=== PATIENT | male | born 1945 | race Caucasian/White ===

== ENCOUNTER → 2016-09-16 | Outpatient (CLI) | payer MEDICARE ==
[~2016-09-16] MED LIST: ASPI81TA45 PO; COLA100C3 PO; DULC5TAB PO; GLIP10TA PO; LISI-538 PO; LORT1ELX8 PO; MAGNESIUM OXIDE PO; METF1000 PO; NORCOTAB PO; SENO8.6T2 PO; SIMV20TA2 PO; ZOFR20TA PO
--- NOTE | 2016-09-16 11:56 | RADONC ---
RADIATION ONCOLOGY PROGRESS NOTE DATE: 09/16/2016 CHART NUMBER: [id number] DIAGNOSIS: Prostate cancer. STAGE: II, [id number]. ECOG PERFORMANCE STATUS: 0. FOLLOWUP NOTE: Mr. 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 The patient presents today reporting that he is doing quite well with no complaints today related to his radiation therapy or disease. He has no urinary or bowel difficulties and no bone pain. The patient's review of systems is noncontributory. He denies nausea, vomiting, fevers, chills, night sweats, diplopia, headaches, anxiety or depression, anorexia, weight loss, visual disturbances, chest pain, urinary or bowel difficulties, bone pain, or neurological problems. PHYSICAL EXAMINATION: The patient is a well-developed, well-nourished male in no acute distress. HEENT exam is normocephalic, atraumatic. Extraocular movements are intact. There is no palpable cervical, supraclavicular, infraclavicular, axillary, or inguinal lymphadenopathy present. Lungs are clear to auscultation and percussion. Heart has a regular rate and rhythm. Abdomen is benign with no hepatosplenomegaly, masses, or tenderness. Rectal examination reveals a normal anal sphincter tone. His prostate is smooth with no evidence of nodularity. Skeletal examination reveals no tenderness to pressure or percussion of the bony skeleton. Extremities reveal no clubbing, cyanosis, or edema. Neurologic exam is grossly intact as is the remainder of the physical examination. ASSESSMENT: The patient is clinically DARRIUS at this time and will be seen by me again in 1 year for further followup. He will also continue to be followed by his other physicians as well. cc: MD Juan Quintana MD
== END ==
LOC: M ONCR 11:16
PROVIDERS: ATTEND Radiology Radiation Oncology
DX: C61 Malignant neoplasm of prostate (principal)

== ENCOUNTER → 2016-11-02 | Outpatient (CLI) | payer MEDICARE ==
[~2016-11-02] VITALS: Ht 180.3 cm; Wt 96.2 kg
[~2016-11-02] MED LIST changes: +ASPI81TA85 PO; +DITR5TAB PO; +LIDOCAINE 2% INJ 100 MG/5 ML SDV (FOR ANES.) As Ordered ONE; +MAGN400C3 PO; +NAPR250T2 PO; +NS 1,000 ML IV ONE; +OMEP10CASR PO; +PROPOFOL 200 MG/20 ML VIAL As Ordered ONE
--- NOTE | 2016-11-02 09:26 | ROOR ---
Patient Name: Kev Angel Procedure Date: 11/02/2016 9:08 AM Date of : 1945 Age: 71 Room: [facility] Gender: Male Note Status: Finalized Procedure: Upper GI endoscopy Indications: Surveillance for malignancy due to personal history of Vega's esophagus Providers: Kev ARIZA MD Referring MD: Dolores GOULD MD Requesting Provider: Medicines: Monitored Anesthesia Care Complications: No immediate complications. Procedure: Pre-Anesthesia Assessment: - The heart rate, respiratory rate, oxygen saturations, blood pressure, adequacy of pulmonary ventilation, and response to care were monitored throughout the procedure. The Endoscope was introduced through the mouth, and advanced to the second part of duodenum. The upper GI endoscopy was accomplished without difficulty. The patient tolerated the procedure well. Findings: The Z-line was regular and was found 36 cm from the incisors. This was biopsied with a cold forceps for histology. A medium-sized hiatal hernia was present. The entire examined stomach was normal. The examined duodenum was normal. Impression: - Z-line regular, 36 cm from the incisors. No definite barretts esophagus was seen. Biopsied. - Medium-sized hiatal hernia. - Normal stomach. - Normal examined duodenum. Recommendation: - Continue present medications. Kev Ariza MD Kev ARIZA MD 11/02/2016 9:25:57 AM This report has been signed electronically. Number of Addenda: 0 Note Initiated On: 11/02/2016 9:08 AM Estimated Blood Loss: Estimated blood loss: none.
[2016-11-02 09:37] VITALS: BP 145/73
== END | disposition home or self-care (01) ==
LOC: M OPP 07:01
PROVIDERS: ATTEND Internal Medicine Gastroenterology
DX: K22.70 Barrett's esophagus without dysplasia (principal); R12 Heartburn; K44.9 Diaphragmatic hernia without obstruction or gangrene; I10 Essential (primary) hypertension; E78.5 Hyperlipidemia, unspecified; E11.9 Type 2 diabetes mellitus without complications; M19.90 Unspecified osteoarthritis, unspecified site; Z85.46 Personal history of malignant neoplasm of prostate; Z92.3 Personal history of irradiation; Z88.0 Allergy status to penicillin; Z79.82 Long term (current) use of aspirin; Z79.84 Long term (current) use of oral hypoglycemic drugs; Z79.899 Other long term (current) drug therapy

== ENCOUNTER 2019-05-18 06:24 | Day surgery (SDC) | payer MEDICARE ==
--- NOTE | 2019-05-16 09:11 | CR ---
DATE OF CONSULTATION: Preoperative consultation for Dr. Eubanks for right extracorporeal shock wave lithotripsy under conscious sedation scheduled 05/18/2019. Dear Dr. Eubanks: Thank you for asking me to see Mr. Kev Angel in consultation prior to his urologic procedure. Mr. Kve Angel is a 74-year-old gentleman, past medical history of type 2 diabetes, hypertension, hyperlipidemia, reporting that he has been in his usual state of good health. The patient reports his weight has been down. He has been eating less after having had a burn in his mouth which is presently improving and he is regaining some of the weight he lost. The patient has known hypertension. Denies any chest pain, palpitations, syncope or presyncope. Patient has type 2 diabetes. Denies polyuria, polyphagia, polydipsia. Reports compliance with his metformin and glipizide. Patient has history of compression fracture, right shoulder fracture, sacral coccygeal fracture, and left knee arthroscopy. Reports all these arthritic symptoms are chronic and stable. Patient reports he is active but not exercising regularly, and again denies chest pain, palpitations, syncope or presyncope. Patient reports onset of right low back pain ultimately found to be secondary to kidney stone. Pain is tolerable on just Tylenol. Review of systems otherwise negative. PAST MEDICAL HISTORY: 1. Type 2 diabetes. 2. Hyperlipidemia. 3. Vega's esophagitis. 4. History of compression fracture. 5. History of right shoulder fracture. 6. Dyaz-id-tcrhphw. 7. Hiatal hernia. 8. Esophageal dysmotility. 9. Low back pain. 10. History of pneumonia. 11. Obesity. 12. Cholecystectomy 05/21/2012. 13. Comp injury right 5th finger 09/19/2005. 14. Prostate CA 07/23/2014. 15. Sacral coccygeal fracture September 2013. 16. Left knee arthroscopy August 2013. 17. Nephrolithiasis right kidney 2018. MEDICATIONS: - baby aspirin daily - glipizide 5 mg two times a day - lisinopril 20 mg daily - magnesium 400 mg two daily - metformin 1000 mg two times a day - omeprazole 20 mg daily - simvastatin 40 mg half to one daily ALLERGIES are to PENICILLIN. SOCIAL HISTORY: Retired, lives with , supportive son lives nearby. Never smoked. Denies alcohol use. FAMILY HISTORY: Mom had a stroke at 84. Dad at 42 of unknown causes. A sister at 73 of pancreatic cancer, chronic obstructive pulmonary disease (COPD). PHYSICAL EXAMINATION: Overweight male in no acute distress. Vital signs are weight 208 with a body mass index (BMI) of 31.2, oxygen saturation 97%, blood pressure 150/72 with a heart rate of 71. HEENT Examination: Head is normocephalic. Neck is supple. Pupils equal, reactive to light. Extraocular movements are intact. He has bilateral cerumen impaction. Tongue is midline. Posterior pharynx without inflammation. Poor dentition. Neck is supple. No thyromegaly, jugular venous distention (JVD) or carotid bruits. Respiratory: Clear to auscultation, resonant to percussion. Cardiovascular: Regular rate and rhythm. No murmur, rub, gallop. Abdomen: Normoactive bowel sounds. No hepatosplenomegaly. Extremities: No cyanosis, clubbing or edema. Some osteoarthritis (OA) changes of the distal interphalangeal joint (DIP) joints. Evidence of severe nail biting with minimal nail visualized. Dermatologic: Multiple moles, perkins angiomas. Neurologic: Alert and oriented. Cranial nerves II-XII are intact. LABORATORY DATA: From 05/12/2019 the patient had a normal med profile, CBC except for a platelet count of 140, acceptable PT/PTT. Normal UA. EKG done in my office 05/15/2019, normal sinus rhythm, rate of 71, normal R wave progression. No atrial or ventricular hypertrophy. He does have Q waves in III and aVF, unchanged from EKG 02/10/2015, cannot rule out inferior myocardial infarction. He has a normal CO, QRS, QTC interval. IMPRESSION: Mr. Kev Angel, 74-year-old gentleman, cardiovascular risk factors positive for hypertension, hyperlipidemia, type 2 diabetes, age, has no signs or symptoms indicative of cardiovascular ischemia and is felt to be optimized and at low risk for cardiovascular complications from the proposed surgical intervention which can be further minimized by the following. PROBLEMS: 1. Diabetes 2. Hold metformin, glipizide a.m. of surgery, resume when taking normal oral intake. Hold aspirin a.m. of surgery as well. 2. Hyperlipidemia. Take simvastatin as usual evening prior to surgery. 3. Vega's esophagitis. Take omeprazole as usual evening prior to surgery. 4. Low back pain. Nonsteroidal anti-inflammatory drugs (NSAIDs) on hold. Use Tylenol if needed. 5. Hypertension. Take lisinopril as usual following surgery. 6. Bilateral ceruminosis. Conservative advice. Thank you very much for this consultation. Please call with questions or concerns.
[~2019-05-18] VITALS: Ht 177.8 cm; Wt 89.3 kg
[~2019-05-18 06:24] MED LIST changes: -COLA100C3 PO; +COLA100C5 PO; +GLIP5TAB8 PO; +HYDR-3715 PO; +LIDOCAINE 1% MDV 20ML VIAL SQ PRN; -LIDOCAINE 2% INJ 100 MG/5 ML SDV (FOR ANES.) As Ordered ONE; +MAGN400C2 PO; -METF1000 PO; +METF10004 PO; -NAPR250T2 PO; +NAPR250T4 PO; -NORCOTAB PO; -NS 1,000 ML IV ONE; -PROPOFOL 200 MG/20 ML VIAL As Ordered ONE; -SENO8.6T2 PO; +SENO8.6T5 PO; -SIMV20TA2 PO; +SIMV20TA22 PO; -ZOFR20TA PO; +ZOFR4TAB16 PO
[2019-05-18] MEDS ORDERED: CIPROFLOXACIN 400 MG in IV 1 EA IV ONE (06:45)
--- NOTE | 2019-05-18 07:11 | REP ---
Clinical: Kidney stone. Technique: Single supine view of the abdomen and pelvis. Findings: No obvious urinary tract calcifications are appreciated. There is a 2 mm calcification in the left deana pelvis which most likely represents phlebolith. Bowel gas pattern is nonspecific. No organomegaly. Skeletal structures demonstrate age-related changes. Impression: No obvious urinary tract calcifications Electronically Signed by Jesse Posey MD 05/18/2019 07:03 A
[2019-05-18] MEDS ORDERED: PROPOFOL 200 MG/20 ML VIAL As Ordered ONE (07:49)
[2019-05-18] MEDS ORDERED: LIDOCAINE 2% INJ 100 MG/5 ML SDV (FOR ANES.) As Ordered ONE (07:50)
[2019-05-18] MEDS ORDERED: ONDANSETRON 4MG/2ML VIAL (J2405) As Ordered ONE (07:50)
[2019-05-18] MEDS ORDERED: LR 1,000 ML IV ONE (07:51)
[2019-05-18] MEDS ORDERED: fentaNYL 100 MCG/2 ML INJECTION (J3010) As Ordered ONE (07:51)
[2019-05-18] MEDS ORDERED: MIDAZOLAM INJ 2 MG/2 ML VIAL (J2250) As Ordered ONE (07:51)
--- NOTE | 2019-05-18 08:07 | ECGEPIP ---
[facility] Test Date: 2019-05-18 Pat Name: MEÑO GONZALEZ Department: Room: - Gender: Male [place] [employer]man: : 1945 Requested By: FLAVIO Thomas Order Number: [id number] Reading MD: Klaus Ballard Measurements Intervals [place] Rate: 76 P: 14 [place]: 207 QRS: -12 QRSD: 91 T: 13 QT: 342 QTc: 385 Interpretive Statements Normal sinus rhythm Q waves in III, AVF of indeterminate significance No significant change when compared to prior tracing of 02/10/2015 Electronically Signed on 05-18-2019 8:07:21 EST by Klaus Ballard
[2019-05-18] MEDS ORDERED: ePHEDrine SULFATE 25 MG/5 ML(5MG/ML) SYRINGE As Ordered ONE (08:41)
[2019-05-18 09:37] VITALS: BP 154/81
--- NOTE | 2019-05-18 09:58 | RO ---
DATE OF PROCEDURE: 05/17/2019 PREPROCEDURE DIAGNOSIS: Right kidney stone. POSTPROCEDURE DIAGNOSIS: Right kidney stone. PROCEDURE: Right extracorporeal shockwave lithotripsy. SURGEON: Dr. Prakash Eubanks SEAT COVERER: None ANESTHESIA: Monitored anesthesia care (MAC). OPERATIVE INDICATIONS: This is a 74-year-old male who was found to have a nonobstructing 4 mm right kidney stone. He was brought to the operating room today for the above listed procedure. DESCRIPTION OF PROCEDURE: The patient was brought to the operating room and MAC anesthesia was administered. Prophylactic antibiotics were infused. He was then placed in the supine position in preparation for right sided extracorporeal shockwave lithotripsy. Ultrasound was utilized to monitor stone position and fragmentation throughout the procedure. Shockwaves were then delivered to the right sided kidney stone ungated. There were no arrhythmias. The stone appeared to fragment well. After 2500 shocks, the procedure was concluded. The patient was then awakened from anesthesia and transported to the recovery room in stable condition. Estimated blood loss: 0 mL. Complications: None. Specimens: None. Plan: The patient will followup in the clinic in a few weeks with imaging prior to assess for residual stone burden. KRISTINA
== END 2019-05-18 10:20 | disposition home or self-care (01) ==
LOC: M SDC 06:24
PROVIDERS: ATTEND Urology
DX: N20.0 Calculus of kidney (principal); I10 Essential (primary) hypertension; E11.9 Type 2 diabetes mellitus without complications; E78.5 Hyperlipidemia, unspecified; Z88.0 Allergy status to penicillin; Z88.5 Allergy status to narcotic agent; Z79.84 Long term (current) use of oral hypoglycemic drugs; Z79.899 Other long term (current) drug therapy; Z92.3 Personal history of irradiation; Z85.46 Personal history of malignant neoplasm of prostate
CPT/HCPCS: 50590; 74018; 93005; J0744; J2250; J2405; J3010

== ENCOUNTER → 2019-11-15 | Outpatient (CLI) | payer MEDICARE ==
[~2019-11-15] MED LIST changes: -LIDOCAINE 1% MDV 20ML VIAL SQ PRN
--- NOTE | 2019-11-19 10:23 | RADONC ---
RADIATION ONCOLOGY DATE OF SERVICE: 11/15/2019 CHART NUMBER: [id number]. DIAGNOSIS: Prostate cancer stage II, [id number]. ECOG PERFORMANCE STATUS: 0. Mr. Angel is a pleasant 74-year-old gentleman, carries the diagnosis of stage II, [id number], [place] 9, 5+4, adenocarcinoma of prostate. He completed external radiation therapy in 2008. He presented today doing very well without any complaints. He has no urinary problems. His nocturia is one to twice. No dysuria. He has no bowel problems. No bone pain. He also denies fever, chills, weight changes, or respiratory problems. PHYSICAL EXAMINATION: Vital signs: He weighs 195.8 pounds, temperature 97.5, pulse 71, respiration 20, blood pressure 178/100, O2 saturation is 98% in room air. He is well developed, nourished, not in apparent distress. The rest of the examination is noncontributory. Lungs are clear. There is no bony tenderness over the spine indicated. ASSESSMENT AND RECOMMENDATION: A 74-year-old gentleman who carries the diagnosis of stage II, [id number], Bri 9, 5+4, adenocarcinoma of the prostate. He completed radiation therapy 11 years ago. He has been doing very well without any complaints. He has no or GI symptoms. He has no bone pain. His last PSA on November 06, 2019, was reported to be 0.16 ng/mL. He was advised continuous followup care with physicians involved, and he is discharged from our care.
== END ==
LOC: M ONCR 08:20
PROVIDERS: ATTEND Radiology Radiation Oncology
DX: C61 Malignant neoplasm of prostate (principal)

== ENCOUNTER → 2020-12-31 | Outpatient (REF) | payer MEDICARE ==
[~2020-12-31] MED LIST changes: -ASPI81TA85 PO; +ASPI81TA86 PO; -LISI-538 PO; +LISI20TA33 PO; +NAPR-849 PO; -NAPR250T4 PO
== END ==
LOC: M LAB REF 16:25
PROVIDERS: ATTEND Internal Medicine
DX: R63.4 Abnormal weight loss (principal); R19.7 Diarrhea, unspecified

== ENCOUNTER → 2021-02-27 | Outpatient (CLI) | payer MEDICARE ==
--- NOTE | 2021-02-27 17:30 | REP ---
INDICATION: M47.02 DYSPHAGIA. COMPARISON: NONE TECHNIQUE: The procedure was performed under the direct supervision of . The procedure was performed with Breana Hurtado from speech pathology present. 2.2 minutes of fluoroscopy time was utilized for this procedure. FINDINGS: 5 cc aliquots of thin, pudding, mixed fruit, soft and solid barium was administered. There is no evidence of penetration or aspiration. A detailed report of this examination will be provided by speech pathology. IMPRESSION: There is no evidence of penetration or aspiration. A detailed report of this examination will be provided by speech pathology. <Electronically signed by Mateo Bowden > 02/27/21 [id number] <Electronically signed by Alex Romero > 02/27/21 [id number]
== END ==
LOC: M RAD 11:08
PROVIDERS: ATTEND Otolaryngology
DX: R47.02 Dysphasia (principal)

== ENCOUNTER → 2021-05-15 | Outpatient (CLI) | payer MEDICARE ==
[~2021-05-15] MED LIST changes: +BUPR300T92 PO; +ECOT81TA5 PO; +OXYB5TAB10 PO; +SIMV40TA20 PO
== END ==
LOC: M LABSMTC 11:01
PROVIDERS: ATTEND Anesthesiology
DX: Z01.818 Encounter for other preprocedural examination (principal); Z11.52 Encounter for screening for COVID-19

== ENCOUNTER 2021-05-20 07:53 | Day surgery (SDC) | payer MEDICARE ==
[~2021-05-20] VITALS: Ht 182.9 cm; Wt 84.8 kg
[~2021-05-20 07:53] MED LIST changes: +NS 1,000 ML IV ONE; +fentaNYL 100 MCG/2 ML INJECTION (J3010) As Ordered ONE
[2021-05-20] MEDS ORDERED: LIDOCAINE 2% 100MG/5ML SDV (FOR ANES.) As Ordered ONE (09:06)
[2021-05-20] MEDS ORDERED: propofoL 200 MG/20 ML VIAL As Ordered ONE (09:06)
[2021-05-20 10:40] VITALS: BP 132/68
== END 2021-05-20 10:57 | disposition home or self-care (01) ==
LOC: M OPP 07:53
PROVIDERS: ATTEND Internal Medicine Gastroenterology
DX: K22.2 Esophageal obstruction (principal); K22.89 Other specified disease of esophagus; K44.9 Diaphragmatic hernia without obstruction or gangrene; Z87.19 Personal history of other diseases of the digestive system; R12 Heartburn; Z79.899 Other long term (current) drug therapy; Z79.84 Long term (current) use of oral hypoglycemic drugs; Z85.46 Personal history of malignant neoplasm of prostate; Z92.3 Personal history of irradiation; Z88.0 Allergy status to penicillin; Z88.5 Allergy status to narcotic agent
CPT/HCPCS: 43239; 88305; J3010

== ENCOUNTER → 2021-06-03 | Outpatient (REF) | payer MEDICARE ==
[~2021-06-03] MED LIST changes: -NS 1,000 ML IV ONE; -fentaNYL 100 MCG/2 ML INJECTION (J3010) As Ordered ONE
[2021-06-03 17:50] LABS: APPEARANCE, URINE CLOUDY (CLEAR); BACTERIA, URINE AUTO 2+ (NEGATIVE); BILIRUBIN, URINE AUTO NEGATIVE (NEGATIVE); BLOOD, URINE BLOOD 3+ (NEGATIVE); COLOR, URINE YELLOW (YELLOW); GLUCOSE, URINE (UA) AUTO 3+ mg/dL (NEGATIVE); KETONE, URINE AUTO NEGATIVE (NEGATIVE); LEUKOCYTE ESTERASE, URINE AUTO 3+ (NEGATIVE); MUCUS, URINE SMALL (NEGATIVE); NITRITE, URINE AUTO NEGATIVE (NEGATIVE); PROTEIN, URINE AUTO 2+ mg/dL (NEGATIVE); RBC, URINE AUTO TNTC /HPF (0-3); SPECIFIC GRAVITY URINE AUTO 1.012 (1.002-1.035); SQUAMOUS EPITHELIAL CELL UR AU 0 /HPF (0-6); UROBILINOGEN, URINE AUTO 0.2 mg/dL (0.0-2.0); WBC, URINE AUTO TNTC /HPF (0-3)
== END ==
LOC: M LAB REF 16:29
PROVIDERS: ATTEND Internal Medicine
DX: R31.9 Hematuria, unspecified (principal)

== ENCOUNTER → 2021-07-09 | Outpatient (CLI) | payer MEDICARE ==
[~2021-07-09] MED LIST changes: +OMEP-173 PO; +TAMS1CAP17 PO
== END ==
LOC: M LABSMTC 10:17
PROVIDERS: ATTEND Anesthesiology
DX: Z01.818 Encounter for other preprocedural examination (principal); Z11.52 Encounter for screening for COVID-19

== ENCOUNTER 2021-07-16 12:45 | Day surgery (SDC) | payer MEDICARE ==
[~2021-07-16] VITALS: Ht 182.9 cm; Wt 82.3 kg
[~2021-07-16 12:45] MED LIST changes: +BACTDSTA PO; +CIPROFLOXACIN 400 MG in IV 1 EA IV ONE; +LR 1,000 ML IV ONE
[2021-07-16] MEDS ORDERED: ONDANSETRON 4MG/2ML VIAL As Ordered ONE (15:25)
[2021-07-16] MEDS ORDERED: propofoL 200 MG/20 ML VIAL As Ordered ONE (15:25)
[2021-07-16] MEDS ORDERED: LIDOCAINE 2% 100MG/5ML SDV (FOR ANES.) As Ordered ONE (15:25)
[2021-07-16] MEDS ORDERED: dexameTHASONE 4 MG/ML 1ML VIAL (J1100 PER 1MG) As Ordered ONE (15:25)
[2021-07-16] MEDS ORDERED: fentaNYL 100 MCG/2 ML INJECTION As Ordered ONE (15:34)
[2021-07-16] MEDS ORDERED: MIDAZOLAM INJ 2MG/2ML VIAL (J2250 PER 1MG) As Ordered ONE (15:34)
[2021-07-16] MEDS ORDERED: CONRAY-60 60% 50ML VIAL (Q9961) As Ordered ONE (15:57)
[2021-07-16] MEDS ORDERED: PHENYLephrine 500MCG 5ML (100MCG/ML) SYRINGE As Ordered ONE (16:37)
[2021-07-16] MEDS ORDERED: fentaNYL 100 MCG/2 ML INJECTION IV PRN (17:25)
[2021-07-16] MEDS ORDERED: LR 1,000 ML IV SCH (17:25)
[2021-07-16] MEDS ORDERED: PERCOCET 5MG/325MG TAB PO PRN (17:25)
[2021-07-16] MEDS ORDERED: MEPERIDINE INJ 25 MG/ML VIAL (J2175) IV PRN (17:25)
[2021-07-16] MEDS ORDERED: oxyCODONE 5MG TAB PO PRN (17:25)
[2021-07-16] MEDS ORDERED: ONDANSETRON 4MG/2ML VIAL IV PRN (17:25)
[2021-07-16 17:52] VITALS: BP 164/76
== END 2021-07-16 18:25 | disposition home or self-care (01) ==
LOC: M SDC 12:45
PROVIDERS: ATTEND Urology
DX: N28.89 Other specified disorders of kidney and ureter (principal); E11.9 Type 2 diabetes mellitus without complications; E78.5 Hyperlipidemia, unspecified; K22.70 Barrett's esophagus without dysplasia; K44.9 Diaphragmatic hernia without obstruction or gangrene; I10 Essential (primary) hypertension; F32.9 Major depressive disorder, single episode, unspecified; M54.50 Low back pain, unspecified; K21.9 Gastro-esophageal reflux disease without esophagitis; Z85.46 Personal history of malignant neoplasm of prostate; R32 Unspecified urinary incontinence; R31.9 Hematuria, unspecified; Z87.81 Personal history of (healed) traumatic fracture; Z88.0 Allergy status to penicillin; Z88.5 Allergy status to narcotic agent; Z79.899 Other long term (current) drug therapy; Z79.82 Long term (current) use of aspirin; Z79.1 Long term (current) use of non-steroidal anti-inflammatories (NSAID); Z79.2 Long term (current) use of antibiotics; Z88.6 Allergy status to analgesic agent
CPT/HCPCS: 52332; 52351; 74420; C1769; C1894; C2617; J0744; J1100; J2250; J2370; J2405; J3010; Q9961

== ENCOUNTER → 2021-10-15 | Outpatient (REF) | payer MEDICARE ==
[~2021-10-15] MED LIST changes: -CIPROFLOXACIN 400 MG in IV 1 EA IV ONE; -LR 1,000 ML IV ONE
== END ==
LOC: M LAB REF 16:09
PROVIDERS: ATTEND Registered Nurse
DX: R63.4 Abnormal weight loss (principal); R53.1 Weakness

== ENCOUNTER 2022-03-05 22:13 | Inpatient (IN) | payer MEDICARE ==
[~2022-03-05] VITALS: Ht 177.8 cm; Wt 74.2 kg
[2022-03-05 22:57] LABS: BASO # 0.1 10^3/uL (0.0-0.2); BASO % 0.6 % (0.0-1.0); EOS # 0.3 10^3/uL (0.0-0.5); EOS % 3.6 % (0.0-3.0); HEMATOCRIT 39.9 % (42.0-52.0); HEMOGLOBIN 13.2 g/dl (13.5-17.5); LYMPH # 1.4 10^3/uL (1.5-5.0); LYMPH % 17.2 % (24.0-44.0); MEAN CORPUSCULAR HEMOGLOBIN 29.1 pg (27.0-33.0); MEAN CORPUSCULAR HGB CONC 33.1 g/dl (32.0-36.5); MEAN CORPUSCULAR VOLUME 88.1 fl (80.0-96.0); MONO # 0.6 10^3/uL (0.0-0.8); MONO % 7.6 % (2.0-8.0); NEUTROPHILS # 5.9 10^3/uL (1.5-8.5); NEUTROPHILS % 70.5 % (36.0-66.0); PLATELET COUNT, AUTOMATED 132 10^3/uL (150-450); RED BLOOD COUNT 4.53 10^6/uL (4.30-6.10); WHITE BLOOD COUNT 8.4 10^3/uL (4.0-10.0)
[2022-03-05 23:31] LABS: CK-MB VALUE MASS 1.2 NG/ML (<3.6); MB/CK RELATIVE INDEX 1.94 (< OR =4)
[2022-03-05 23:37] LABS: ALBUMIN 3.5 GM/DL (3.2-5.2); BILIRUBIN,DIRECT 0.3 MG/DL (0.0-0.2); BILIRUBIN,TOTAL 0.7 MG/DL (0.2-1.0); CALCIUM LEVEL 9.5 MG/DL (8.8-10.2); CREATININE FOR GFR 2.25 MG/DL (0.70-1.30); GLOMERULAR FILTRATION RATE 30.2 (>42); POTASSIUM SERUM 5.2 MEQ/L (3.5-5.1); THYROID STIMULATING HORMONE 0.63 uIU/ML (0.358-3.740); TOTAL PROTEIN 6.9 GM/DL (6.4-8.2)
[2022-03-05] MEDS ORDERED: NS 500 ML IV ONE (23:40)
[2022-03-05 23:53] LABS: RSV AMPLIFICATION NEGATIVE (NEGATIVE)
[2022-03-05] MEDS: NS 1,000 ML IV SCH (23:54)
[2022-03-06] MEDS ORDERED: LISI2.5T9 PO (00:15)
[2022-03-06] MEDS ORDERED: HOME MED LIST COMPLETE! XX SCH (00:20)
[2022-03-06] MEDS ORDERED: LIDOCAINE 2% 5ML JELLY UROJET TOP ONE (00:50)
[2022-03-06] MEDS ORDERED: GLUCAGON INJ 1MG VIAL SC PRN (01:55)
[2022-03-06] MEDS ORDERED: DEXTROSE 50% 50 ML SYRINGE IV PRN (01:55)
[2022-03-06] MEDS ORDERED: GLUCOSE 4GM CHEW TABLET PO PRN (01:55)
[2022-03-06] MEDS ORDERED: LevoFLOXacin IV 250 MG in IV 1 EA IV SCH (02:15)
[2022-03-06] MEDS ORDERED: LevoFLOXacin IV 500 MG in IV 1 EA IV ONE (03:00)
[2022-03-06] MEDS: INSULIN LISPRO (NovoLOG) PER UNIT SC SCH ×4 (07:30→21:45)
[2022-03-06 07:32] LABS: HEMATOCRIT 35.7 % (42.0-52.0); HEMOGLOBIN 11.9 g/dl (13.5-17.5); MEAN CORPUSCULAR HEMOGLOBIN 29.5 pg (27.0-33.0); MEAN CORPUSCULAR HGB CONC 33.3 g/dl (32.0-36.5); MEAN CORPUSCULAR VOLUME 88.6 fl (80.0-96.0); PLATELET COUNT, AUTOMATED 101 10^3/uL (150-450); RED BLOOD COUNT 4.03 10^6/uL (4.30-6.10); WHITE BLOOD COUNT 6.4 10^3/uL (4.0-10.0)
[2022-03-06 08:09] LABS: CALCIUM LEVEL 9.2 MG/DL (8.8-10.2); CREATININE FOR GFR 1.73 MG/DL (0.70-1.30); GLOMERULAR FILTRATION RATE 40.9 (>42); POTASSIUM SERUM 4.7 MEQ/L (3.5-5.1)
[2022-03-06] MEDS ORDERED: HEPARIN SOD (PORCINE) 5000UNITS/ML 1ML VIAL/SYRINGE SC SCH (09:00)
[2022-03-06] MEDS: NS 1,000 ML IV SCH ×2 (11:25→21:55)
[2022-03-06 13:25] VITALS: BP 147/70
[2022-03-06] MEDS: HEPARIN SOD (PORCINE) 5000UNITS/ML 1ML VIAL/SYRINGE SC SCH (15:15)
[2022-03-06 20:00] VITALS: BP 150/72
[2022-03-07] MEDS ORDERED: LevoFLOXacin IV 250 MG in IV 1 EA IV SCH (03:00)
[2022-03-07 05:00] VITALS: BP 135/64
[2022-03-07] MEDS ORDERED: OMEPRAZOLE 20MG CAP PO PRN (05:35)
[2022-03-07 07:29] LABS: CREATININE FOR GFR 1.27 MG/DL (0.70-1.30); GLOMERULAR FILTRATION RATE 58.4 (>42); MAGNESIUM LEVEL 1.9 MG/DL (1.8-2.4); POTASSIUM SERUM 4.1 MEQ/L (3.5-5.1)
[2022-03-07] MEDS: INSULIN LISPRO (NovoLOG) PER UNIT SC SCH ×4 (07:30→20:27)
[2022-03-07] MEDS ORDERED: FLUBLOK(EGG FREE)(QUAD)INFLUENZA VACC 0.5ML SYRINGE 18YRS & OLDER IM.IMMUN ONE (09:00)
[2022-03-07] MEDS ORDERED: PREVNAR-20 VACCINE 0.5ML SYRINGE IM.IMMUN ONE (09:00)
[2022-03-07] MEDS: TAMSULOSIN 0.4 MG CAP PO SCH (09:39)
[2022-03-07] MEDS: ASPIRIN 81MG ENTERIC TABLET PO SCH (09:39)
[2022-03-07] MEDS: NS 1,000 ML IV SCH (09:39)
[2022-03-07] MEDS: NYSTATIN 100,000 UNITS/GM TOPICAL PWD 15 GM TOP SCH ×2 (09:40→20:27)
[2022-03-07 14:00] VITALS: BP 121/47
[2022-03-07] MEDS: SIMVASTATIN 40 MG TAB PO SCH (20:27)
[2022-03-08 05:15] VITALS: BP 117/50
[2022-03-08] MEDS: LevoFLOXacin 750 MG TABLET PO SCH (05:23)
[2022-03-08 06:38] LABS: HEMATOCRIT 30.5 % (42.0-52.0); HEMOGLOBIN 10.3 g/dl (13.5-17.5); MEAN CORPUSCULAR HEMOGLOBIN 29.8 pg (27.0-33.0); MEAN CORPUSCULAR HGB CONC 33.8 g/dl (32.0-36.5); MEAN CORPUSCULAR VOLUME 88.2 fl (80.0-96.0); RED BLOOD COUNT 3.46 10^6/uL (4.30-6.10); WHITE BLOOD COUNT 5.9 10^3/uL (4.0-10.0)
[2022-03-08 07:18] LABS: CALCIUM LEVEL 8.8 MG/DL (8.8-10.2); CREATININE FOR GFR 1.24 MG/DL (0.70-1.30); MAGNESIUM LEVEL 1.6 MG/DL (1.8-2.4); PHOSPHORUS LEVEL 3.1 MG/DL (2.5-4.9); POTASSIUM SERUM 3.9 MEQ/L (3.5-5.1)
[2022-03-08 08:38] LABS: PLATELET COUNT, AUTOMATED 90 10^3/uL (150-450)
[2022-03-08] MEDS: INSULIN LISPRO (NovoLOG) PER UNIT SC SCH ×4 (08:38→20:46)
[2022-03-08] MEDS: NYSTATIN 100,000 UNITS/GM TOPICAL PWD 15 GM TOP SCH ×2 (08:39→20:49)
[2022-03-08] MEDS: TAMSULOSIN 0.4 MG CAP PO SCH (08:39)
[2022-03-08] MEDS: ASPIRIN 81MG ENTERIC TABLET PO SCH (08:39)
[2022-03-08] MEDS ORDERED: MAGNESIUM OXIDE 400MG TAB (MAG-OX) PO ONE (13:50)
[2022-03-08] MEDS: HEPARIN SOD (PORCINE) 5000UNITS/ML 1ML VIAL/SYRINGE SC SCH ×2 (14:14→20:50)
[2022-03-08] MEDS: buPROPion **XL** TABLET 150MG (WELLBUTRIN XL) PO SCH (14:15)
[2022-03-08] MEDS: oxyBUTYnin 5 MG TAB PO SCH (14:15)
[2022-03-08] MEDS ORDERED: BISACODYL 10 MG SUPP PR PRN (20:35)
[2022-03-08] MEDS: SIMVASTATIN 40 MG TAB PO SCH (20:49)
[2022-03-08] MEDS: DOCUSATE SODIUM 100MG CAPSULE PO SCH (20:49)
[2022-03-09] MEDS: HEPARIN SOD (PORCINE) 5000UNITS/ML 1ML VIAL/SYRINGE SC SCH ×2 (05:07→13:39)
[2022-03-09 06:15] VITALS: BP 120/67
[2022-03-09 06:39] LABS: BLOOD UREA NITROGEN 26 MG/DL (7-18); CALCIUM LEVEL 8.9 MG/DL (8.8-10.2); CARBON DIOXIDE LEVEL 27 MEQ/L (21-32); CHLORIDE LEVEL 111 MEQ/L (98-107); CREATININE FOR GFR 1.18 MG/DL (0.70-1.30); GLOMERULAR FILTRATION RATE > 60.0 (>42); GLUCOSE, FASTING 168 MG/DL (70-100); MAGNESIUM LEVEL 1.9 MG/DL (1.8-2.4); PHOSPHORUS LEVEL 3.5 MG/DL (2.5-4.9); POTASSIUM SERUM 3.9 MEQ/L (3.5-5.1); SODIUM LEVEL 143 MEQ/L (136-145)
[2022-03-09] MEDS: INSULIN LISPRO (NovoLOG) PER UNIT SC SCH ×4 (07:30→20:35)
[2022-03-09] MEDS ORDERED: MIRALAX *UNIT DOSE* 17GM PACKET PO SCH (09:00)
[2022-03-09] MEDS ORDERED: ENOXAPARIN 40MG/0.4ML SYRINGE (J1650 PER 10MG) SC SCH (09:00)
[2022-03-09] MEDS: TAMSULOSIN 0.4 MG CAP PO SCH (09:59)
[2022-03-09] MEDS: ASPIRIN 81MG ENTERIC TABLET PO SCH (09:59)
[2022-03-09] MEDS: NYSTATIN 100,000 UNITS/GM TOPICAL PWD 15 GM TOP SCH ×2 (09:59→20:35)
[2022-03-09] MEDS: buPROPion **XL** TABLET 150MG (WELLBUTRIN XL) PO SCH (09:59)
[2022-03-09] MEDS: oxyBUTYnin 5 MG TAB PO SCH (09:59)
[2022-03-09] MEDS: DOCUSATE SODIUM 100MG CAPSULE PO SCH ×2 (09:59→20:35)
[2022-03-09] MEDS ORDERED: SENNA 8.6 MG TAB (SENOKOT) PO ONE (20:25)
[2022-03-09] MEDS: SIMVASTATIN 40 MG TAB PO SCH (20:35)
[2022-03-10 06:00] VITALS: BP 118/58
[2022-03-10] MEDS: LevoFLOXacin 750 MG TABLET PO SCH (06:18)
[2022-03-10 06:46] LABS: HEMATOCRIT 31.5 % (42.0-52.0); HEMOGLOBIN 10.4 g/dl (13.5-17.5); MEAN CORPUSCULAR HEMOGLOBIN 29.5 pg (27.0-33.0); MEAN CORPUSCULAR VOLUME 89.5 fl (80.0-96.0); RED BLOOD COUNT 3.52 10^6/uL (4.30-6.10); WHITE BLOOD COUNT 4.8 10^3/uL (4.0-10.0)
[2022-03-10 06:51] LABS: PLATELET COUNT, AUTOMATED 96 10^3/uL (150-450)
[2022-03-10] MEDS: INSULIN LISPRO (NovoLOG) PER UNIT SC SCH ×4 (07:30→20:36)
[2022-03-10] MEDS: buPROPion **XL** TABLET 150MG (WELLBUTRIN XL) PO SCH (09:50)
[2022-03-10] MEDS: oxyBUTYnin 5 MG TAB PO SCH (09:50)
[2022-03-10] MEDS: ASPIRIN 81MG ENTERIC TABLET PO SCH (09:51)
[2022-03-10] MEDS: DOCUSATE SODIUM 100MG CAPSULE PO SCH ×2 (09:51→20:45)
[2022-03-10] MEDS: TAMSULOSIN 0.4 MG CAP PO SCH (09:51)
[2022-03-10] MEDS: NYSTATIN 100,000 UNITS/GM TOPICAL PWD 15 GM TOP SCH ×2 (09:51→20:47)
[2022-03-10] MEDS: ENOXAPARIN 40MG/0.4ML SYRINGE (J1650 PER 10MG) SC SCH (10:35)
[2022-03-10] MEDS ORDERED: ONDANSETRON 4MG ORAL DISINTEGRATING TAB PO ONE (12:30)
[2022-03-10] MEDS: MIRALAX *UNIT DOSE* 17GM PACKET PO SCH (13:07)
[2022-03-10] MEDS: SIMVASTATIN 40 MG TAB PO SCH (20:45)
[2022-03-11 06:29] VITALS: BP 101/55
[2022-03-11] MEDS: TAMSULOSIN 0.4 MG CAP PO SCH (10:29)
[2022-03-11] MEDS: buPROPion **XL** TABLET 150MG (WELLBUTRIN XL) PO SCH (10:29)
[2022-03-11] MEDS: DOCUSATE SODIUM 100MG CAPSULE PO SCH ×2 (10:30→21:20)
[2022-03-11] MEDS: MIRALAX *UNIT DOSE* 17GM PACKET PO SCH (10:30)
[2022-03-11] MEDS: ASPIRIN 81MG ENTERIC TABLET PO SCH (10:30)
[2022-03-11] MEDS: INSULIN LISPRO (NovoLOG) PER UNIT SC SCH ×4 (10:30→21:00)
[2022-03-11] MEDS: oxyBUTYnin 5 MG TAB PO SCH (10:30)
[2022-03-11] MEDS: NYSTATIN 100,000 UNITS/GM TOPICAL PWD 15 GM TOP SCH ×2 (10:31→21:21)
[2022-03-11] MEDS: ENOXAPARIN 40MG/0.4ML SYRINGE (J1650 PER 10MG) SC SCH (13:37)
[2022-03-11] MEDS: SIMVASTATIN 40 MG TAB PO SCH (21:20)
[2022-03-12 06:07] VITALS: BP 148/70
[2022-03-12] MEDS: buPROPion **XL** TABLET 150MG (WELLBUTRIN XL) PO SCH (08:36)
[2022-03-12] MEDS: TAMSULOSIN 0.4 MG CAP PO SCH (08:36)
[2022-03-12] MEDS: ASPIRIN 81MG ENTERIC TABLET PO SCH (08:36)
[2022-03-12] MEDS: DOCUSATE SODIUM 100MG CAPSULE PO SCH ×2 (08:36→20:58)
[2022-03-12] MEDS: MIRALAX *UNIT DOSE* 17GM PACKET PO SCH (08:36)
[2022-03-12] MEDS: INSULIN LISPRO (NovoLOG) PER UNIT SC SCH ×4 (08:37→21:00)
[2022-03-12] MEDS: ENOXAPARIN 40MG/0.4ML SYRINGE (J1650 PER 10MG) SC SCH (08:37)
[2022-03-12] MEDS: NYSTATIN 100,000 UNITS/GM TOPICAL PWD 15 GM TOP SCH ×2 (08:38→21:55)
[2022-03-12] MEDS: oxyBUTYnin 5 MG TAB PO SCH (08:39)
[2022-03-12 10:17] LABS: BASO % 0.9 % (0.0-1.0); EOS # 0.4 10^3/uL (0.0-0.5); EOS % 7.9 % (0.0-3.0); HEMATOCRIT 35.1 % (42.0-52.0); HEMOGLOBIN 11.4 g/dl (13.5-17.5); LYMPH % 21.4 % (24.0-44.0); MEAN CORPUSCULAR HEMOGLOBIN 29.2 pg (27.0-33.0); MEAN CORPUSCULAR HGB CONC 32.5 g/dl (32.0-36.5); MEAN CORPUSCULAR VOLUME 89.8 fl (80.0-96.0); MONO # 0.3 10^3/uL (0.0-0.8); NEUTROPHILS # 2.8 10^3/uL (1.5-8.5); NEUTROPHILS % 61.9 % (36.0-66.0); PLATELET COUNT, AUTOMATED 122 10^3/uL (150-450); RED BLOOD COUNT 3.91 10^6/uL (4.30-6.10); WHITE BLOOD COUNT 4.5 10^3/uL (4.0-10.0)
[2022-03-12] MEDS: SIMVASTATIN 40 MG TAB PO SCH (20:58)
[2022-03-13 05:10] VITALS: BP 104/46
[2022-03-13] MEDS: oxyBUTYnin 5 MG TAB PO SCH (09:47)
[2022-03-13] MEDS: DOCUSATE SODIUM 100MG CAPSULE PO SCH ×2 (09:47→20:40)
[2022-03-13] MEDS: TAMSULOSIN 0.4 MG CAP PO SCH (09:47)
[2022-03-13] MEDS: NYSTATIN 100,000 UNITS/GM TOPICAL PWD 15 GM TOP SCH ×2 (09:47→20:40)
[2022-03-13] MEDS: ASPIRIN 81MG ENTERIC TABLET PO SCH (09:47)
[2022-03-13] MEDS: MIRALAX *UNIT DOSE* 17GM PACKET PO SCH (09:47)
[2022-03-13] MEDS: buPROPion **XL** TABLET 150MG (WELLBUTRIN XL) PO SCH (09:47)
[2022-03-13] MEDS: ENOXAPARIN 40MG/0.4ML SYRINGE (J1650 PER 10MG) SC SCH (09:48)
[2022-03-13] MEDS: INSULIN LISPRO (NovoLOG) PER UNIT SC SCH ×4 (09:48→20:35)
[2022-03-13] MEDS: SIMVASTATIN 40 MG TAB PO SCH (20:40)
[2022-03-14 06:00] VITALS: BP 126/66
[2022-03-14] MEDS: MIRALAX *UNIT DOSE* 17GM PACKET PO SCH ×2 (09:00→10:34)
[2022-03-14] MEDS: NYSTATIN 100,000 UNITS/GM TOPICAL PWD 15 GM TOP SCH ×2 (09:00→20:24)
[2022-03-14] MEDS: buPROPion **XL** TABLET 150MG (WELLBUTRIN XL) PO SCH (10:34)
[2022-03-14] MEDS: TAMSULOSIN 0.4 MG CAP PO SCH (10:34)
[2022-03-14] MEDS: oxyBUTYnin 5 MG TAB PO SCH (10:34)
[2022-03-14] MEDS: DOCUSATE SODIUM 100MG CAPSULE PO SCH ×2 (10:34→20:23)
[2022-03-14] MEDS: ASPIRIN 81MG ENTERIC TABLET PO SCH (10:34)
[2022-03-14] MEDS: ENOXAPARIN 40MG/0.4ML SYRINGE (J1650 PER 10MG) SC SCH (10:35)
[2022-03-14] MEDS: INSULIN LISPRO (NovoLOG) PER UNIT SC SCH ×4 (10:36→20:23)
[2022-03-14] MEDS: SIMVASTATIN 40 MG TAB PO SCH (20:23)
[2022-03-15 06:00] VITALS: BP 129/65
[2022-03-15] MEDS: INSULIN LISPRO (NovoLOG) PER UNIT SC SCH ×4 (07:30→20:55)
[2022-03-15] MEDS: MIRALAX *UNIT DOSE* 17GM PACKET PO SCH (09:00)
[2022-03-15] MEDS: DOCUSATE SODIUM 100MG CAPSULE PO SCH ×2 (10:32→21:18)
[2022-03-15] MEDS: TAMSULOSIN 0.4 MG CAP PO SCH (10:33)
[2022-03-15] MEDS: ASPIRIN 81MG ENTERIC TABLET PO SCH (10:33)
[2022-03-15] MEDS: oxyBUTYnin 5 MG TAB PO SCH (10:33)
[2022-03-15] MEDS: buPROPion **XL** TABLET 150MG (WELLBUTRIN XL) PO SCH (10:33)
[2022-03-15] MEDS: ENOXAPARIN 40MG/0.4ML SYRINGE (J1650 PER 10MG) SC SCH (10:34)
[2022-03-15] MEDS: NYSTATIN 100,000 UNITS/GM TOPICAL PWD 15 GM TOP SCH ×2 (10:34→20:55)
[2022-03-15 15:15] LABS: BLOOD UREA NITROGEN 14 MG/DL (7-18); CALCIUM LEVEL 8.8 MG/DL (8.8-10.2); CARBON DIOXIDE LEVEL 30 MEQ/L (21-32); CHLORIDE LEVEL 103 MEQ/L (98-107); CREATININE FOR GFR 1.13 MG/DL (0.70-1.30); GLOMERULAR FILTRATION RATE > 60.0 (>42); GLUCOSE, FASTING 207 MG/DL (70-100); POTASSIUM SERUM 4.3 MEQ/L (3.5-5.1); SODIUM LEVEL 138 MEQ/L (136-145)
[2022-03-15] MEDS: SIMVASTATIN 40 MG TAB PO SCH (21:18)
[2022-03-16 06:00] VITALS: BP 122/68
[2022-03-16] MEDS: INSULIN LISPRO (NovoLOG) PER UNIT SC SCH ×4 (07:30→20:39)
[2022-03-16] MEDS: DOCUSATE SODIUM 100MG CAPSULE PO SCH ×2 (10:23→20:44)
[2022-03-16] MEDS: oxyBUTYnin 5 MG TAB PO SCH (10:23)
[2022-03-16] MEDS: ASPIRIN 81MG ENTERIC TABLET PO SCH (10:23)
[2022-03-16] MEDS: buPROPion **XL** TABLET 150MG (WELLBUTRIN XL) PO SCH (10:23)
[2022-03-16] MEDS: TAMSULOSIN 0.4 MG CAP PO SCH (10:23)
[2022-03-16] MEDS: MIRALAX *UNIT DOSE* 17GM PACKET PO SCH (10:24)
[2022-03-16] MEDS: ENOXAPARIN 40MG/0.4ML SYRINGE (J1650 PER 10MG) SC SCH (10:24)
[2022-03-16] MEDS: NYSTATIN 100,000 UNITS/GM TOPICAL PWD 15 GM TOP SCH ×2 (10:24→20:44)
[2022-03-16] MEDS: SIMVASTATIN 40 MG TAB PO SCH (20:44)
[2022-03-16] MEDS ORDERED: ACETAMINOPHEN TAB 650MG DOSE (2X325MG) PO PRN (21:00)
[2022-03-17 06:00] VITALS: BP 122/68
[2022-03-17] MEDS: INSULIN LISPRO (NovoLOG) PER UNIT SC SCH ×4 (07:30→21:00)
[2022-03-17] MEDS: DOCUSATE SODIUM 100MG CAPSULE PO SCH ×2 (08:29→21:27)
[2022-03-17] MEDS: buPROPion **XL** TABLET 150MG (WELLBUTRIN XL) PO SCH (08:29)
[2022-03-17] MEDS: MIRALAX *UNIT DOSE* 17GM PACKET PO SCH (08:29)
[2022-03-17] MEDS: TAMSULOSIN 0.4 MG CAP PO SCH (08:29)
[2022-03-17] MEDS: ASPIRIN 81MG ENTERIC TABLET PO SCH (08:29)
[2022-03-17] MEDS: ENOXAPARIN 40MG/0.4ML SYRINGE (J1650 PER 10MG) SC SCH (08:29)
[2022-03-17] MEDS: oxyBUTYnin 5 MG TAB PO SCH (08:29)
[2022-03-17] MEDS: NYSTATIN 100,000 UNITS/GM TOPICAL PWD 15 GM TOP SCH ×2 (08:30→21:27)
[2022-03-17] MEDS: SIMVASTATIN 40 MG TAB PO SCH (21:27)
[2022-03-18 06:00] VITALS: BP 124/70
[2022-03-18] MEDS: INSULIN LISPRO (NovoLOG) PER UNIT SC SCH ×4 (07:30→20:24)
[2022-03-18] MEDS: buPROPion **XL** TABLET 150MG (WELLBUTRIN XL) PO SCH (08:36)
[2022-03-18] MEDS: TAMSULOSIN 0.4 MG CAP PO SCH (08:37)
[2022-03-18] MEDS: ENOXAPARIN 40MG/0.4ML SYRINGE (J1650 PER 10MG) SC SCH (08:37)
[2022-03-18] MEDS: oxyBUTYnin 5 MG TAB PO SCH (08:37)
[2022-03-18] MEDS: ASPIRIN 81MG ENTERIC TABLET PO SCH (08:37)
[2022-03-18] MEDS: DOCUSATE SODIUM 100MG CAPSULE PO SCH ×2 (08:37→20:23)
[2022-03-18] MEDS: NYSTATIN 100,000 UNITS/GM TOPICAL PWD 15 GM TOP SCH ×2 (08:37→20:22)
[2022-03-18] MEDS: MIRALAX *UNIT DOSE* 17GM PACKET PO SCH (09:00)
[2022-03-18 20:14] VITALS: BP 115/79
[2022-03-18] MEDS: SIMVASTATIN 40 MG TAB PO SCH (20:23)
[2022-03-19 06:00] VITALS: BP_SYST 107; BP_SYST 140; BP_DIAS 48; BP_DIAS 84
[2022-03-19] MEDS: INSULIN LISPRO (NovoLOG) PER UNIT SC SCH ×4 (07:30→19:56)
[2022-03-19 08:30] VITALS: BP 124/62
[2022-03-19] MEDS: MIRALAX *UNIT DOSE* 17GM PACKET PO SCH ×2 (09:00→09:43)
[2022-03-19] MEDS: ASPIRIN 81MG ENTERIC TABLET PO SCH (09:41)
[2022-03-19] MEDS: DOCUSATE SODIUM 100MG CAPSULE PO SCH ×2 (09:41→19:57)
[2022-03-19] MEDS: oxyBUTYnin 5 MG TAB PO SCH (09:42)
[2022-03-19] MEDS: buPROPion **XL** TABLET 150MG (WELLBUTRIN XL) PO SCH (09:42)
[2022-03-19] MEDS: ENOXAPARIN 40MG/0.4ML SYRINGE (J1650 PER 10MG) SC SCH (09:43)
[2022-03-19] MEDS: TAMSULOSIN 0.4 MG CAP PO SCH (09:43)
[2022-03-19] MEDS: NYSTATIN 100,000 UNITS/GM TOPICAL PWD 15 GM TOP SCH ×2 (09:45→20:00)
[2022-03-19] MEDS: SIMVASTATIN 40 MG TAB PO SCH (20:00)
[2022-03-20 05:15] VITALS: BP 152/89
[2022-03-20] MEDS: DOCUSATE SODIUM 100MG CAPSULE PO SCH ×2 (08:58→20:00)
[2022-03-20] MEDS: oxyBUTYnin 5 MG TAB PO SCH (08:58)
[2022-03-20] MEDS: buPROPion **XL** TABLET 150MG (WELLBUTRIN XL) PO SCH (08:58)
[2022-03-20] MEDS: ASPIRIN 81MG ENTERIC TABLET PO SCH (08:58)
[2022-03-20] MEDS: TAMSULOSIN 0.4 MG CAP PO SCH (08:58)
[2022-03-20] MEDS: INSULIN LISPRO (NovoLOG) PER UNIT SC SCH ×4 (08:58→22:50)
[2022-03-20] MEDS: ENOXAPARIN 40MG/0.4ML SYRINGE (J1650 PER 10MG) SC SCH (08:59)
[2022-03-20] MEDS: NYSTATIN 100,000 UNITS/GM TOPICAL PWD 15 GM TOP SCH ×2 (08:59→20:00)
[2022-03-20] MEDS: MIRALAX *UNIT DOSE* 17GM PACKET PO SCH (08:59)
[2022-03-20] MEDS: SIMVASTATIN 40 MG TAB PO SCH (20:00)
[2022-03-21 05:50] VITALS: BP 119/68
[2022-03-21] MEDS: INSULIN LISPRO (NovoLOG) PER UNIT SC SCH ×4 (07:30→21:00)
[2022-03-21] MEDS: MIRALAX *UNIT DOSE* 17GM PACKET PO SCH (09:28)
[2022-03-21] MEDS: TAMSULOSIN 0.4 MG CAP PO SCH (09:29)
[2022-03-21] MEDS: oxyBUTYnin 5 MG TAB PO SCH (09:29)
[2022-03-21] MEDS: buPROPion **XL** TABLET 150MG (WELLBUTRIN XL) PO SCH (09:29)
[2022-03-21] MEDS: DOCUSATE SODIUM 100MG CAPSULE PO SCH ×2 (09:29→20:40)
[2022-03-21] MEDS: ASPIRIN 81MG ENTERIC TABLET PO SCH (09:29)
[2022-03-21] MEDS: ENOXAPARIN 40MG/0.4ML SYRINGE (J1650 PER 10MG) SC SCH (09:30)
[2022-03-21] MEDS: NYSTATIN 100,000 UNITS/GM TOPICAL PWD 15 GM TOP SCH ×2 (09:30→20:40)
[2022-03-21] MEDS: SIMVASTATIN 40 MG TAB PO SCH (20:40)
[2022-03-21 21:27] VITALS: BP 139/72
[2022-03-22 05:35] VITALS: BP 132/78
[2022-03-22] MEDS: INSULIN LISPRO (NovoLOG) PER UNIT SC SCH ×4 (07:30→20:44)
[2022-03-22 07:40] LABS: BLOOD UREA NITROGEN 11 MG/DL (7-18); CALCIUM LEVEL 8.8 MG/DL (8.8-10.2); CARBON DIOXIDE LEVEL 29 MEQ/L (21-32); CHLORIDE LEVEL 104 MEQ/L (98-107); CREATININE FOR GFR 1.13 MG/DL (0.70-1.30); GLOMERULAR FILTRATION RATE > 60.0 (>42); GLUCOSE, FASTING 98 MG/DL (70-100); POTASSIUM SERUM 3.9 MEQ/L (3.5-5.1); SODIUM LEVEL 139 MEQ/L (136-145)
[2022-03-22] MEDS: DOCUSATE SODIUM 100MG CAPSULE PO SCH ×2 (09:58→20:48)
[2022-03-22] MEDS: MIRALAX *UNIT DOSE* 17GM PACKET PO SCH (09:58)
[2022-03-22] MEDS: TAMSULOSIN 0.4 MG CAP PO SCH (09:58)
[2022-03-22] MEDS: ASPIRIN 81MG ENTERIC TABLET PO SCH (09:58)
[2022-03-22] MEDS: LISINOPRIL *2.5 MG* TAB PO SCH (09:58)
[2022-03-22] MEDS: oxyBUTYnin 5 MG TAB PO SCH (09:58)
[2022-03-22] MEDS: buPROPion **XL** TABLET 150MG (WELLBUTRIN XL) PO SCH (09:59)
[2022-03-22] MEDS: NYSTATIN 100,000 UNITS/GM TOPICAL PWD 15 GM TOP SCH ×2 (09:59→20:48)
[2022-03-22] MEDS: ENOXAPARIN 40MG/0.4ML SYRINGE (J1650 PER 10MG) SC SCH (09:59)
[2022-03-22] MEDS: SIMVASTATIN 40 MG TAB PO SCH (20:48)
[2022-03-23 06:00] VITALS: BP 117/61
[2022-03-23 07:13] LABS: BLOOD UREA NITROGEN 15 MG/DL (7-18); CALCIUM LEVEL 8.5 MG/DL (8.8-10.2); CARBON DIOXIDE LEVEL 29 MEQ/L (21-32); CHLORIDE LEVEL 106 MEQ/L (98-107); CREATININE FOR GFR 1.18 MG/DL (0.70-1.30); GLOMERULAR FILTRATION RATE > 60.0 (>42); GLUCOSE, FASTING 155 MG/DL (70-100); SODIUM LEVEL 141 MEQ/L (136-145)
[2022-03-23] MEDS: INSULIN LISPRO (NovoLOG) PER UNIT SC SCH ×4 (07:30→20:37)
[2022-03-23] MEDS: MIRALAX *UNIT DOSE* 17GM PACKET PO SCH (09:07)
[2022-03-23] MEDS: ENOXAPARIN 40MG/0.4ML SYRINGE (J1650 PER 10MG) SC SCH (09:07)
[2022-03-23] MEDS: TAMSULOSIN 0.4 MG CAP PO SCH (09:07)
[2022-03-23] MEDS: oxyBUTYnin 5 MG TAB PO SCH (09:07)
[2022-03-23] MEDS: ASPIRIN 81MG ENTERIC TABLET PO SCH (09:07)
[2022-03-23] MEDS: DOCUSATE SODIUM 100MG CAPSULE PO SCH ×2 (09:07→20:40)
[2022-03-23] MEDS: buPROPion **XL** TABLET 150MG (WELLBUTRIN XL) PO SCH (09:07)
[2022-03-23] MEDS: LISINOPRIL *2.5 MG* TAB PO SCH (09:07)
[2022-03-23] MEDS: NYSTATIN 100,000 UNITS/GM TOPICAL PWD 15 GM TOP SCH ×2 (09:08→20:40)
[2022-03-23] MEDS: SIMVASTATIN 40 MG TAB PO SCH (20:40)
[2022-03-24 06:36] VITALS: BP 126/65
[2022-03-24] MEDS: INSULIN LISPRO (NovoLOG) PER UNIT SC SCH ×4 (07:30→21:00)
[2022-03-24 07:31] LABS: BLOOD UREA NITROGEN 16 MG/DL (7-18); CALCIUM LEVEL 8.8 MG/DL (8.8-10.2); CARBON DIOXIDE LEVEL 29 MEQ/L (21-32); CHLORIDE LEVEL 106 MEQ/L (98-107); CREATININE FOR GFR 1.15 MG/DL (0.70-1.30); GLOMERULAR FILTRATION RATE > 60.0 (>42); GLUCOSE, FASTING 115 MG/DL (70-100); POTASSIUM SERUM 3.9 MEQ/L (3.5-5.1); SODIUM LEVEL 143 MEQ/L (136-145)
[2022-03-24] MEDS: MIRALAX *UNIT DOSE* 17GM PACKET PO SCH (09:00)
[2022-03-24] MEDS: oxyBUTYnin 5 MG TAB PO SCH (10:36)
[2022-03-24] MEDS: buPROPion **XL** TABLET 150MG (WELLBUTRIN XL) PO SCH (10:37)
[2022-03-24] MEDS: TAMSULOSIN 0.4 MG CAP PO SCH (10:37)
[2022-03-24] MEDS: ASPIRIN 81MG ENTERIC TABLET PO SCH (10:37)
[2022-03-24] MEDS: DOCUSATE SODIUM 100MG CAPSULE PO SCH ×2 (10:37→22:54)
[2022-03-24] MEDS: LISINOPRIL *2.5 MG* TAB PO SCH (10:38)
[2022-03-24] MEDS: ENOXAPARIN 40MG/0.4ML SYRINGE (J1650 PER 10MG) SC SCH (10:38)
[2022-03-24] MEDS: NYSTATIN 100,000 UNITS/GM TOPICAL PWD 15 GM TOP SCH ×2 (10:39→22:55)
[2022-03-24] MEDS: SIMVASTATIN 40 MG TAB PO SCH (22:54)
[2022-03-25 05:42] VITALS: BP 100/42
[2022-03-25 06:22] LABS: BLOOD UREA NITROGEN 16 MG/DL (7-18); CALCIUM LEVEL 8.9 MG/DL (8.8-10.2); CARBON DIOXIDE LEVEL 30 MEQ/L (21-32); CHLORIDE LEVEL 105 MEQ/L (98-107); GLOMERULAR FILTRATION RATE > 60.0 (>42); GLUCOSE, FASTING 129 MG/DL (70-100); POTASSIUM SERUM 3.9 MEQ/L (3.5-5.1); SODIUM LEVEL 139 MEQ/L (136-145)
[2022-03-25] MEDS: INSULIN LISPRO (NovoLOG) PER UNIT SC SCH ×4 (07:30→20:37)
[2022-03-25] MEDS: TAMSULOSIN 0.4 MG CAP PO SCH (08:59)
[2022-03-25] MEDS: DOCUSATE SODIUM 100MG CAPSULE PO SCH ×2 (09:00→20:36)
[2022-03-25] MEDS: LISINOPRIL *2.5 MG* TAB PO SCH (09:00)
[2022-03-25] MEDS: MIRALAX *UNIT DOSE* 17GM PACKET PO SCH (09:00)
[2022-03-25] MEDS: buPROPion **XL** TABLET 150MG (WELLBUTRIN XL) PO SCH (09:01)
[2022-03-25] MEDS: oxyBUTYnin 5 MG TAB PO SCH (09:01)
[2022-03-25] MEDS: ASPIRIN 81MG ENTERIC TABLET PO SCH (09:01)
[2022-03-25] MEDS: NYSTATIN 100,000 UNITS/GM TOPICAL PWD 15 GM TOP SCH ×2 (09:02→20:39)
[2022-03-25 09:18] VITALS: BP 124/78
[2022-03-25] MEDS: ENOXAPARIN 40MG/0.4ML SYRINGE (J1650 PER 10MG) SC SCH (10:33)
[2022-03-25] MEDS: SIMVASTATIN 40 MG TAB PO SCH (20:36)
[2022-03-26 06:00] VITALS: BP 137/66
[2022-03-26 06:21] LABS: BLOOD UREA NITROGEN 14 MG/DL (7-18); CALCIUM LEVEL 8.4 MG/DL (8.8-10.2); CARBON DIOXIDE LEVEL 29 MEQ/L (21-32); CHLORIDE LEVEL 106 MEQ/L (98-107); CREATININE FOR GFR 1.04 MG/DL (0.70-1.30); GLOMERULAR FILTRATION RATE > 60.0 (>42); GLUCOSE, FASTING 118 MG/DL (70-100); POTASSIUM SERUM 3.9 MEQ/L (3.5-5.1); SODIUM LEVEL 140 MEQ/L (136-145)
[2022-03-26] MEDS: MIRALAX *UNIT DOSE* 17GM PACKET PO SCH (09:00)
[2022-03-26] MEDS: NYSTATIN 100,000 UNITS/GM TOPICAL PWD 15 GM TOP SCH ×2 (09:00→21:00)
[2022-03-26] MEDS: buPROPion **XL** TABLET 150MG (WELLBUTRIN XL) PO SCH (09:34)
[2022-03-26] MEDS: TAMSULOSIN 0.4 MG CAP PO SCH (09:34)
[2022-03-26] MEDS: ASPIRIN 81MG ENTERIC TABLET PO SCH (09:34)
[2022-03-26] MEDS: INSULIN LISPRO (NovoLOG) PER UNIT SC SCH ×4 (09:34→21:00)
[2022-03-26] MEDS: ENOXAPARIN 40MG/0.4ML SYRINGE (J1650 PER 10MG) SC SCH (09:35)
[2022-03-26] MEDS: oxyBUTYnin 5 MG TAB PO SCH (09:36)
[2022-03-26] MEDS: DOCUSATE SODIUM 100MG CAPSULE PO SCH ×2 (09:36→20:08)
[2022-03-26] MEDS: LISINOPRIL *2.5 MG* TAB PO SCH (09:39)
[2022-03-26] MEDS: SIMVASTATIN 40 MG TAB PO SCH (20:08)
[2022-03-27 06:00] VITALS: BP 122/64
[2022-03-27 06:36] LABS: BLOOD UREA NITROGEN 14 MG/DL (7-18); CALCIUM LEVEL 8.5 MG/DL (8.8-10.2); CARBON DIOXIDE LEVEL 29 MEQ/L (21-32); CHLORIDE LEVEL 107 MEQ/L (98-107); CREATININE FOR GFR 1.08 MG/DL (0.70-1.30); GLOMERULAR FILTRATION RATE > 60.0 (>42); GLUCOSE, FASTING 102 MG/DL (70-100); SODIUM LEVEL 140 MEQ/L (136-145)
[2022-03-27] MEDS: MIRALAX *UNIT DOSE* 17GM PACKET PO SCH (09:00)
[2022-03-27] MEDS: NYSTATIN 100,000 UNITS/GM TOPICAL PWD 15 GM TOP SCH (09:00)
[2022-03-27] MEDS ORDERED: ACET1TAB55 PO ×2 (09:38→11:36)
[2022-03-27] MEDS ORDERED: MIRA1POW3 PO ×2 (09:38→11:36)
[2022-03-27] MEDS: INSULIN LISPRO (NovoLOG) PER UNIT SC SCH ×2 (10:15→12:00)
[2022-03-27] MEDS: ENOXAPARIN 40MG/0.4ML SYRINGE (J1650 PER 10MG) SC SCH (10:15)
[2022-03-27 10:16] VITALS: BP 122/64
[2022-03-27] MEDS: DOCUSATE SODIUM 100MG CAPSULE PO SCH (10:16)
[2022-03-27] MEDS: TAMSULOSIN 0.4 MG CAP PO SCH (10:16)
[2022-03-27] MEDS: oxyBUTYnin 5 MG TAB PO SCH (10:16)
[2022-03-27] MEDS: LISINOPRIL *2.5 MG* TAB PO SCH (10:16)
[2022-03-27] MEDS: ASPIRIN 81MG ENTERIC TABLET PO SCH (10:16)
[2022-03-27] MEDS: buPROPion **XL** TABLET 150MG (WELLBUTRIN XL) PO SCH (10:16)
== END 2022-03-27 13:26 | disposition home health service (06) | DRG 57 ==
LOC: M ED 22:13 → M ED INP 03-06 01:55 → ENRESERV 03-06 12:46 → M MSPAV 03-06 13:25
PROVIDERS: ADMIT Internal Medicine; ATTEND Student in an Organized Health Care Education/Training Program
DX: I69.351 Hemiplegia and hemiparesis following cerebral infarction affecting right dominant side (principal); N17.9 Acute kidney failure, unspecified; N39.0 Urinary tract infection, site not specified; R13.14 Dysphagia, pharyngoesophageal phase; K22.70 Barrett's esophagus without dysplasia; E11.9 Type 2 diabetes mellitus without complications; K21.9 Gastro-esophageal reflux disease without esophagitis; F39 Unspecified mood [affective] disorder; D69.6 Thrombocytopenia, unspecified; N40.0 Benign prostatic hyperplasia without lower urinary tract symptoms; E78.5 Hyperlipidemia, unspecified; E83.42 Hypomagnesemia; B95.8 Unspecified staphylococcus as the cause of diseases classified elsewhere; R53.1 Weakness; Z66 Do not resuscitate; Z79.82 Long term (current) use of aspirin; Z79.84 Long term (current) use of oral hypoglycemic drugs; Z79.899 Other long term (current) drug therapy; Z88.0 Allergy status to penicillin; Z88.5 Allergy status to narcotic agent; Z88.6 Allergy status to analgesic agent; Z85.46 Personal history of malignant neoplasm of prostate; Z90.49 Acquired absence of other specified parts of digestive tract; Z86.16 Personal history of COVID-19

== ENCOUNTER → 2022-05-29 | Outpatient (REF) | payer MEDICARE ==
[~2022-05-29] MED LIST changes: +ACET1TAB55 PO; +LISI2.5T9 PO; +MIRA1POW3 PO
[2022-05-29 17:02] LABS: PERCENT SATURATION 16.8 % (19.7-50.0)
[2022-05-29 17:03] LABS: FERRITIN 57.7 NG/ML (10.5-307.3)
== END ==
LOC: M LAB REF 16:07
PROVIDERS: ATTEND Internal Medicine
DX: D64.9 Anemia, unspecified (principal)

== ENCOUNTER → 2022-06-15 | Outpatient (REF) | payer MEDICARE ==
[2022-06-17 18:12] LABS: FREE KAPPA LIGHT CHAINS SERUM 56.4 mg/L (3.3-19.4); FREE LAMBDA LIGHT CHAINS SERUM 34.8 mg/L (5.7-26.3); KAPPA/LAMBDA RATIO SERUM 1.62 (0.26-1.65)
[2022-06-17 20:07] LABS: ALBUMIN 3.8 g/dL (2.9-4.4); ALPHA-1-GLOBULINS 0.3 g/dL (0.0-0.4); BETA-1-GLOBULINS 1.2 g/dL (0.7-1.3); GAMMA GLOBULINS 1.4 g/dL (0.4-1.8); TOTAL PROTEIN ELECTROPHORESIS 7.6 g/dL (6.0-8.5)
== END ==
LOC: M LAB REF 15:40
PROVIDERS: ATTEND Internal Medicine
DX: I12.9 Hypertensive chronic kidney disease with stage 1 through stage 4 chronic kidney disease, or unspecified chronic kidney disease (principal); N18.31 Chronic kidney disease, stage 3a

== ENCOUNTER → 2022-06-22 | Outpatient (CLI) | payer MEDICARE | LOC: M PLAIMG 14:25 | PROVIDERS: ATTEND Physician Assistant Medical | DX: L03.113 Cellulitis of right upper limb (principal) ==

== ENCOUNTER → 2022-12-10 | Outpatient (CLI) | payer MEDICARE | LOC: M RAD 13:38 | PROVIDERS: ATTEND Surgery | DX: I70.243 Atherosclerosis of native arteries of left leg with ulceration of ankle (principal); L97.929 Non-pressure chronic ulcer of unspecified part of left lower leg with unspecified severity ==

== ENCOUNTER → 2023-08-04 | Outpatient (CLI) | payer MEDICARE ==
[~2023-08-04] MED LIST changes: +GLIP5TAB17 PO; -GLIP5TAB8 PO; -MIRA1POW3 PO; +MIRA33506 PO; -OXYB5TAB10 PO; +OXYB5TAB14 PO
== END ==
LOC: M WUC 14:12
PROVIDERS: ATTEND Internal Medicine
DX: E11.621 Type 2 diabetes mellitus with foot ulcer (principal)

== ENCOUNTER → 2023-08-10 | Outpatient (REF) | payer MEDICARE | LOC: M LAB REF 12:34 | PROVIDERS: ATTEND Internal Medicine | DX: E11.621 Type 2 diabetes mellitus with foot ulcer (principal) ==

== ENCOUNTER → 2023-08-30 | Outpatient (REF) | payer MEDICARE ==
[2023-08-30 18:39] LABS: CREATININE FOR GFR 1.26 MG/DL (0.70-1.30); GLOMERULAR FILTRATION RATE 58.8 (>42)
== END ==
LOC: M LABWUC 16:49
PROVIDERS: ATTEND Surgery
DX: R68.89 Other general symptoms and signs (principal)

== ENCOUNTER → 2023-09-13 | Outpatient (CLI) | payer MEDICARE ==
[~2023-09-13] MED LIST changes: +BUPR-597 PO; -BUPR300T92 PO; +ISOVUE-370 76% 100ML VIAL As Ordered ONE
== END ==
LOC: M RAD 09:45
PROVIDERS: ATTEND Surgery
DX: R68.89 Other general symptoms and signs (principal)
CPT/HCPCS: 73706; Q9967

== ENCOUNTER 2023-09-28 14:29 | Emergency (ER) | payer MEDICARE ==
[~2023-09-28] VITALS: Ht 175.3 cm; Wt 83.6 kg
[~2023-09-28 14:29] MED LIST changes: -ISOVUE-370 76% 100ML VIAL As Ordered ONE
[2023-09-28] MEDS ORDERED: TRAD5TAB PO (14:47)
[2023-09-28] MEDS ORDERED: ROSU10TA61 PO (14:47)
[2023-09-28] MEDS ORDERED: GLIP10TA18 PO (14:47)
[2023-09-28 15:57] LABS: BASO # 0.1 10^3/uL (0.0-0.2); BASO % 0.6 % (0.0-1.0); EOS # 0.2 10^3/uL (0.0-0.5); EOS % 1.8 % (0.0-3.0); HEMATOCRIT 38.7 % (42.0-52.0); HEMOGLOBIN 13.2 g/dl (13.5-17.5); LYMPH # 1.2 10^3/uL (1.5-5.0); LYMPH % 10.6 % (24.0-44.0); MEAN CORPUSCULAR HEMOGLOBIN 29.3 pg (27.0-33.0); MEAN CORPUSCULAR HGB CONC 34.1 g/dl (32.0-36.5); MEAN CORPUSCULAR VOLUME 85.8 fl (80.0-96.0); MONO # 0.9 10^3/uL (0.0-0.8); MONO % 7.4 % (2.0-8.0); NEUTROPHILS % 79.1 % (36.0-66.0); PLATELET COUNT, AUTOMATED 189 10^3/uL (150-450); RED BLOOD COUNT 4.51 10^6/uL (4.30-6.10); WHITE BLOOD COUNT 11.4 10^3/uL (4.0-10.0)
[2023-09-28 16:18] LABS: BLOOD UREA NITROGEN 19 MG/DL (9-23); CARBON DIOXIDE LEVEL 27 MMOL/L (20-31); CHLORIDE LEVEL 102 MMOL/L (98-107); CREATININE FOR GFR 1.15 MG/DL (0.70-1.30); GLOMERULAR FILTRATION RATE > 60.0 (>42); GLUCOSE, FASTING 132 MG/DL (74-106); POTASSIUM SERUM 4.6 MMOL/L (3.5-5.1); SODIUM LEVEL 138 MMOL/L (136-145)
[2023-09-28] MEDS ORDERED: VANCOMYCIN HCL 1,750 MG in NS 250 ML IV ONE (16:40)
[2023-09-28] MEDS: cefTRIAXone SOD 2 GM in D5W MINI-BAG PLUS 50 ML IV ONE (17:03)
[2023-09-28] MEDS: VANCOMYCIN HCL 1,000 MG, VIAL MATE ADAPTER 1 EACH in D5W 250 ML IV ONE (17:44)
[2023-09-28] MEDS: VANCOMYCIN HCL 750 MG, VIAL MATE ADAPTER 1 EACH in D5W 250 ML IV ONE (21:37)
[2023-09-29] MEDS: ENOXAPARIN 80MG/0.8ML SYRINGE (J1650 PER 10MG) SC ONE (06:20)
[2023-09-29] MEDS ORDERED: VANCOMYCIN HCL 1,000 MG, VIAL MATE ADAPTER 1 EACH in D5W 250 ML IV SCH (07:55)
[2023-09-29] MEDS ORDERED: GLUCAGON INJ 1MG VIAL SC PRN (08:00)
[2023-09-29] MEDS ORDERED: GLUCOSE 4 GM CHEW PO PRN (08:00)
[2023-09-29] MEDS ORDERED: DEXTROSE 50% 50ML SYRINGE IV PRN (08:00)
[2023-09-29] MEDS ORDERED: HOME MED LIST COMPLETE! XX SCH (08:25)
[2023-09-29] MEDS: ASPIRIN 81MG ENTERIC TABLET PO SCH (11:07)
[2023-09-29] MEDS: buPROPion **XL** TABLET 150MG (WELLBUTRIN XL) PO SCH (11:10)
[2023-09-29] MEDS: INSULIN LISPRO (NovoLOG) PER UNIT SC SCH (12:36)
[2023-09-29 12:55] LABS: VANCOMYCIN RANDOM 5.9 UG/ML
[2023-09-29 12:56] LABS: BLOOD UREA NITROGEN 16 MG/DL (9-23); CALCIUM LEVEL 8.9 MG/DL (8.3-10.6); CARBON DIOXIDE LEVEL 28 MMOL/L (20-31); CHLORIDE LEVEL 98 MMOL/L (98-107); CREATININE FOR GFR 1.01 MG/DL (0.70-1.30); GLOMERULAR FILTRATION RATE > 60.0 (>42); GLUCOSE, FASTING 180 MG/DL (74-106); POTASSIUM SERUM 4.1 MMOL/L (3.5-5.1); SODIUM LEVEL 135 MMOL/L (136-145)
[2023-09-29 13:17] VITALS: O2SAT 97
[2023-09-29] MEDS: VANCOMYCIN HCL 1,000 MG, VIAL MATE ADAPTER 1 EACH in D5W 250 ML IV SCH (13:30)
[2023-09-29 13:44] VITALS: TEMP 97.6
[2023-09-29] MEDS: VANCOMYCIN HCL 500 MG in D5W MINI-BAG PLUS 100 ML IV ONE (14:00)
[2023-09-29 16:25] VITALS: BP 178/93
[2023-09-29] MEDS ORDERED: cefTRIAXone SOD 2 GM in D5W MINI-BAG PLUS 50 ML IV SCH (17:00)
[2023-09-29] MEDS ORDERED: INSULIN LISPRO (NovoLOG) PER UNIT SC SCH (21:00)
== END 2023-09-29 16:00 | disposition short-term general hospital (02) ==
LOC: M ED 14:29 → CANBEDREQ 18:39 → M ED 09-29 08:08
DX: I73.9 Peripheral vascular disease, unspecified (principal); M86.171 Other acute osteomyelitis, right ankle and foot; E11.51 Type 2 diabetes mellitus with diabetic peripheral angiopathy without gangrene; I10 Essential (primary) hypertension; E78.5 Hyperlipidemia, unspecified; K21.9 Gastro-esophageal reflux disease without esophagitis; Z88.0 Allergy status to penicillin; Z88.8 Allergy status to other drugs, medicaments and biological substances; Z79.1 Long term (current) use of non-steroidal anti-inflammatories (NSAID); Z79.84 Long term (current) use of oral hypoglycemic drugs; Z79.899 Other long term (current) drug therapy
CPT/HCPCS: 71045; 73630; 73720; 80048; 80202; 83605; 85025; 85652; 86140; 87040; 93005; 96365; 96366; 96372; 99285; A9576; J0696; J1650; J1815; J3370

== ENCOUNTER → 2023-10-20 | Outpatient (REF) | payer MEDICARE ==
[~2023-10-20] MED LIST changes: +GLIP10TA18 PO; +ROSU10TA61 PO; +TRAD5TAB PO
== END ==
PROVIDERS: ATTEND Internal Medicine
DX: T87.43 Infection of amputation stump, right lower extremity (principal); M77.51 Other enthesopathy of right foot and ankle; I77.89 Other specified disorders of arteries and arterioles

== ENCOUNTER → 2023-10-20 | Outpatient (REF) ==
[2023-10-20 11:07] LABS: HEMATOCRIT 35.9 % (42.0-52.0); HEMOGLOBIN 11.7 g/dl (13.5-17.5); MEAN CORPUSCULAR HEMOGLOBIN 28.7 pg (27.0-33.0); MEAN CORPUSCULAR HGB CONC 32.6 g/dl (32.0-36.5); MEAN CORPUSCULAR VOLUME 88.2 fl (80.0-96.0); PLATELET COUNT, AUTOMATED 202 10^3/uL (150-450); RED BLOOD COUNT 4.07 10^6/uL (4.30-6.10); WHITE BLOOD COUNT 10.2 10^3/uL (4.0-10.0)
[2023-10-20 11:27] LABS: CALCIUM LEVEL 9.2 MG/DL (8.3-10.6); CREATININE FOR GFR 1.37 MG/DL (0.70-1.30); GLOMERULAR FILTRATION RATE 53.4 (>42); POTASSIUM SERUM 4.2 MMOL/L (3.5-5.1)
[2023-10-20 15:55] LABS: C REACTIVE PROTEIN QUANTITATIV 5.3 MG/DL (<1.0)
[2023-10-20 16:10] LABS: ERYTHROCYTE SEDIMENTATION RATE 76 mm/hr (0-20)
== END ==
PROVIDERS: ATTEND Physician Assistant
DX: L03.031 Cellulitis of right toe (principal)

== ENCOUNTER → 2023-10-25 | Outpatient (REF) ==
[2023-10-25 12:28] LABS: HEMATOCRIT 34.7 % (42.0-52.0); HEMOGLOBIN 11.4 g/dl (13.5-17.5); MEAN CORPUSCULAR HEMOGLOBIN 28.9 pg (27.0-33.0); MEAN CORPUSCULAR HGB CONC 32.9 g/dl (32.0-36.5); MEAN CORPUSCULAR VOLUME 88.1 fl (80.0-96.0); PLATELET COUNT, AUTOMATED 184 10^3/uL (150-450); RED BLOOD COUNT 3.94 10^6/uL (4.30-6.10); WHITE BLOOD COUNT 8.9 10^3/uL (4.0-10.0)
[2023-10-25 12:35] LABS: ERYTHROCYTE SEDIMENTATION RATE 84 mm/hr (0-20)
[2023-10-25 13:44] LABS: BLOOD UREA NITROGEN 21 MG/DL (9-23); CALCIUM LEVEL 8.7 MG/DL (8.3-10.6); CARBON DIOXIDE LEVEL 30 MMOL/L (20-31); CHLORIDE LEVEL 101 MMOL/L (98-107); GLOMERULAR FILTRATION RATE > 60.0 (>42); GLUCOSE, FASTING 37 MG/DL (74-106); POTASSIUM SERUM 4.6 MMOL/L (3.5-5.1); SODIUM LEVEL 139 MMOL/L (136-145)
== END ==
PROVIDERS: ATTEND Physician Assistant
DX: L03.115 Cellulitis of right lower limb (principal)

== ENCOUNTER → 2023-10-27 | Outpatient (REF) | PROVIDERS: ATTEND Physician Assistant | DX: Z47.81 Encounter for orthopedic aftercare following surgical amputation (principal); Z89.411 Acquired absence of right great toe; Z53.8 Procedure and treatment not carried out for other reasons ==

== ENCOUNTER → 2023-10-29 | Outpatient (REF) ==
[2023-10-29 11:35] LABS: HEMATOCRIT 34.4 % (42.0-52.0); HEMOGLOBIN 11.2 g/dl (13.5-17.5); MEAN CORPUSCULAR HEMOGLOBIN 28.5 pg (27.0-33.0); MEAN CORPUSCULAR HGB CONC 32.6 g/dl (32.0-36.5); MEAN CORPUSCULAR VOLUME 87.5 fl (80.0-96.0); PLATELET COUNT, AUTOMATED 118 10^3/uL (150-450); RED BLOOD COUNT 3.93 10^6/uL (4.30-6.10); WHITE BLOOD COUNT 7.4 10^3/uL (4.0-10.0)
[2023-10-29 12:01] LABS: BLOOD UREA NITROGEN 19 MG/DL (9-23); CALCIUM LEVEL 8.5 MG/DL (8.3-10.6); CARBON DIOXIDE LEVEL 31 MMOL/L (20-31); CHLORIDE LEVEL 97 MMOL/L (98-107); CREATININE FOR GFR 0.99 MG/DL (0.70-1.30); GLOMERULAR FILTRATION RATE > 60.0 (>42); GLUCOSE, FASTING 182 MG/DL (74-106); POTASSIUM SERUM 4.2 MMOL/L (3.5-5.1); SODIUM LEVEL 134 MMOL/L (136-145)
== END ==
PROVIDERS: ATTEND Physician Assistant
DX: Z47.81 Encounter for orthopedic aftercare following surgical amputation (principal); Z89.411 Acquired absence of right great toe

== ENCOUNTER → 2023-11-10 | Outpatient (REF) ==
[2023-11-10 19:22] LABS: HEMATOCRIT 35.4 % (42.0-52.0); HEMOGLOBIN 11.2 g/dl (13.5-17.5); MEAN CORPUSCULAR HEMOGLOBIN 28.5 pg (27.0-33.0); MEAN CORPUSCULAR HGB CONC 31.6 g/dl (32.0-36.5); MEAN CORPUSCULAR VOLUME 90.1 fl (80.0-96.0); PLATELET COUNT, AUTOMATED 157 10^3/uL (150-450); RED BLOOD COUNT 3.93 10^6/uL (4.30-6.10); WHITE BLOOD COUNT 9.4 10^3/uL (4.0-10.0)
[2023-11-10 19:48] LABS: BLOOD UREA NITROGEN 18 MG/DL (9-23); CALCIUM LEVEL 8.7 MG/DL (8.3-10.6); CARBON DIOXIDE LEVEL 34 MMOL/L (20-31); CHLORIDE LEVEL 101 MMOL/L (98-107); CREATININE FOR GFR 1.03 MG/DL (0.70-1.30); GLOMERULAR FILTRATION RATE > 60.0 (>42); GLUCOSE, FASTING 127 MG/DL (74-106); POTASSIUM SERUM 4.2 MMOL/L (3.5-5.1); SODIUM LEVEL 139 MMOL/L (136-145)
== END ==
PROVIDERS: ATTEND Physician Assistant
DX: R42 Dizziness and giddiness (principal)

== ENCOUNTER → 2023-11-11 | Outpatient (REF) ==
[~2023-11-11] MED LIST changes: +MIRA3350 PO; +SENN-52 PO
[2023-11-11 17:57] LABS: HEMATOCRIT 35.5 % (42.0-52.0); HEMOGLOBIN 11.5 g/dl (13.5-17.5); MEAN CORPUSCULAR HEMOGLOBIN 28.8 pg (27.0-33.0); MEAN CORPUSCULAR HGB CONC 32.4 g/dl (32.0-36.5); MEAN CORPUSCULAR VOLUME 88.8 fl (80.0-96.0); PLATELET COUNT, AUTOMATED 179 10^3/uL (150-450); WHITE BLOOD COUNT 9.5 10^3/uL (4.0-10.0)
[2023-11-11 18:33] LABS: BLOOD UREA NITROGEN 19 MG/DL (9-23); CALCIUM LEVEL 8.9 MG/DL (8.3-10.6); CARBON DIOXIDE LEVEL 31 MMOL/L (20-31); CHLORIDE LEVEL 102 MMOL/L (98-107); CREATININE FOR GFR 1.22 MG/DL (0.70-1.30); GLOMERULAR FILTRATION RATE > 60.0 (>42); GLUCOSE, FASTING 100 MG/DL (74-106); SODIUM LEVEL 140 MMOL/L (136-145)
== END ==
PROVIDERS: ATTEND Physician Assistant
DX: R53.1 Weakness (principal)

== ENCOUNTER 2023-11-12 12:13 | Emergency (ER) | payer MEDICARE ==
[~2023-11-12] VITALS: Ht 180.3 cm; Wt 81.8 kg
[~2023-11-12 12:13] MED LIST changes: -MIRA3350 PO; -SENN-52 PO
[2023-11-12] MEDS: NS 1,000 ML IV ONE (13:43)
[2023-11-12 13:46] LABS: VENOUS HCO3 30.6 MMOL/L (23.0-27.0); VENOUS O2 SATURATION 55.4 % (60.0-80.0); VENOUS PARTIAL PRESSURE CO2 54.7 mmHg (38.0-50.0); VENOUS PH 7.365 UNITS (7.330-7.430); VENOUS STANDARD HCO3 27.1 MMOL/L; VENOUS TOTAL CO2 32.2 MMOL/L (24.0-28.0)
[2023-11-12 13:48] LABS: BASO % 0.4 % (0.0-1.0); EOS # 0.3 10^3/uL (0.0-0.5); EOS % 2.7 % (0.0-3.0); HEMOGLOBIN 11.6 g/dl (13.5-17.5); LYMPH # 0.9 10^3/uL (1.5-5.0); LYMPH % 9.6 % (24.0-44.0); MEAN CORPUSCULAR HEMOGLOBIN 28.5 pg (27.0-33.0); MEAN CORPUSCULAR HGB CONC 32.2 g/dl (32.0-36.5); MEAN CORPUSCULAR VOLUME 88.5 fl (80.0-96.0); MONO # 0.6 10^3/uL (0.0-0.8); MONO % 6.4 % (2.0-8.0); NEUTROPHILS # 7.5 10^3/uL (1.5-8.5); NEUTROPHILS % 80.7 % (36.0-66.0); PLATELET COUNT, AUTOMATED 177 10^3/uL (150-450); RED BLOOD COUNT 4.07 10^6/uL (4.30-6.10); WHITE BLOOD COUNT 9.3 10^3/uL (4.0-10.0)
[2023-11-12 13:52] LABS: ERYTHROCYTE SEDIMENTATION RATE 56 mm/hr (0-20)
[2023-11-12] MEDS: GASTROGRAFIN SOLUTION 30ML PO SCH (13:53)
[2023-11-12 14:01] LABS: INR 1.14; PARTIAL THROMBOPLASTIN TIME 26.7 SECONDS (24.8-34.2); PROTHROMBIN TIME 14.3 SECONDS (12.5-14.5)
[2023-11-12 14:17] LABS: CK-MB VALUE MASS 1.3 NG/ML (<3.6); LIPASE 20 U/L (12-53)
[2023-11-12 14:20] LABS: ALBUMIN 2.8 G/DL (3.2-5.2); ALKALINE PHOSPHATASE 137 U/L (46-116); ALT/SGPT 38 U/L (7.0-40); AST/SGOT 52 U/L (<34); BILIRUBIN,DIRECT 0.3 MG/DL (<0.4); BILIRUBIN,TOTAL 0.7 MG/DL (0.3-1.2); BLOOD UREA NITROGEN 17 MG/DL (9-23); CALCIUM LEVEL 8.8 MG/DL (8.3-10.6); CARBON DIOXIDE LEVEL 33 MMOL/L (20-31); CHLORIDE LEVEL 102 MMOL/L (98-107); CREATININE FOR GFR 0.91 MG/DL (0.70-1.30); GLOMERULAR FILTRATION RATE > 60.0 (>42); GLUCOSE, FASTING 126 MG/DL (74-106); POTASSIUM SERUM 4.9 MMOL/L (3.5-5.1); SODIUM LEVEL 141 MMOL/L (136-145); TOTAL PROTEIN 6.9 G/DL (5.7-8.2)
[2023-11-12 14:21] LABS: FREE T4 0.99 NG/DL (0.89-1.76); THYROID STIMULATING HORMONE 0.618 uIU/ML (0.55-4.78)
[2023-11-12 14:44] LABS: CPK CREATINE PHOSPHOKINASE 296 U/L (46-171); MB/CK RELATIVE INDEX 0.43 (< OR =4)
[2023-11-12 15:18] LABS: MB/CK RELATIVE INDEX 1.56 (< OR =4)
[2023-11-12] MEDS: CEFTAROLINE FOSAMIL 600 MG in D5W MINI-BAG PLUS 50 ML IV ONE (17:40)
[2023-11-12] MEDS ORDERED: MIRA3350 PO (18:57)
[2023-11-12] MEDS ORDERED: SENN-52 PO (18:57)
[2023-11-12] MEDS: DALBAVANCIN 1,500 MG in D5W 250 ML IV ONE (19:24)
[2023-11-12 19:45] VITALS: BP 154/72; TEMP 98.2; O2SAT 98
== END 2023-11-12 20:17 | disposition home or self-care (01) ==
LOC: EDBD 12:13 → M ED 12:13 → EDSEX 12:13 → M ED 20:17
DX: M86.9 Osteomyelitis, unspecified (principal); R11.2 Nausea with vomiting, unspecified; E11.9 Type 2 diabetes mellitus without complications; I25.2 Old myocardial infarction; Z88.0 Allergy status to penicillin; Z88.5 Allergy status to narcotic agent; Z88.8 Allergy status to other drugs, medicaments and biological substances; Z79.1 Long term (current) use of non-steroidal anti-inflammatories (NSAID); Z79.84 Long term (current) use of oral hypoglycemic drugs; Z79.899 Other long term (current) drug therapy
CPT/HCPCS: 70450; 73630; 74176; 80048; 80076; 82140; 82550; 82553; 82803; 83605; 83690; 84439; 84443; 84484; 85025; 85610; 85652; 85730; 86140; 87040; 87070; 87077; 87186; 87205; 93005; 93041; 96365; 96374; 99285; J0712; J0875; Q9963

== ENCOUNTER → 2023-11-12 | Outpatient (REF) ==
[2023-11-12 09:46] LABS: HEMATOCRIT 32.9 % (42.0-52.0); HEMOGLOBIN 10.7 g/dl (13.5-17.5); MEAN CORPUSCULAR HEMOGLOBIN 28.8 pg (27.0-33.0); MEAN CORPUSCULAR HGB CONC 32.5 g/dl (32.0-36.5); MEAN CORPUSCULAR VOLUME 88.4 fl (80.0-96.0); PLATELET COUNT, AUTOMATED 169 10^3/uL (150-450); RED BLOOD COUNT 3.72 10^6/uL (4.30-6.10); WHITE BLOOD COUNT 8.5 10^3/uL (4.0-10.0)
[2023-11-12 10:12] LABS: BLOOD UREA NITROGEN 16 MG/DL (9-23); CALCIUM LEVEL 8.5 MG/DL (8.3-10.6); CARBON DIOXIDE LEVEL 33 MMOL/L (20-31); CHLORIDE LEVEL 103 MMOL/L (98-107); CREATININE FOR GFR 1.02 MG/DL (0.70-1.30); GLOMERULAR FILTRATION RATE > 60.0 (>42); GLUCOSE, FASTING 139 MG/DL (74-106); POTASSIUM SERUM 4.2 MMOL/L (3.5-5.1); SODIUM LEVEL 141 MMOL/L (136-145)
[2023-11-12 10:48] LABS: CK-MB VALUE MASS < 1.0 NG/ML (<3.6)
[2023-11-12 10:49] LABS: CPK CREATINE PHOSPHOKINASE 44 U/L (46-171); MB/CK RELATIVE INDEX 2.27 (< OR =4)
== END ==
PROVIDERS: ATTEND Physician Assistant
DX: R53.1 Weakness (principal)

== ENCOUNTER → 2023-11-24 | Outpatient (REF) ==
[~2023-11-24] MED LIST changes: +MIRA3350 PO; +SENN-52 PO
[2023-11-24 10:53] LABS: HEMATOCRIT 37.3 % (42.0-52.0); HEMOGLOBIN 11.8 g/dl (13.5-17.5); MEAN CORPUSCULAR HEMOGLOBIN 28.3 pg (27.0-33.0); MEAN CORPUSCULAR HGB CONC 31.6 g/dl (32.0-36.5); MEAN CORPUSCULAR VOLUME 89.4 fl (80.0-96.0); PLATELET COUNT, AUTOMATED 230 10^3/uL (150-450); RED BLOOD COUNT 4.17 10^6/uL (4.30-6.10); WHITE BLOOD COUNT 8.6 10^3/uL (4.0-10.0)
[2023-11-24 11:03] LABS: ERYTHROCYTE SEDIMENTATION RATE 72 mm/hr (0-20)
[2023-11-24 11:29] LABS: C REACTIVE PROTEIN QUANTITATIV 1.1 MG/DL (<1.0)
[2023-11-24 11:32] LABS: CALCIUM LEVEL 8.9 MG/DL (8.3-10.6); CREATININE FOR GFR 1.33 MG/DL (0.70-1.30); GLOMERULAR FILTRATION RATE 55.2 (>42); POTASSIUM SERUM 4.1 MMOL/L (3.5-5.1)
== END ==
LOC: EEVIPCON
PROVIDERS: ATTEND Physician Assistant
DX: Z47.81 Encounter for orthopedic aftercare following surgical amputation (principal); Z89.411 Acquired absence of right great toe

== ENCOUNTER → 2023-11-29 | Outpatient (REF) ==
[2023-11-29 12:12] LABS: BASO # 0.1 10^3/uL (0.0-0.2); BASO % 1.2 % (0.0-1.0); EOS # 0.3 10^3/uL (0.0-0.5); HEMATOCRIT 35.9 % (42.0-52.0); HEMOGLOBIN 11.2 g/dl (13.5-17.5); LYMPH # 1.1 10^3/uL (1.5-5.0); LYMPH % 16.6 % (24.0-44.0); MEAN CORPUSCULAR HGB CONC 31.2 g/dl (32.0-36.5); MEAN CORPUSCULAR VOLUME 89.8 fl (80.0-96.0); MONO # 0.4 10^3/uL (0.0-0.8); MONO % 6.1 % (2.0-8.0); NEUTROPHILS # 4.6 10^3/uL (1.5-8.5); NEUTROPHILS % 71.5 % (36.0-66.0); PLATELET COUNT, AUTOMATED 164 10^3/uL (150-450); WHITE BLOOD COUNT 6.4 10^3/uL (4.0-10.0)
[2023-11-29 12:18] LABS: ERYTHROCYTE SEDIMENTATION RATE 61 mm/hr (0-20)
[2023-11-29 12:54] LABS: C REACTIVE PROTEIN QUANTITATIV < 0.40 MG/DL (<1.0)
[2023-11-29 12:56] LABS: BLOOD UREA NITROGEN 20 MG/DL (9-23); CALCIUM LEVEL 8.9 MG/DL (8.3-10.6); CARBON DIOXIDE LEVEL 34 MMOL/L (20-31); CHLORIDE LEVEL 105 MMOL/L (98-107); CREATININE FOR GFR 1.23 MG/DL (0.70-1.30); GLOMERULAR FILTRATION RATE > 60.0 (>42); GLUCOSE, FASTING 86 MG/DL (74-106); POTASSIUM SERUM 4.4 MMOL/L (3.5-5.1); SODIUM LEVEL 142 MMOL/L (136-145)
== END ==
PROVIDERS: ATTEND Physician Assistant
DX: S91.302A Unspecified open wound, left foot, initial encounter (principal)

== ENCOUNTER → 2023-12-27 | Outpatient (REF) | payer MEDICARE ==
[2023-12-27 11:24] LABS: HEMATOCRIT 36.2 % (42.0-52.0); HEMOGLOBIN 11.6 g/dl (13.5-17.5); MEAN CORPUSCULAR HEMOGLOBIN 28.6 pg (27.0-33.0); MEAN CORPUSCULAR VOLUME 89.4 fl (80.0-96.0); PLATELET COUNT, AUTOMATED 192 10^3/uL (150-450); RED BLOOD COUNT 4.05 10^6/uL (4.30-6.10); WHITE BLOOD COUNT 6.4 10^3/uL (4.0-10.0)
[2023-12-27 11:48] LABS: BLOOD UREA NITROGEN 18 MG/DL (9-23); CALCIUM LEVEL 9.2 MG/DL (8.3-10.6); CARBON DIOXIDE LEVEL 32 MMOL/L (20-31); CHLORIDE LEVEL 101 MMOL/L (98-107); CREATININE FOR GFR 1.02 MG/DL (0.70-1.30); GLOMERULAR FILTRATION RATE > 60.0 (>42); GLUCOSE, FASTING 237 MG/DL (74-106); POTASSIUM SERUM 3.9 MMOL/L (3.5-5.1); SODIUM LEVEL 139 MMOL/L (136-145)
== END ==
PROVIDERS: ATTEND Physician Assistant
DX: Z47.81 Encounter for orthopedic aftercare following surgical amputation (principal); Z89.411 Acquired absence of right great toe; Z79.899 Other long term (current) drug therapy

== ENCOUNTER → 2024-01-05 | Outpatient (REF) | payer MEDICARE | PROVIDERS: ATTEND Internal Medicine | DX: M89.8X7 Other specified disorders of bone, ankle and foot (principal) ==

== ENCOUNTER → 2024-01-05 | Outpatient (REF) | payer MEDICARE ==
[2024-01-05 14:36] LABS: BASO % 0.4 % (0.0-1.0); EOS # 0.4 10^3/uL (0.0-0.5); EOS % 5.2 % (0.0-3.0); HEMATOCRIT 32.6 % (42.0-52.0); HEMOGLOBIN 10.3 g/dl (13.5-17.5); LYMPH # 1.3 10^3/uL (1.5-5.0); LYMPH % 16.8 % (24.0-44.0); MEAN CORPUSCULAR HEMOGLOBIN 28.4 pg (27.0-33.0); MEAN CORPUSCULAR HGB CONC 31.6 g/dl (32.0-36.5); MEAN CORPUSCULAR VOLUME 89.8 fl (80.0-96.0); MONO # 0.6 10^3/uL (0.0-0.8); NEUTROPHILS # 5.2 10^3/uL (1.5-8.5); NEUTROPHILS % 69.1 % (36.0-66.0); PLATELET COUNT, AUTOMATED 165 10^3/uL (150-450); RED BLOOD COUNT 3.63 10^6/uL (4.30-6.10); WHITE BLOOD COUNT 7.5 10^3/uL (4.0-10.0)
[2024-01-05 14:42] LABS: ERYTHROCYTE SEDIMENTATION RATE 71 mm/hr (0-20)
[2024-01-05 15:01] LABS: C REACTIVE PROTEIN QUANTITATIV 11.6 MG/DL (<1.0)
[2024-01-05 15:03] LABS: CALCIUM LEVEL 8.8 MG/DL (8.3-10.6); CREATININE FOR GFR 1.42 MG/DL (0.70-1.30); GLOMERULAR FILTRATION RATE 51.2 (>42); POTASSIUM SERUM 4.3 MMOL/L (3.5-5.1)
== END ==
PROVIDERS: ATTEND Physician Assistant
DX: S91.301A Unspecified open wound, right foot, initial encounter (principal); X58.XXXA Exposure to other specified factors, initial encounter; Y92.9 Unspecified place or not applicable; Y93.9 Activity, unspecified; Y99.9 Unspecified external cause status; M89.8X7 Other specified disorders of bone, ankle and foot

== ENCOUNTER → 2024-01-25 | Outpatient (REF) | payer MEDICARE | PROVIDERS: ATTEND Physician Assistant | DX: M25.562 Pain in left knee (principal); M85.862 Other specified disorders of bone density and structure, left lower leg ==

== ENCOUNTER → 2024-02-16 | Outpatient (REF) | payer MEDICARE ==
[2024-02-16 09:09] LABS: BASO # 0.1 10^3/uL (0.0-0.2); BASO % 0.8 % (0.0-1.0); EOS # 0.4 10^3/uL (0.0-0.5); EOS % 5.9 % (0.0-3.0); HEMATOCRIT 34.4 % (42.0-52.0); HEMOGLOBIN 10.8 g/dl (13.5-17.5); LYMPH # 1.2 10^3/uL (1.5-5.0); LYMPH % 15.7 % (24.0-44.0); MEAN CORPUSCULAR HEMOGLOBIN 27.2 pg (27.0-33.0); MEAN CORPUSCULAR HGB CONC 31.4 g/dl (32.0-36.5); MEAN CORPUSCULAR VOLUME 86.6 fl (80.0-96.0); MONO # 0.6 10^3/uL (0.0-0.8); MONO % 7.9 % (2.0-8.0); NEUTROPHILS # 5.1 10^3/uL (1.5-8.5); NEUTROPHILS % 68.8 % (36.0-66.0); PLATELET COUNT, AUTOMATED 211 10^3/uL (150-450); RED BLOOD COUNT 3.97 10^6/uL (4.30-6.10); WHITE BLOOD COUNT 7.5 10^3/uL (4.0-10.0)
[2024-02-16 09:40] LABS: BLOOD UREA NITROGEN 16 MG/DL (9-23); CALCIUM LEVEL 8.9 MG/DL (8.3-10.6); CARBON DIOXIDE LEVEL 28 MMOL/L (20-31); CHLORIDE LEVEL 102 MMOL/L (98-107); CREATININE FOR GFR 1.13 MG/DL (0.70-1.30); GLOMERULAR FILTRATION RATE > 60.0 (>35); GLUCOSE, FASTING 122 MG/DL (74-106); POTASSIUM SERUM 3.8 MMOL/L (3.5-5.1); SODIUM LEVEL 138 MMOL/L (136-145)
== END ==
PROVIDERS: ATTEND Physician Assistant
DX: R29.6 Repeated falls (principal)

== ENCOUNTER 2024-02-17 13:24 | Emergency (ER) | payer MEDICARE ==
[~2024-02-17] VITALS: Ht 180.3 cm; Wt 73.7 kg
[2024-02-17 13:36] VITALS: BP 140/90; TEMP 98.4; O2SAT 97
[2024-02-17 14:37] LABS: BASO % 0.6 % (0.0-1.0); EOS # 0.3 10^3/uL (0.0-0.5); EOS % 4.5 % (0.0-3.0); HEMATOCRIT 35.9 % (42.0-52.0); HEMOGLOBIN 11.5 g/dl (13.5-17.5); LYMPH % 15.1 % (24.0-44.0); MEAN CORPUSCULAR HEMOGLOBIN 27.1 pg (27.0-33.0); MEAN CORPUSCULAR VOLUME 84.5 fl (80.0-96.0); MONO # 0.6 10^3/uL (0.0-0.8); MONO % 8.2 % (2.0-8.0); NEUTROPHILS # 4.7 10^3/uL (1.5-8.5); PLATELET COUNT, AUTOMATED 196 10^3/uL (150-450); RED BLOOD COUNT 4.25 10^6/uL (4.30-6.10); WHITE BLOOD COUNT 6.7 10^3/uL (4.0-10.0)
[2024-02-17 14:58] LABS: BLOOD UREA NITROGEN 18 MG/DL (9-23); CALCIUM LEVEL 9.3 MG/DL (8.3-10.6); CARBON DIOXIDE LEVEL 30 MMOL/L (20-31); CHLORIDE LEVEL 104 MMOL/L (98-107); CREATININE FOR GFR 1.02 MG/DL (0.70-1.30); GLOMERULAR FILTRATION RATE > 60.0 (>35); GLUCOSE, FASTING 164 MG/DL (74-106); MAGNESIUM LEVEL 1.6 MG/DL (1.8-2.4); POTASSIUM SERUM 4.3 MMOL/L (3.5-5.1); SODIUM LEVEL 139 MMOL/L (136-145)
[2024-02-17 15:01] LABS: FREE T4 1.23 NG/DL (0.89-1.76); THYROID STIMULATING HORMONE 1.321 uIU/ML (0.55-4.78)
== END 2024-02-17 15:55 | disposition home or self-care (01) ==
LOC: EDBD 13:24 → M ED 13:24
DX: S00.93XA Contusion of unspecified part of head, initial encounter (principal); Y92.019 Unspecified place in single-family (private) house as the place of occurrence of the external cause; Y93.9 Activity, unspecified; Y99.9 Unspecified external cause status; W19.XXXA Unspecified fall, initial encounter; E11.9 Type 2 diabetes mellitus without complications; I10 Essential (primary) hypertension; E78.5 Hyperlipidemia, unspecified; Z85.46 Personal history of malignant neoplasm of prostate; Z88.0 Allergy status to penicillin; Z88.5 Allergy status to narcotic agent; Z79.1 Long term (current) use of non-steroidal anti-inflammatories (NSAID); Z79.84 Long term (current) use of oral hypoglycemic drugs; Z79.899 Other long term (current) drug therapy

== ENCOUNTER → 2024-02-17 | Outpatient (REF) | payer MEDICARE | PROVIDERS: ATTEND Physician Assistant | DX: R29.6 Repeated falls (principal); Z53.8 Procedure and treatment not carried out for other reasons ==

== ENCOUNTER → 2024-02-21 | Outpatient (REF) | payer MEDICARE ==
[2024-02-21 10:07] LABS: HEMATOCRIT 36.4 % (42.0-52.0); HEMOGLOBIN 11.2 g/dl (13.5-17.5); MEAN CORPUSCULAR HEMOGLOBIN 26.7 pg (27.0-33.0); MEAN CORPUSCULAR HGB CONC 30.8 g/dl (32.0-36.5); MEAN CORPUSCULAR VOLUME 86.9 fl (80.0-96.0); PLATELET COUNT, AUTOMATED 228 10^3/uL (150-450); RED BLOOD COUNT 4.19 10^6/uL (4.30-6.10)
[2024-02-21 10:22] LABS: ERYTHROCYTE SEDIMENTATION RATE 95 mm/hr (0-20)
[2024-02-21 10:52] LABS: C REACTIVE PROTEIN QUANTITATIV 2.5 MG/DL (<1.0)
[2024-02-21 14:27] LABS: RHEUMATOID FACTOR QUANT 26.3 IU/ML (<14)
[2024-02-22 13:16] LABS: ANA SCREEN, IFA NEGATIVE (NEGATIVE)
== END ==
PROVIDERS: ATTEND Physician Assistant
DX: M25.50 Pain in unspecified joint (principal)

== ENCOUNTER → 2024-02-22 | Outpatient (REF) | payer MEDICARE | PROVIDERS: ATTEND Physician Assistant | DX: M79.641 Pain in right hand (principal); M79.642 Pain in left hand ==

== ENCOUNTER → 2024-02-23 | Outpatient (REF) | payer MEDICARE | PROVIDERS: ATTEND Physician Assistant | DX: Z79.899 Other long term (current) drug therapy (principal); Z53.8 Procedure and treatment not carried out for other reasons ==

== ENCOUNTER → 2024-02-29 | Outpatient (REF) | payer MEDICARE | PROVIDERS: ATTEND Physician Assistant | DX: Z13.83 Encounter for screening for respiratory disorder NEC (principal) ==

== ENCOUNTER → 2024-02-29 | Outpatient (REF) | payer MEDICARE ==
[2024-02-29 14:35] LABS: BASO # 0.1 10^3/uL (0.0-0.2); BASO % 0.6 % (0.0-1.0); EOS # 0.2 10^3/uL (0.0-0.5); HEMATOCRIT 34.2 % (42.0-52.0); HEMOGLOBIN 10.8 g/dl (13.5-17.5); LYMPH % 11.9 % (24.0-44.0); MEAN CORPUSCULAR HEMOGLOBIN 27.3 pg (27.0-33.0); MEAN CORPUSCULAR HGB CONC 31.6 g/dl (32.0-36.5); MEAN CORPUSCULAR VOLUME 86.6 fl (80.0-96.0); MONO # 0.3 10^3/uL (0.0-0.8); MONO % 4.1 % (2.0-8.0); NEUTROPHILS # 6.5 10^3/uL (1.5-8.5); NEUTROPHILS % 80.7 % (36.0-66.0); PLATELET COUNT, AUTOMATED 222 10^3/uL (150-450); RED BLOOD COUNT 3.95 10^6/uL (4.30-6.10); WHITE BLOOD COUNT 8.1 10^3/uL (4.0-10.0)
[2024-02-29 15:07] LABS: ALKALINE PHOSPHATASE 148 U/L (46-116); ALT/SGPT 36 U/L (7.0-40); AST/SGOT 40 U/L (<34); BILIRUBIN,DIRECT 0.1 MG/DL (<0.4); BILIRUBIN,TOTAL 0.4 MG/DL (0.3-1.2); BLOOD UREA NITROGEN 23 MG/DL (9-23); CALCIUM LEVEL 9.6 MG/DL (8.3-10.6); CARBON DIOXIDE LEVEL 32 MMOL/L (20-31); CHLORIDE LEVEL 102 MMOL/L (98-107); CREATININE FOR GFR 0.95 MG/DL (0.70-1.30); GLOMERULAR FILTRATION RATE > 60.0 (>35); GLUCOSE, FASTING 147 MG/DL (74-106); SODIUM LEVEL 139 MMOL/L (136-145); TOTAL PROTEIN 7.3 G/DL (5.7-8.2)
== END ==
PROVIDERS: ATTEND Physician Assistant
DX: M06.9 Rheumatoid arthritis, unspecified (principal); Z13.83 Encounter for screening for respiratory disorder NEC

== ENCOUNTER → 2024-03-06 | Outpatient (REF) | payer MEDICARE ==
[2024-03-06 10:11] LABS: BASO # 0.1 10^3/uL (0.0-0.2); BASO % 0.8 % (0.0-1.0); EOS # 0.3 10^3/uL (0.0-0.5); EOS % 2.4 % (0.0-3.0); HEMATOCRIT 36.8 % (42.0-52.0); HEMOGLOBIN 11.5 g/dl (13.5-17.5); LYMPH # 1.5 10^3/uL (1.5-5.0); LYMPH % 13.8 % (24.0-44.0); MEAN CORPUSCULAR HEMOGLOBIN 26.8 pg (27.0-33.0); MEAN CORPUSCULAR HGB CONC 31.3 g/dl (32.0-36.5); MEAN CORPUSCULAR VOLUME 85.8 fl (80.0-96.0); MONO # 0.5 10^3/uL (0.0-0.8); MONO % 4.4 % (2.0-8.0); NEUTROPHILS # 8.7 10^3/uL (1.5-8.5); NEUTROPHILS % 77.8 % (36.0-66.0); PLATELET COUNT, AUTOMATED 248 10^3/uL (150-450); RED BLOOD COUNT 4.29 10^6/uL (4.30-6.10); WHITE BLOOD COUNT 11.2 10^3/uL (4.0-10.0)
[2024-03-06 10:59] LABS: BLOOD UREA NITROGEN 33 MG/DL (9-23); CALCIUM LEVEL 10.3 MG/DL (8.3-10.6); CARBON DIOXIDE LEVEL 32 MMOL/L (20-31); CHLORIDE LEVEL 105 MMOL/L (98-107); CREATININE FOR GFR 1.14 MG/DL (0.70-1.30); GLOMERULAR FILTRATION RATE > 60.0 (>35); GLUCOSE, FASTING 171 MG/DL (74-106); POTASSIUM SERUM 4.1 MMOL/L (3.5-5.1); SODIUM LEVEL 142 MMOL/L (136-145)
== END ==
PROVIDERS: ATTEND Physician Assistant
DX: R41.82 Altered mental status, unspecified (principal)

== ENCOUNTER → 2024-03-24 | Outpatient (REF) | payer MEDICARE ==
[2024-03-24 18:04] LABS: HEMOGLOBIN 9.8 g/dl (13.5-17.5); MEAN CORPUSCULAR HEMOGLOBIN 26.3 pg (27.0-33.0); MEAN CORPUSCULAR HGB CONC 31.6 g/dl (32.0-36.5); MEAN CORPUSCULAR VOLUME 83.3 fl (80.0-96.0); PLATELET COUNT, AUTOMATED 122 10^3/uL (150-450); RED BLOOD COUNT 3.72 10^6/uL (4.30-6.10); WHITE BLOOD COUNT 4.5 10^3/uL (4.0-10.0)
[2024-03-24 18:26] LABS: C REACTIVE PROTEIN QUANTITATIV 6.3 MG/DL (<1.0)
[2024-03-24 18:27] LABS: URIC ACID 6.4 MG/DL (3.7-9.2)
== END ==
PROVIDERS: ATTEND Internal Medicine
DX: L03.90 Cellulitis, unspecified (principal)

== ENCOUNTER → 2024-03-29 | Outpatient (REF) | payer MEDICARE ==
[2024-03-29 08:55] LABS: BASO # 0.1 10^3/uL (0.0-0.2); BASO % 1.1 % (0.0-1.0); EOS # 0.3 10^3/uL (0.0-0.5); EOS % 4.5 % (0.0-3.0); HEMATOCRIT 33.4 % (42.0-52.0); HEMOGLOBIN 10.4 g/dl (13.5-17.5); LYMPH # 1.3 10^3/uL (1.5-5.0); LYMPH % 19.8 % (24.0-44.0); MEAN CORPUSCULAR HEMOGLOBIN 26.5 pg (27.0-33.0); MEAN CORPUSCULAR HGB CONC 31.1 g/dl (32.0-36.5); MONO # 0.5 10^3/uL (0.0-0.8); MONO % 7.2 % (2.0-8.0); NEUTROPHILS # 4.3 10^3/uL (1.5-8.5); PLATELET COUNT, AUTOMATED 177 10^3/uL (150-450); RED BLOOD COUNT 3.93 10^6/uL (4.30-6.10); WHITE BLOOD COUNT 6.7 10^3/uL (4.0-10.0)
[2024-03-29 10:12] LABS: ALBUMIN 2.6 G/DL (3.2-5.2); ALKALINE PHOSPHATASE 128 U/L (40-129); ALT/SGPT 22 U/L (7.0-40); AST/SGOT 24 U/L (<34); BILIRUBIN,DIRECT 0.2 MG/DL (<0.4); BILIRUBIN,TOTAL 0.4 MG/DL (0.3-1.2); BLOOD UREA NITROGEN 17 MG/DL (9-23); CALCIUM LEVEL 8.8 MG/DL (8.3-10.6); CARBON DIOXIDE LEVEL 31 MMOL/L (20-31); CHLORIDE LEVEL 106 MMOL/L (98-107); CREATININE FOR GFR 1.01 MG/DL (0.70-1.30); GLOMERULAR FILTRATION RATE > 60.0 (>35); GLUCOSE, FASTING 126 MG/DL (74-106); POTASSIUM SERUM 4.2 MMOL/L (3.5-5.1); SODIUM LEVEL 142 MMOL/L (136-145); TOTAL PROTEIN 6.6 G/DL (5.7-8.2)
== END ==
PROVIDERS: ATTEND Physician Assistant
DX: Z89.411 Acquired absence of right great toe (principal); Z79.899 Other long term (current) drug therapy

== ENCOUNTER → 2024-04-11 | Outpatient (REF) | payer MEDICARE ==
[2024-04-11 17:53] LABS: APPEARANCE, URINE CLEAR (CLEAR); BACTERIA, URINE AUTO NEGATIVE (NEGATIVE); BILIRUBIN, URINE AUTO NEGATIVE (NEGATIVE); BLOOD, URINE BLOOD NEGATIVE (NEGATIVE); COLOR, URINE YELLOW (YELLOW); GLUCOSE, URINE (UA) AUTO 3+ mg/dL (NEGATIVE); KETONE, URINE AUTO NEGATIVE (NEGATIVE); LEUKOCYTE ESTERASE, URINE AUTO NEGATIVE (NEGATIVE); MUCUS, URINE SMALL (NEGATIVE); NITRITE, URINE AUTO NEGATIVE (NEGATIVE); PROTEIN, URINE AUTO NEGATIVE (NEGATIVE); RBC, URINE AUTO 0 /HPF (0-3); SPECIFIC GRAVITY URINE AUTO 1.018 (1.002-1.035); SQUAMOUS EPITHELIAL CELL UR AU 0 /HPF (0-6); WBC, URINE AUTO 0 /HPF (0-3)
== END ==
PROVIDERS: ATTEND Physician Assistant
DX: R41.82 Altered mental status, unspecified (principal)

== ENCOUNTER → 2024-04-12 | Outpatient (REF) | payer MEDICARE ==
[2024-04-12 09:18] LABS: HEMATOCRIT 29.2 % (42.0-52.0); HEMOGLOBIN 9.3 g/dl (13.5-17.5); MEAN CORPUSCULAR HEMOGLOBIN 27.1 pg (27.0-33.0); MEAN CORPUSCULAR HGB CONC 31.8 g/dl (32.0-36.5); MEAN CORPUSCULAR VOLUME 85.1 fl (80.0-96.0); PLATELET COUNT, AUTOMATED 155 10^3/uL (150-450); RED BLOOD COUNT 3.43 10^6/uL (4.30-6.10); WHITE BLOOD COUNT 6.6 10^3/uL (4.0-10.0)
[2024-04-12 09:49] LABS: BLOOD UREA NITROGEN 13 MG/DL (9-23); CALCIUM LEVEL 8.7 MG/DL (8.3-10.6); CARBON DIOXIDE LEVEL 33 MMOL/L (20-31); CHLORIDE LEVEL 102 MMOL/L (98-107); CREATININE FOR GFR 0.95 MG/DL (0.70-1.30); GLOMERULAR FILTRATION RATE > 60.0 (>35); GLUCOSE, FASTING 82 MG/DL (74-106); SODIUM LEVEL 138 MMOL/L (136-145)
== END ==
PROVIDERS: ATTEND Physician Assistant
DX: R41.82 Altered mental status, unspecified (principal)

== ENCOUNTER → 2024-04-24 | Outpatient (REF) | payer MEDICARE ==
[2024-04-24 10:17] LABS: BASO # 0.1 10^3/uL (0.0-0.2); BASO % 1.2 % (0.0-1.0); EOS # 0.4 10^3/uL (0.0-0.5); EOS % 4.3 % (0.0-3.0); HEMATOCRIT 33.5 % (42.0-52.0); HEMOGLOBIN 10.5 g/dl (13.5-17.5); LYMPH # 1.4 10^3/uL (1.5-5.0); LYMPH % 17.3 % (24.0-44.0); MEAN CORPUSCULAR HEMOGLOBIN 26.9 pg (27.0-33.0); MEAN CORPUSCULAR HGB CONC 31.3 g/dl (32.0-36.5); MEAN CORPUSCULAR VOLUME 85.9 fl (80.0-96.0); MONO # 0.6 10^3/uL (0.0-0.8); MONO % 7.2 % (2.0-8.0); NEUTROPHILS # 5.6 10^3/uL (1.5-8.5); NEUTROPHILS % 69.3 % (36.0-66.0); PLATELET COUNT, AUTOMATED 202 10^3/uL (150-450); WHITE BLOOD COUNT 8.1 10^3/uL (4.0-10.0)
[2024-04-24 10:45] LABS: ALKALINE PHOSPHATASE 116 U/L (40-129); ALT/SGPT 24 U/L (7.0-40); AST/SGOT 22 U/L (<34); BILIRUBIN,DIRECT 0.2 MG/DL (<0.4); BILIRUBIN,TOTAL 0.5 MG/DL (0.3-1.2); BLOOD UREA NITROGEN 21 MG/DL (9-23); CALCIUM LEVEL 9.4 MG/DL (8.3-10.6); CARBON DIOXIDE LEVEL 32 MMOL/L (20-31); CHLORIDE LEVEL 101 MMOL/L (98-107); CREATININE FOR GFR 0.98 MG/DL (0.70-1.30); GLOMERULAR FILTRATION RATE > 60.0 (>35); GLUCOSE, FASTING 129 MG/DL (74-106); POTASSIUM SERUM 3.6 MMOL/L (3.5-5.1); SODIUM LEVEL 140 MMOL/L (136-145); TOTAL PROTEIN 7.5 G/DL (5.7-8.2)
== END ==
PROVIDERS: ATTEND Physician Assistant
DX: M06.9 Rheumatoid arthritis, unspecified (principal)

== ENCOUNTER → 2024-05-31 | Outpatient (REF) | payer MEDICARE ==
[2024-05-31 13:39] LABS: BASO # 0.1 10^3/uL (0.0-0.2); BASO % 0.8 % (0.0-1.0); EOS # 0.3 10^3/uL (0.0-0.5); EOS % 5.7 % (0.0-3.0); HEMOGLOBIN 10.6 g/dl (13.5-17.5); LYMPH # 1.2 10^3/uL (1.5-5.0); LYMPH % 20.7 % (24.0-44.0); MEAN CORPUSCULAR HEMOGLOBIN 27.9 pg (27.0-33.0); MEAN CORPUSCULAR HGB CONC 31.2 g/dl (32.0-36.5); MEAN CORPUSCULAR VOLUME 89.5 fl (80.0-96.0); MONO # 0.5 10^3/uL (0.0-0.8); MONO % 7.8 % (2.0-8.0); NEUTROPHILS # 3.9 10^3/uL (1.5-8.5); NEUTROPHILS % 64.3 % (36.0-66.0); PLATELET COUNT, AUTOMATED 143 10^3/uL (150-450)
[2024-05-31 15:12] LABS: ALBUMIN 3.2 G/DL (3.2-5.2); ALKALINE PHOSPHATASE 116 U/L (40-129); ALT/SGPT 25 U/L (7.0-40); AST/SGOT 17 U/L (<34); BILIRUBIN,DIRECT 0.1 MG/DL (<0.4); BILIRUBIN,TOTAL 0.4 MG/DL (0.3-1.2); BLOOD UREA NITROGEN 21 MG/DL (9-23); CARBON DIOXIDE LEVEL 34 MMOL/L (20-31); CHLORIDE LEVEL 102 MMOL/L (98-107); CREATININE FOR GFR 1.08 MG/DL (0.70-1.30); GLOMERULAR FILTRATION RATE > 60.0 (>35); GLUCOSE, FASTING 201 MG/DL (74-106); SODIUM LEVEL 144 MMOL/L (136-145); TOTAL PROTEIN 6.6 G/DL (5.7-8.2)
== END ==
PROVIDERS: ATTEND Physician Assistant
DX: M06.9 Rheumatoid arthritis, unspecified (principal)

== ENCOUNTER 2024-06-04 18:54 | Inpatient (IN) | payer MEDICARE ==
[~2024-06-04] VITALS: Ht 180.3 cm; Wt 74.0 kg
[2024-06-04] MEDS ORDERED: VANCOMYCIN HCL 1,750 MG in IV FLUID PLACE HOLDER 1 EA IV ONE (19:35)
[2024-06-04] MEDS: VANCOMYCIN 1,750 MG/350 ML IV BAG *LOAD IV ONE (20:36)
[2024-06-04] MEDS: ACETAMINOPHEN *IV* 1,000 MG in IV 1 EA IV ONE (20:36)
[2024-06-04 20:43] LABS: BASO # 0.1 10^3/uL (0.0-0.2); BASO % 0.6 % (0.0-1.0); EOS # 0.4 10^3/uL (0.0-0.5); EOS % 4.1 % (0.0-3.0); HEMATOCRIT 33.1 % (42.0-52.0); HEMOGLOBIN 10.6 g/dl (13.5-17.5); LYMPH # 1.3 10^3/uL (1.5-5.0); LYMPH % 14.8 % (24.0-44.0); MEAN CORPUSCULAR HEMOGLOBIN 28.3 pg (27.0-33.0); MEAN CORPUSCULAR VOLUME 88.5 fl (80.0-96.0); MONO # 0.7 10^3/uL (0.0-0.8); MONO % 7.3 % (2.0-8.0); NEUTROPHILS # 6.5 10^3/uL (1.5-8.5); NEUTROPHILS % 72.6 % (36.0-66.0); PLATELET COUNT, AUTOMATED 147 10^3/uL (150-450); RED BLOOD COUNT 3.74 10^6/uL (4.30-6.10)
[2024-06-04 20:53] LABS: ERYTHROCYTE SEDIMENTATION RATE 43 mm/hr (0-20)
[2024-06-04 20:56] LABS: INR 1.02; PARTIAL THROMBOPLASTIN TIME 26.8 SECONDS (24.8-34.2); PROTHROMBIN TIME 13.7 SECONDS (12.5-14.5)
[2024-06-04 21:07] LABS: LIPASE 26 U/L (12-53)
[2024-06-04 21:08] LABS: CK-MB VALUE MASS 1.1 NG/ML (<3.6)
[2024-06-04 21:09] LABS: ALBUMIN 3.4 G/DL (3.2-5.2); ALKALINE PHOSPHATASE 135 U/L (40-129); ALT/SGPT 27 U/L (7.0-40); AST/SGOT 25 U/L (<34); BILIRUBIN,TOTAL 0.4 MG/DL (0.3-1.2); BLOOD UREA NITROGEN 29 MG/DL (9-23); CALCIUM LEVEL 9.5 MG/DL (8.3-10.6); CARBON DIOXIDE LEVEL 30 MMOL/L (20-31); CHLORIDE LEVEL 105 MMOL/L (98-107); CPK CREATINE PHOSPHOKINASE 81 U/L (46-171); CREATININE FOR GFR 1.18 MG/DL (0.70-1.30); GLOMERULAR FILTRATION RATE > 60.0 (>35); GLUCOSE, FASTING 158 MG/DL (74-106); MB/CK RELATIVE INDEX 1.35 (< OR =4); POTASSIUM SERUM 5.4 MMOL/L (3.5-5.1); SODIUM LEVEL 146 MMOL/L (136-145); TOTAL PROTEIN 7.1 G/DL (5.7-8.2)
[2024-06-04] MEDS ORDERED: ISOVUE-370 76% 100ML VIAL As Ordered ONE (21:14)
[2024-06-04] MEDS: NS (Normal Saline) 0.9% 2,660 ML in IV 1 EA IV ONE (21:50)
[2024-06-04 22:20] LABS: PROCALCITONIN 0.06 ng/ml
[2024-06-04] MEDS: fentaNYL 100 MCG/2 ML INJECTION IV ONE (22:28)
[2024-06-04] MEDS: BOOSTRIX VACCINE (TETANUS/DIPHTH/ACEL. PERTUSSIS) 0.5ML SYR IM ONE (22:29)
[2024-06-04 23:34] LABS: KETONE, URINE AUTO RFX TRACE mg/dL (NEGATIVE); LEUKOCYTE ESTERASE UR AUTO RFX NEGATIVE (NEGATIVE); NITRITE, URINE AUTO RFX NEGATIVE (NEGATIVE); RBC, URINE AUTO RFX 0 /HPF (0-3); SQUAM EPITHELIAL CELL UR AURFX 0 /HPF (0-6); WBC, URINE AUTO RFX 0 /HPF (0-3)
[2024-06-05 00:04] LABS: HEMATOCRIT 30.5 % (42.0-52.0); HEMOGLOBIN 9.7 g/dl (13.5-17.5); MEAN CORPUSCULAR HEMOGLOBIN 28.5 pg (27.0-33.0); MEAN CORPUSCULAR HGB CONC 31.8 g/dl (32.0-36.5); MEAN CORPUSCULAR VOLUME 89.7 fl (80.0-96.0); PLATELET COUNT, AUTOMATED 123 10^3/uL (150-450); WHITE BLOOD COUNT 10.3 10^3/uL (4.0-10.0)
[2024-06-05] MEDS ORDERED: HYDR200T46 PO (03:58)
[2024-06-05] MEDS ORDERED: MIRT1TAB PO (03:58)
[2024-06-05] MEDS ORDERED: ATOR1TAB21 PO (03:58)
[2024-06-05] MEDS ORDERED: ARTIDRO OU (03:58)
[2024-06-05] MEDS ORDERED: DIVA250T67 PO (03:58)
[2024-06-05] MEDS ORDERED: TYLE650T38 PO (03:58)
[2024-06-05] MEDS ORDERED: PRED5TA PO (03:58)
[2024-06-05] MEDS ORDERED: FOLI1TAB11 PO (03:58)
[2024-06-05] MEDS ORDERED: SANT250O8 TOP (03:58)
[2024-06-05] MEDS ORDERED: CELE1CAP99 PO (03:58)
[2024-06-05] MEDS ORDERED: METF500T13 PO (03:58)
[2024-06-05] MEDS ORDERED: HOME MED LIST COMPLETE! XX SCH (04:05)
[2024-06-05] MEDS ORDERED: GLUCOSE 4 GM CHEW PO PRN (04:25)
[2024-06-05] MEDS ORDERED: VANCOMYCIN HCL 1,000 MG, VIAL MATE ADAPTER 1 EACH in NS 250 ML IV SCH (04:25)
[2024-06-05] MEDS ORDERED: DEXTROSE 50% 50ML SYRINGE IV PRN (04:25)
[2024-06-05] MEDS ORDERED: GLUCAGON INJ 1MG VIAL SC PRN (04:25)
[2024-06-05] MEDS ORDERED: MOM 30ML SUSPENSION UDC PO PRN (04:25)
[2024-06-05] MEDS ORDERED: MAALOX 30 ML SUSP *UDC PO PRN (04:25)
[2024-06-05] MEDS: CEFEPIME HCL 2 GM in DEXTROSE 5% (D5W) ADV/MINI-BAG 50 ML IV SCH (06:00)
[2024-06-05 08:35] LABS: BASO # 0.1 10^3/uL (0.0-0.2); BASO % 0.5 % (0.0-1.0); EOS # 0.1 10^3/uL (0.0-0.5); EOS % 0.9 % (0.0-3.0); HEMATOCRIT 29.7 % (42.0-52.0); HEMOGLOBIN 9.6 g/dl (13.5-17.5); LYMPH # 1.2 10^3/uL (1.5-5.0); MEAN CORPUSCULAR HEMOGLOBIN 28.7 pg (27.0-33.0); MEAN CORPUSCULAR HGB CONC 32.3 g/dl (32.0-36.5); MEAN CORPUSCULAR VOLUME 88.9 fl (80.0-96.0); MONO # 0.8 10^3/uL (0.0-0.8); MONO % 7.6 % (2.0-8.0); NEUTROPHILS # 7.7 10^3/uL (1.5-8.5); NEUTROPHILS % 78.5 % (36.0-66.0); PLATELET COUNT, AUTOMATED 133 10^3/uL (150-450); RED BLOOD COUNT 3.34 10^6/uL (4.30-6.10); WHITE BLOOD COUNT 9.8 10^3/uL (4.0-10.0)
[2024-06-05 08:37] LABS: VANCOMYCIN RANDOM 14.1 UG/ML
[2024-06-05 08:40] LABS: BLOOD UREA NITROGEN 25 MG/DL (9-23); CALCIUM LEVEL 8.4 MG/DL (8.3-10.6); CARBON DIOXIDE LEVEL 27 MMOL/L (20-31); CHLORIDE LEVEL 108 MMOL/L (98-107); CREATININE FOR GFR 0.93 MG/DL (0.70-1.30); GLOMERULAR FILTRATION RATE > 60.0 (>35); GLUCOSE, FASTING 125 MG/DL (74-106); POTASSIUM SERUM 4.7 MMOL/L (3.5-5.1); SODIUM LEVEL 144 MMOL/L (136-145)
[2024-06-05] MEDS ORDERED: VANCOMYCIN HCL 750 MG, VIAL MATE ADAPTER 1 EACH in NS 250 ML IV SCH (09:00)
[2024-06-05] MEDS: INSULIN LISPRO (NovoLOG) PER UNIT SC SCH ×2 (09:01→21:00)
[2024-06-05] MEDS: VANCOMYCIN HCL 1,000 MG, VIAL MATE ADAPTER 1 EACH in NS 250 ML IV SCH (09:18)
[2024-06-05] MEDS: DOCUSATE SODIUM 100MG CAPSULE PO SCH (09:22)
[2024-06-05] MEDS: SANTYL OINT 30GM TOP SCH (11:02)
[2024-06-05] MEDS: NS (Normal Saline) 0.9% 1,000 ML IV SCH (12:10)
[2024-06-05] MEDS ORDERED: ACETAMINOPHEN 1000MG/100ML IV BAG As Ordered ONE (16:40)
[2024-06-05] MEDS ORDERED: fentaNYL 100 MCG/2 ML INJECTION As Ordered ONE (16:40)
[2024-06-05] MEDS ORDERED: propofoL 200 MG/20 ML VIAL As Ordered ONE (16:41)
[2024-06-05] MEDS ORDERED: LIDOCAINE 2% 100MG/5ML SDV (FOR ANES.) As Ordered ONE (16:41)
[2024-06-05] MEDS ORDERED: ONDANSETRON 4MG 2ML VIAL As Ordered ONE (16:41)
[2024-06-05] MEDS ORDERED: KETAMINE HCL 200MG/20ML VIAL As Ordered ONE (17:43)
[2024-06-05] MEDS ORDERED: MIDAZOLAM INJ 2MG/2ML VIAL As Ordered ONE (17:43)
[2024-06-05] MEDS: ceFAZolin 2 GM/D5W 50 ML IV BAG As Ordered ONE (18:16)
[2024-06-05] MEDS ORDERED: PHENYLephrine 500MCG 5ML (100MCG/ML) SYRINGE As Ordered ONE (18:43)
[2024-06-05] MEDS ORDERED: ePHEDrine SULFATE 25 MG/5 ML(5MG/ML) SYRINGE As Ordered ONE (18:55)
[2024-06-05] MEDS ORDERED: CALCIUM CHLORIDE 10% 1 GM/10 ML SYR As Ordered ONE (19:25)
[2024-06-05 21:43] VITALS: BP 102/72; TEMP 97.7; O2SAT 96
[2024-06-05 22:41] VITALS: BP 112/71; TEMP 97.6; O2SAT 94
[2024-06-05 23:42] VITALS: BP 123/71; TEMP 97.2; O2SAT 97
[2024-06-06 00:53] VITALS: BP 159/89; TEMP 97.5; O2SAT 96
[2024-06-06 01:43] VITALS: BP 161/90; TEMP 97.6; O2SAT 97
[2024-06-06] MEDS: ACETAMINOPHEN *IV* 1,000 MG in IV 1 EA IV ONE ×2 (02:04→08:47)
[2024-06-06] MEDS: KETOROLAC 30 MG/ML 1ML VIAL IV PRN ×2 (02:05→20:43)
[2024-06-06] MEDS: METHOCARBAMOL 1,000 MG/10 ML VIAL IV ONE (02:37)
[2024-06-06] MEDS ORDERED: ceFAZolin SOD 2 GM in IV 1 EA IV SCH (02:45)
[2024-06-06] MEDS ORDERED: methocarbamoL 500 MG TAB PO PRN (08:00)
[2024-06-06 10:18] LABS: HEMATOCRIT 24.5 % (42.0-52.0); HEMOGLOBIN 7.9 g/dl (13.5-17.5); MEAN CORPUSCULAR HGB CONC 32.2 g/dl (32.0-36.5); MEAN CORPUSCULAR VOLUME 86.9 fl (80.0-96.0); PLATELET COUNT, AUTOMATED 104 10^3/uL (150-450); RED BLOOD COUNT 2.82 10^6/uL (4.30-6.10); WHITE BLOOD COUNT 6.9 10^3/uL (4.0-10.0)
[2024-06-06 10:40] LABS: ALBUMIN 2.5 G/DL (3.2-5.2); ALKALINE PHOSPHATASE 111 U/L (40-129); ALT/SGPT 14 U/L (7.0-40); AST/SGOT 20 U/L (<34); BILIRUBIN,TOTAL 0.5 MG/DL (0.3-1.2); BLOOD UREA NITROGEN 20 MG/DL (9-23); CALCIUM LEVEL 8.5 MG/DL (8.3-10.6); CARBON DIOXIDE LEVEL 26 MMOL/L (20-31); CHLORIDE LEVEL 109 MMOL/L (98-107); GLOMERULAR FILTRATION RATE > 60.0 (>35); GLUCOSE, FASTING 94 MG/DL (74-106); MAGNESIUM LEVEL 1.3 MG/DL (1.8-2.4); POTASSIUM SERUM 4.4 MMOL/L (3.5-5.1); SODIUM LEVEL 140 MMOL/L (136-145); TOTAL PROTEIN 5.6 G/DL (5.7-8.2)
[2024-06-06] MEDS: VANCOMYCIN HCL 750 MG, VIAL MATE ADAPTER 1 EACH in NS 250 ML IV SCH (12:57)
[2024-06-06] MEDS ORDERED: OMEPRAZOLE 20MG CAP PO PRN (18:00)
[2024-06-06] MEDS ORDERED: ACETAMINOPHEN 650MG ER TAB (TYLENOL ARTHRITIS) PO SCH (18:00)
[2024-06-06] MEDS ORDERED: PIPERACILLIN/TAZOBACTAM SOD 3.375 GM in DEXTROSE 5% (D5W) ADV/MINI-BAG 50 ML IV SCH (18:10)
[2024-06-06 19:47] VITALS: BP 137/79; TEMP 98.8; O2SAT 92
[2024-06-06] MEDS: RAMELTEON 8 MG TAB (ROZEREM) PO SCH (20:41)
[2024-06-06] MEDS: MIRTAZAPINE 7.5MG PER 1/2 TABLET PO SCH (20:41)
[2024-06-06] MEDS: DIVALPROEX 250MG TAB PO SCH (20:41)
[2024-06-06] MEDS: ATORVASTATIN 20 MG TAB PO SCH (20:41)
[2024-06-07] VITALS (12 sets, daily range): BP systolic 103–164; BP diastolic 60–100; TEMP 97.3–98.4; O2SAT 93–99
[2024-06-07] MEDS: CEFEPIME HCL 2 GM in DEXTROSE 5% (D5W) ADV/MINI-BAG 50 ML IV SCH (06:25)
[2024-06-07 07:09] LABS: HEMATOCRIT 21.9 % (42.0-52.0); MEAN CORPUSCULAR HEMOGLOBIN 28.5 pg (27.0-33.0); RED BLOOD COUNT 2.46 10^6/uL (4.30-6.10); WHITE BLOOD COUNT 5.2 10^3/uL (4.0-10.0)
[2024-06-07 07:56] LABS: BLOOD UREA NITROGEN 27 MG/DL (9-23); CALCIUM LEVEL 7.6 MG/DL (8.3-10.6); CARBON DIOXIDE LEVEL 26 MMOL/L (20-31); CHLORIDE LEVEL 112 MMOL/L (98-107); CREATININE FOR GFR 1.13 MG/DL (0.70-1.30); GLOMERULAR FILTRATION RATE > 60.0 (>35); GLUCOSE, FASTING 113 MG/DL (74-106); POTASSIUM SERUM 3.9 MMOL/L (3.5-5.1); SODIUM LEVEL 144 MMOL/L (136-145)
[2024-06-07 08:11] LABS: PLATELET COUNT, AUTOMATED 97 10^3/uL (150-450)
[2024-06-07] MEDS: FOLIC ACID 1MG TAB PO SCH (08:26)
[2024-06-07] MEDS: TAMSULOSIN 0.4 MG CAP PO SCH (08:26)
[2024-06-07] MEDS: buPROPion **XL** TABLET 150MG (WELLBUTRIN XL) PO SCH (08:26)
[2024-06-07 11:39] LABS: HEMATOCRIT 23.2 % (42.0-52.0); HEMOGLOBIN 7.4 g/dl (13.5-17.5); MEAN CORPUSCULAR HEMOGLOBIN 28.6 pg (27.0-33.0); MEAN CORPUSCULAR HGB CONC 31.9 g/dl (32.0-36.5); MEAN CORPUSCULAR VOLUME 89.6 fl (80.0-96.0); PLATELET COUNT, AUTOMATED 105 10^3/uL (150-450); RED BLOOD COUNT 2.59 10^6/uL (4.30-6.10); WHITE BLOOD COUNT 6.2 10^3/uL (4.0-10.0)
[2024-06-07 20:52] LABS: CALCIUM LEVEL 8.2 MG/DL (8.3-10.6); MAGNESIUM LEVEL 1.6 MG/DL (1.8-2.4)
[2024-06-08] VITALS: BP 152/73; TEMP 97.7; O2SAT 94
[2024-06-08 00:55] LABS: HEMATOCRIT 27.2 % (42.0-52.0); MEAN CORPUSCULAR HGB CONC 33.1 g/dl (32.0-36.5); MEAN CORPUSCULAR VOLUME 87.7 fl (80.0-96.0); PLATELET COUNT, AUTOMATED 104 10^3/uL (150-450); WHITE BLOOD COUNT 6.9 10^3/uL (4.0-10.0)
[2024-06-08 04:00] VITALS: BP 137/74; TEMP 98.1; O2SAT 94
[2024-06-08 07:29] LABS: HEMATOCRIT 27.9 % (42.0-52.0); HEMOGLOBIN 9.3 g/dl (13.5-17.5); MEAN CORPUSCULAR HEMOGLOBIN 29.2 pg (27.0-33.0); MEAN CORPUSCULAR HGB CONC 33.3 g/dl (32.0-36.5); MEAN CORPUSCULAR VOLUME 87.5 fl (80.0-96.0); PLATELET COUNT, AUTOMATED 109 10^3/uL (150-450); RED BLOOD COUNT 3.19 10^6/uL (4.30-6.10); WHITE BLOOD COUNT 6.3 10^3/uL (4.0-10.0)
[2024-06-08 07:58] LABS: BLOOD UREA NITROGEN 20 MG/DL (9-23); CALCIUM LEVEL 8.2 MG/DL (8.3-10.6); CARBON DIOXIDE LEVEL 27 MMOL/L (20-31); CHLORIDE LEVEL 111 MMOL/L (98-107); CREATININE FOR GFR 0.84 MG/DL (0.70-1.30); GLOMERULAR FILTRATION RATE > 60.0 (>35); GLUCOSE, FASTING 108 MG/DL (74-106); SODIUM LEVEL 144 MMOL/L (136-145)
[2024-06-08 08:00] VITALS: BP 128/64; TEMP 97.6; O2SAT 89
[2024-06-08 12:00] VITALS: BP 127/64; TEMP 97.1; O2SAT 94
[2024-06-08 16:00] VITALS: BP 142/75; TEMP 97.5; O2SAT 97
[2024-06-08] MEDS ORDERED: HALOPERIDOL 0.25MG PER 1/2 TABLET PO PRN (18:20)
[2024-06-08] MEDS ORDERED: ACETAMINOPHEN 500 MG TAB PO PRN (18:35)
[2024-06-08] MEDS: MIRTAZAPINE 7.5MG PER 1/2 TABLET PO SCH (18:47)
[2024-06-08] MEDS: ACETAMINOPHEN 500 MG TAB PO ONE (18:48)
[2024-06-08] MEDS: HALOPERIDOL LACTATE 5MG/ML VIAL IM PRN (20:04)
[2024-06-08 20:12] VITALS: BP 140/76; TEMP 98.8
[2024-06-09] VITALS: BP 138/72; TEMP 98
[2024-06-09 04:57] VITALS: BP 136/71; TEMP 97.6
[2024-06-09 06:03] LABS: HEMOGLOBIN 8.6 g/dl (13.5-17.5); MEAN CORPUSCULAR HEMOGLOBIN 28.9 pg (27.0-33.0); MEAN CORPUSCULAR HGB CONC 33.1 g/dl (32.0-36.5); MEAN CORPUSCULAR VOLUME 87.2 fl (80.0-96.0); PLATELET COUNT, AUTOMATED 118 10^3/uL (150-450); RED BLOOD COUNT 2.98 10^6/uL (4.30-6.10); WHITE BLOOD COUNT 5.9 10^3/uL (4.0-10.0)
[2024-06-09 06:20] LABS: BLOOD UREA NITROGEN 28 MG/DL (9-23); CALCIUM LEVEL 8.3 MG/DL (8.3-10.6); CARBON DIOXIDE LEVEL 27 MMOL/L (20-31); CHLORIDE LEVEL 113 MMOL/L (98-107); CREATININE FOR GFR 1.02 MG/DL (0.70-1.30); GLOMERULAR FILTRATION RATE > 60.0 (>35); GLUCOSE, FASTING 101 MG/DL (74-106); POTASSIUM SERUM 3.9 MMOL/L (3.5-5.1); SODIUM LEVEL 146 MMOL/L (136-145)
[2024-06-09 07:37] VITALS: BP 146/71; TEMP 98.4; O2SAT 97
[2024-06-09] MEDS: ACETAMINOPHEN 325 MG TAB PO PRN (10:14)
[2024-06-09] MEDS ORDERED: CEFD300C PO (10:55)
[2024-06-09] MEDS ORDERED: METH-1164 PO (10:55)
[2024-06-09] MEDS ORDERED: DOXY-440 PO (10:55)
== END 2024-06-09 12:35 | DRG 480 ==
LOC: M ED 18:54 → EDBD 18:54 → M ED INP 06-05 04:23 → M MS5PR 06-05 20:48
PROVIDERS: ADMIT Family Medicine; ATTEND Student in an Organized Health Care Education/Training Program
PROC: 0QS636Z Reposition Right Upper Femur with Intramedullary Internal Fixation Device, Percutaneous Approach (ICD-10-PCS; principal; 2024-06-05 13:00)
PROC: 30233N1 Transfusion of Nonautologous Red Blood Cells into Peripheral Vein, Percutaneous Approach (ICD-10-PCS; 2024-06-07)
DX: S72.144A Nondisplaced intertrochanteric fracture of right femur, initial encounter for closed fracture (principal); G93.41 Metabolic encephalopathy; I69.351 Hemiplegia and hemiparesis following cerebral infarction affecting right dominant side; M86.671 Other chronic osteomyelitis, right ankle and foot; F05 Delirium due to known physiological condition; I10 Essential (primary) hypertension; E78.5 Hyperlipidemia, unspecified; K21.9 Gastro-esophageal reflux disease without esophagitis; K22.70 Barrett's esophagus without dysplasia; Z85.46 Personal history of malignant neoplasm of prostate; N28.89 Other specified disorders of kidney and ureter; E11.621 Type 2 diabetes mellitus with foot ulcer; F32.A Depression, unspecified; Z66 Do not resuscitate; R11.2 Nausea with vomiting, unspecified; N40.0 Benign prostatic hyperplasia without lower urinary tract symptoms; E11.69 Type 2 diabetes mellitus with other specified complication; F03.90 Unspecified dementia, unspecified severity, without behavioral disturbance, psychotic disturbance, mood disturbance, and anxiety; Z89.411 Acquired absence of right great toe; Z89.421 Acquired absence of other right toe(s); Z79.84 Long term (current) use of oral hypoglycemic drugs; Z79.899 Other long term (current) drug therapy; Z88.0 Allergy status to penicillin; Z88.5 Allergy status to narcotic agent; W18.30XA Fall on same level, unspecified, initial encounter; Y92.128 Other place in nursing home as the place of occurrence of the external cause; Y93.89 Activity, other specified; Y99.8 Other external cause status

== ENCOUNTER → 2024-06-12 | Outpatient (REF) ==
[~2024-06-12] MED LIST changes: +ARTIDRO OU; +ATOR1TAB21 PO; +CEFD300C PO; +CELE1CAP99 PO; +DIVA250T67 PO; +DOXY-440 PO; +FOLI1TAB11 PO; +HYDR200T46 PO; +METF500T13 PO; +METH-1164 PO; +MIRT1TAB PO; +PRED5TA PO; +SANT250O8 TOP; +TYLE650T38 PO
[2024-06-12 10:49] LABS: BASO # 0.1 10^3/uL (0.0-0.2); BASO % 0.7 % (0.0-1.0); EOS # 0.6 10^3/uL (0.0-0.5); EOS % 7.4 % (0.0-3.0); HEMATOCRIT 31.6 % (42.0-52.0); HEMOGLOBIN 10.1 g/dl (13.5-17.5); LYMPH # 1.2 10^3/uL (1.5-5.0); LYMPH % 14.7 % (24.0-44.0); MEAN CORPUSCULAR HEMOGLOBIN 29.3 pg (27.0-33.0); MEAN CORPUSCULAR VOLUME 91.6 fl (80.0-96.0); MONO # 0.7 10^3/uL (0.0-0.8); MONO % 8.1 % (2.0-8.0); NEUTROPHILS # 5.5 10^3/uL (1.5-8.5); NEUTROPHILS % 67.5 % (36.0-66.0); PLATELET COUNT, AUTOMATED 200 10^3/uL (150-450); RED BLOOD COUNT 3.45 10^6/uL (4.30-6.10); WHITE BLOOD COUNT 8.1 10^3/uL (4.0-10.0)
[2024-06-12 11:29] LABS: ALBUMIN 2.7 G/DL (3.2-5.2); ALKALINE PHOSPHATASE 125 U/L (40-129); ALT/SGPT 26 U/L (7.0-40); AST/SGOT 23 U/L (<34); BILIRUBIN,DIRECT 0.3 MG/DL (<0.4); BILIRUBIN,TOTAL 0.7 MG/DL (0.3-1.2); BLOOD UREA NITROGEN 23 MG/DL (9-23); CALCIUM LEVEL 8.7 MG/DL (8.3-10.6); CARBON DIOXIDE LEVEL 28 MMOL/L (20-31); CHLORIDE LEVEL 103 MMOL/L (98-107); CREATININE FOR GFR 0.99 MG/DL (0.70-1.30); GLOMERULAR FILTRATION RATE > 60.0 (>35); GLUCOSE, FASTING 140 MG/DL (74-106); POTASSIUM SERUM 4.4 MMOL/L (3.5-5.1); SODIUM LEVEL 141 MMOL/L (136-145); TOTAL PROTEIN 6.2 G/DL (5.7-8.2)
== END ==
PROVIDERS: ATTEND Physician Assistant
DX: M86.9 Osteomyelitis, unspecified (principal)

== ENCOUNTER → 2024-06-19 | Outpatient (REF) ==
[2024-06-19 10:15] LABS: BASO # 0.1 10^3/uL (0.0-0.2); EOS # 0.5 10^3/uL (0.0-0.5); EOS % 7.7 % (0.0-3.0); HEMATOCRIT 32.3 % (42.0-52.0); HEMOGLOBIN 10.4 g/dl (13.5-17.5); LYMPH # 1.6 10^3/uL (1.5-5.0); LYMPH % 22.8 % (24.0-44.0); MEAN CORPUSCULAR HEMOGLOBIN 29.8 pg (27.0-33.0); MEAN CORPUSCULAR HGB CONC 32.2 g/dl (32.0-36.5); MEAN CORPUSCULAR VOLUME 92.6 fl (80.0-96.0); MONO # 0.5 10^3/uL (0.0-0.8); MONO % 7.4 % (2.0-8.0); NEUTROPHILS # 4.1 10^3/uL (1.5-8.5); NEUTROPHILS % 60.4 % (36.0-66.0); PLATELET COUNT, AUTOMATED 215 10^3/uL (150-450); RED BLOOD COUNT 3.49 10^6/uL (4.30-6.10); WHITE BLOOD COUNT 6.8 10^3/uL (4.0-10.0)
[2024-06-19 10:36] LABS: ALKALINE PHOSPHATASE 132 U/L (40-129); ALT/SGPT 22 U/L (7.0-40); AST/SGOT 25 U/L (<34); BILIRUBIN,DIRECT 0.2 MG/DL (<0.4); BILIRUBIN,TOTAL 0.6 MG/DL (0.3-1.2); BLOOD UREA NITROGEN 28 MG/DL (9-23); CALCIUM LEVEL 9.2 MG/DL (8.3-10.6); CARBON DIOXIDE LEVEL 32 MMOL/L (20-31); CHLORIDE LEVEL 102 MMOL/L (98-107); CREATININE FOR GFR 1.05 MG/DL (0.70-1.30); GLOMERULAR FILTRATION RATE > 60.0 (>35); GLUCOSE, FASTING 101 MG/DL (74-106); POTASSIUM SERUM 4.8 MMOL/L (3.5-5.1); SODIUM LEVEL 142 MMOL/L (136-145); TOTAL PROTEIN 6.5 G/DL (5.7-8.2)
== END ==
PROVIDERS: ATTEND Physician Assistant
DX: M06.9 Rheumatoid arthritis, unspecified (principal)

== ENCOUNTER → 2024-06-20 | Outpatient (CLI) | payer MEDICARE | LOC: M SOG 08:04 | PROVIDERS: ATTEND Physician Assistant | DX: S72.141A Displaced intertrochanteric fracture of right femur, initial encounter for closed fracture (principal) ==

== ENCOUNTER → 2024-06-26 | Outpatient (REF) | payer MEDICARE | PROVIDERS: ATTEND Physician Assistant | DX: Z53.8 Procedure and treatment not carried out for other reasons (principal) ==

== ENCOUNTER → 2024-07-12 | Outpatient (REF) | payer MEDICARE | LOC: M PLAIMG 10:08 | PROVIDERS: ATTEND Physician Assistant | DX: M25.551 Pain in right hip (principal); S72.141A Displaced intertrochanteric fracture of right femur, initial encounter for closed fracture ==

== ENCOUNTER → 2024-07-13 | Outpatient (REF) | payer MEDICARE ==
[2024-07-13 10:13] LABS: HEMATOCRIT 31.8 % (42.0-52.0); HEMOGLOBIN 10.3 g/dl (13.5-17.5); MEAN CORPUSCULAR HEMOGLOBIN 29.4 pg (27.0-33.0); MEAN CORPUSCULAR HGB CONC 32.4 g/dl (32.0-36.5); MEAN CORPUSCULAR VOLUME 90.9 fl (80.0-96.0); PLATELET COUNT, AUTOMATED 262 10^3/uL (150-450)
[2024-07-13 10:18] LABS: ERYTHROCYTE SEDIMENTATION RATE 84 mm/hr (0-20)
[2024-07-13 10:46] LABS: BLOOD UREA NITROGEN 14 MG/DL (9-23); C REACTIVE PROTEIN QUANTITATIV 8.58 MG/DL (<1.0); CALCIUM LEVEL 8.9 MG/DL (8.3-10.6); CARBON DIOXIDE LEVEL 29 MMOL/L (20-31); CHLORIDE LEVEL 102 MMOL/L (98-107); CREATININE FOR GFR 0.85 MG/DL (0.70-1.30); GLOMERULAR FILTRATION RATE > 60.0 (>35); GLUCOSE, FASTING 83 MG/DL (74-106); POTASSIUM SERUM 4.2 MMOL/L (3.5-5.1); SODIUM LEVEL 143 MMOL/L (136-145)
== END ==
PROVIDERS: ATTEND Physician Assistant
DX: M79.672 Pain in left foot (principal)

== ENCOUNTER → 2024-07-20 | Outpatient (REF) | payer MEDICARE ==
[2024-07-20 14:19] LABS: HEMATOCRIT 32.1 % (42.0-52.0); HEMOGLOBIN 10.1 g/dl (13.5-17.5); MEAN CORPUSCULAR HEMOGLOBIN 29.3 pg (27.0-33.0); MEAN CORPUSCULAR HGB CONC 31.5 g/dl (32.0-36.5); PLATELET COUNT, AUTOMATED 250 10^3/uL (150-450); RED BLOOD COUNT 3.45 10^6/uL (4.30-6.10); WHITE BLOOD COUNT 8.7 10^3/uL (4.0-10.0)
[2024-07-20 14:29] LABS: ERYTHROCYTE SEDIMENTATION RATE 80 mm/hr (0-20)
[2024-07-20 14:33] LABS: ALBUMIN 2.5 G/DL (3.2-5.2); ALKALINE PHOSPHATASE 137 U/L (40-129); ALT/SGPT 30 U/L (7.0-40); AST/SGOT 31 U/L (<34); BILIRUBIN,TOTAL 0.2 MG/DL (0.3-1.2); BLOOD UREA NITROGEN 29 MG/DL (9-23); C REACTIVE PROTEIN QUANTITATIV 4.35 MG/DL (<1.0); CALCIUM LEVEL 8.9 MG/DL (8.3-10.6); CARBON DIOXIDE LEVEL 29 MMOL/L (20-31); CHLORIDE LEVEL 103 MMOL/L (98-107); GLOMERULAR FILTRATION RATE > 60.0 (>35); GLUCOSE, FASTING 255 MG/DL (74-106); POTASSIUM SERUM 4.7 MMOL/L (3.5-5.1); SODIUM LEVEL 142 MMOL/L (136-145); TOTAL PROTEIN 6.9 G/DL (5.7-8.2)
[2024-07-20 14:35] LABS: THYROID STIMULATING HORMONE 0.538 uIU/ML (0.55-4.78)
== END ==
PROVIDERS: ATTEND Physician Assistant
DX: L98.499 Non-pressure chronic ulcer of skin of other sites with unspecified severity (principal); Z79.899 Other long term (current) drug therapy

== ENCOUNTER → 2024-07-21 | Outpatient (CLI) | payer MEDICARE | LOC: M SOG 07:58 | PROVIDERS: ATTEND Physician Assistant | DX: Z53.9 Procedure and treatment not carried out, unspecified reason (principal) ==

== ENCOUNTER → 2024-07-24 | Outpatient (REF) | payer MEDICARE ==
[~2024-07-24] MED LIST changes: +GLIP-320 PO; -GLIP10TA18 PO
[2024-07-24 09:15] LABS: BASO # 0.1 10^3/uL (0.0-0.2); BASO % 0.6 % (0.0-1.0); EOS # 0.3 10^3/uL (0.0-0.5); HEMATOCRIT 33.6 % (42.0-52.0); HEMOGLOBIN 10.7 g/dl (13.5-17.5); LYMPH # 1.1 10^3/uL (1.5-5.0); LYMPH % 12.3 % (24.0-44.0); MEAN CORPUSCULAR HEMOGLOBIN 28.8 pg (27.0-33.0); MEAN CORPUSCULAR HGB CONC 31.8 g/dl (32.0-36.5); MEAN CORPUSCULAR VOLUME 90.3 fl (80.0-96.0); MONO # 0.5 10^3/uL (0.0-0.8); MONO % 5.8 % (2.0-8.0); NEUTROPHILS % 77.6 % (36.0-66.0); PLATELET COUNT, AUTOMATED 224 10^3/uL (150-450); RED BLOOD COUNT 3.72 10^6/uL (4.30-6.10)
[2024-07-24 09:30] LABS: ALBUMIN 2.5 G/DL (3.2-5.2); ALKALINE PHOSPHATASE 134 U/L (40-129); ALT/SGPT 24 U/L (7.0-40); AST/SGOT 27 U/L (<34); BILIRUBIN,DIRECT 0.1 MG/DL (<0.4); BILIRUBIN,TOTAL 0.3 MG/DL (0.3-1.2); BLOOD UREA NITROGEN 14 MG/DL (9-23); CARBON DIOXIDE LEVEL 34 MMOL/L (20-31); CHLORIDE LEVEL 102 MMOL/L (98-107); CREATININE FOR GFR 0.84 MG/DL (0.70-1.30); GLOMERULAR FILTRATION RATE > 60.0 (>35); GLUCOSE, FASTING 94 MG/DL (74-106); POTASSIUM SERUM 4.1 MMOL/L (3.5-5.1); SODIUM LEVEL 144 MMOL/L (136-145)
== END ==
PROVIDERS: ATTEND Physician Assistant
DX: M06.9 Rheumatoid arthritis, unspecified (principal)

== ENCOUNTER → 2024-07-25 | Outpatient (REF) | payer MEDICARE | LOC: M SFHCRHEU 14:11 | PROVIDERS: ATTEND Internal Medicine Rheumatology | DX: M05.79 Rheumatoid arthritis with rheumatoid factor of multiple sites without organ or systems involvement (principal); Z79.899 Other long term (current) drug therapy; R53.83 Other fatigue ==

== ENCOUNTER → 2024-07-31 | Outpatient (REF) | payer MEDICARE ==
[2024-07-31 08:49] LABS: BASO % 0.4 % (0.0-1.0); EOS # 0.2 10^3/uL (0.0-0.5); EOS % 2.3 % (0.0-3.0); HEMATOCRIT 34.3 % (42.0-52.0); HEMOGLOBIN 10.8 g/dl (13.5-17.5); LYMPH # 1.2 10^3/uL (1.5-5.0); LYMPH % 12.2 % (24.0-44.0); MEAN CORPUSCULAR HEMOGLOBIN 28.8 pg (27.0-33.0); MEAN CORPUSCULAR HGB CONC 31.5 g/dl (32.0-36.5); MEAN CORPUSCULAR VOLUME 91.5 fl (80.0-96.0); MONO # 0.7 10^3/uL (0.0-0.8); MONO % 6.9 % (2.0-8.0); NEUTROPHILS # 7.7 10^3/uL (1.5-8.5); NEUTROPHILS % 77.5 % (36.0-66.0); PLATELET COUNT, AUTOMATED 199 10^3/uL (150-450); RED BLOOD COUNT 3.75 10^6/uL (4.30-6.10)
[2024-07-31 09:02] LABS: ERYTHROCYTE SEDIMENTATION RATE 110 mm/hr (0-20)
[2024-07-31 09:24] LABS: C REACTIVE PROTEIN QUANTITATIV 17.15 MG/DL (<1.0)
[2024-07-31 09:25] LABS: ALBUMIN 2.4 G/DL (3.2-5.2); ALKALINE PHOSPHATASE 188 U/L (40-129); ALT/SGPT 77 U/L (7.0-40); AST/SGOT 87 U/L (<34); BILIRUBIN,TOTAL 0.3 MG/DL (0.3-1.2); BLOOD UREA NITROGEN 20 MG/DL (9-23); CALCIUM LEVEL 8.8 MG/DL (8.3-10.6); CARBON DIOXIDE LEVEL 32 MMOL/L (20-31); CHLORIDE LEVEL 102 MMOL/L (98-107); CREATININE FOR GFR 0.95 MG/DL (0.70-1.30); GLOMERULAR FILTRATION RATE > 60.0 (>35); GLUCOSE, FASTING 98 MG/DL (74-106); POTASSIUM SERUM 3.7 MMOL/L (3.5-5.1); SODIUM LEVEL 146 MMOL/L (136-145); TOTAL PROTEIN 7.1 G/DL (5.7-8.2)
== END ==
PROVIDERS: ATTEND Physician Assistant
DX: M19.90 Unspecified osteoarthritis, unspecified site (principal); Z79.899 Other long term (current) drug therapy

== ENCOUNTER → 2024-08-01 | Outpatient (REF) | payer MEDICARE | LOC: M SFHCWOUN 16:45 | PROVIDERS: ATTEND Surgery | DX: S91.302A Unspecified open wound, left foot, initial encounter (principal); X58.XXXA Exposure to other specified factors, initial encounter; Y92.9 Unspecified place or not applicable; Y93.9 Activity, unspecified; Y99.9 Unspecified external cause status ==

== ENCOUNTER → 2024-08-02 | Outpatient (REF) | payer MEDICARE ==
[2024-08-02 08:50] LABS: BASO # 0.1 10^3/uL (0.0-0.2); BASO % 0.6 % (0.0-1.0); EOS # 0.3 10^3/uL (0.0-0.5); EOS % 3.1 % (0.0-3.0); HEMATOCRIT 32.8 % (42.0-52.0); HEMOGLOBIN 10.4 g/dl (13.5-17.5); LYMPH % 10.3 % (24.0-44.0); MEAN CORPUSCULAR HEMOGLOBIN 28.3 pg (27.0-33.0); MEAN CORPUSCULAR HGB CONC 31.7 g/dl (32.0-36.5); MEAN CORPUSCULAR VOLUME 89.4 fl (80.0-96.0); MONO # 0.6 10^3/uL (0.0-0.8); MONO % 6.2 % (2.0-8.0); NEUTROPHILS # 7.5 10^3/uL (1.5-8.5); NEUTROPHILS % 78.6 % (36.0-66.0); PLATELET COUNT, AUTOMATED 203 10^3/uL (150-450); RED BLOOD COUNT 3.67 10^6/uL (4.30-6.10); WHITE BLOOD COUNT 9.5 10^3/uL (4.0-10.0)
[2024-08-02 09:02] LABS: ERYTHROCYTE SEDIMENTATION RATE 94 mm/hr (0-20)
[2024-08-02 09:18] LABS: BLOOD UREA NITROGEN 25 MG/DL (9-23); CALCIUM LEVEL 8.7 MG/DL (8.3-10.6); CARBON DIOXIDE LEVEL 33 MMOL/L (20-31); CHLORIDE LEVEL 100 MMOL/L (98-107); CREATININE FOR GFR 0.98 MG/DL (0.70-1.30); GLOMERULAR FILTRATION RATE > 60.0 (>35); GLUCOSE, FASTING 127 MG/DL (74-106); POTASSIUM SERUM 4.2 MMOL/L (3.5-5.1); SODIUM LEVEL 145 MMOL/L (136-145)
== END ==
PROVIDERS: ATTEND Physician Assistant
DX: L72.3 Sebaceous cyst (principal); Z79.899 Other long term (current) drug therapy

== ENCOUNTER → 2024-08-07 | Outpatient (REF) | payer MEDICARE | PROVIDERS: ATTEND Physician Assistant | DX: Z53.8 Procedure and treatment not carried out for other reasons (principal) ==

== ENCOUNTER → 2024-08-09 | Outpatient (REF) | payer MEDICARE ==
[2024-08-09 09:30] LABS: BASO # 0.1 10^3/uL (0.0-0.2); BASO % 0.5 % (0.0-1.0); EOS # 0.2 10^3/uL (0.0-0.5); EOS % 1.6 % (0.0-3.0); HEMATOCRIT 32.8 % (42.0-52.0); HEMOGLOBIN 10.8 g/dl (13.5-17.5); LYMPH # 1.1 10^3/uL (1.5-5.0); LYMPH % 9.1 % (24.0-44.0); MEAN CORPUSCULAR HGB CONC 32.9 g/dl (32.0-36.5); MEAN CORPUSCULAR VOLUME 88.2 fl (80.0-96.0); MONO # 0.6 10^3/uL (0.0-0.8); MONO % 4.8 % (2.0-8.0); NEUTROPHILS # 10.2 10^3/uL (1.5-8.5); PLATELET COUNT, AUTOMATED 285 10^3/uL (150-450); RED BLOOD COUNT 3.72 10^6/uL (4.30-6.10); WHITE BLOOD COUNT 12.3 10^3/uL (4.0-10.0)
[2024-08-09 09:52] LABS: BLOOD UREA NITROGEN 26 MG/DL (9-23); CALCIUM LEVEL 8.8 MG/DL (8.3-10.6); CARBON DIOXIDE LEVEL 34 MMOL/L (20-31); CHLORIDE LEVEL 98 MMOL/L (98-107); CREATININE FOR GFR 0.94 MG/DL (0.70-1.30); GLOMERULAR FILTRATION RATE > 60.0 (>35); GLUCOSE, FASTING 97 MG/DL (74-106); POTASSIUM SERUM 3.7 MMOL/L (3.5-5.1); SODIUM LEVEL 143 MMOL/L (136-145)
[2024-08-09 10:08] LABS: ERYTHROCYTE SEDIMENTATION RATE > 130 mm/hr (0-20)
[2024-08-09 10:15] LABS: C REACTIVE PROTEIN QUANTITATIV 13.17 MG/DL (<1.0)
== END ==
PROVIDERS: ATTEND Physician Assistant
DX: M86.272 Subacute osteomyelitis, left ankle and foot (principal)

== ENCOUNTER → 2024-08-11 | Outpatient (REF) | payer MEDICARE ==
[2024-08-11 07:49] LABS: HEMATOCRIT 36.5 % (42.0-52.0); HEMOGLOBIN 11.9 g/dl (13.5-17.5); MEAN CORPUSCULAR HEMOGLOBIN 28.8 pg (27.0-33.0); MEAN CORPUSCULAR HGB CONC 32.6 g/dl (32.0-36.5); MEAN CORPUSCULAR VOLUME 88.4 fl (80.0-96.0); PLATELET COUNT, AUTOMATED 322 10^3/uL (150-450); RED BLOOD COUNT 4.13 10^6/uL (4.30-6.10)
[2024-08-11 08:05] LABS: ERYTHROCYTE SEDIMENTATION RATE 107 mm/hr (0-20)
[2024-08-11 08:12] LABS: BLOOD UREA NITROGEN 18 MG/DL (9-23); CALCIUM LEVEL 8.9 MG/DL (8.3-10.6); CARBON DIOXIDE LEVEL 34 MMOL/L (20-31); CHLORIDE LEVEL 99 MMOL/L (98-107); CREATININE FOR GFR 1.02 MG/DL (0.70-1.30); GLOMERULAR FILTRATION RATE > 60.0 (>35); GLUCOSE, FASTING 98 MG/DL (74-106); POTASSIUM SERUM 4.4 MMOL/L (3.5-5.1); SODIUM LEVEL 143 MMOL/L (136-145)
[2024-08-11 08:30] LABS: C REACTIVE PROTEIN QUANTITATIV 11.81 MG/DL (<1.0)
== END ==
PROVIDERS: ATTEND Physician Assistant
DX: E11.621 Type 2 diabetes mellitus with foot ulcer (principal); L97.529 Non-pressure chronic ulcer of other part of left foot with unspecified severity

== ENCOUNTER → 2024-08-14 | Outpatient (REF) | payer MEDICARE ==
[2024-08-14 19:24] LABS: HEMATOCRIT 33.3 % (42.0-52.0); HEMOGLOBIN 10.2 g/dl (13.5-17.5); MEAN CORPUSCULAR HEMOGLOBIN 27.9 pg (27.0-33.0); MEAN CORPUSCULAR HGB CONC 30.6 g/dl (32.0-36.5); PLATELET COUNT, AUTOMATED 206 10^3/uL (150-450); RED BLOOD COUNT 3.66 10^6/uL (4.30-6.10)
[2024-08-14 19:36] LABS: ERYTHROCYTE SEDIMENTATION RATE 76 mm/hr (0-20)
[2024-08-14 19:46] LABS: C REACTIVE PROTEIN QUANTITATIV 8.19 MG/DL (<1.0); CALCIUM LEVEL 8.3 MG/DL (8.3-10.6); CREATININE FOR GFR 1.24 MG/DL (0.70-1.30); GLOMERULAR FILTRATION RATE 59.7 (>35); POTASSIUM SERUM 3.5 MMOL/L (3.5-5.1)
== END ==
PROVIDERS: ATTEND Physician Assistant
DX: E11.621 Type 2 diabetes mellitus with foot ulcer (principal); L97.529 Non-pressure chronic ulcer of other part of left foot with unspecified severity

== ENCOUNTER → 2024-08-21 | Outpatient (REF) | payer MEDICARE ==
[2024-08-21 10:32] LABS: HEMATOCRIT 30.4 % (42.0-52.0); HEMOGLOBIN 9.6 g/dl (13.5-17.5); MEAN CORPUSCULAR HEMOGLOBIN 28.7 pg (27.0-33.0); MEAN CORPUSCULAR HGB CONC 31.6 g/dl (32.0-36.5); PLATELET COUNT, AUTOMATED 191 10^3/uL (150-450); RED BLOOD COUNT 3.34 10^6/uL (4.30-6.10); WHITE BLOOD COUNT 8.8 10^3/uL (4.0-10.0)
[2024-08-21 10:49] LABS: ERYTHROCYTE SEDIMENTATION RATE 91 mm/hr (0-20)
[2024-08-21 10:55] LABS: BLOOD UREA NITROGEN 21 MG/DL (9-23); C REACTIVE PROTEIN QUANTITATIV 4.82 MG/DL (<1.0); CALCIUM LEVEL 8.3 MG/DL (8.3-10.6); CARBON DIOXIDE LEVEL 36 MMOL/L (20-31); CHLORIDE LEVEL 101 MMOL/L (98-107); CREATININE FOR GFR 1.15 MG/DL (0.70-1.30); GLOMERULAR FILTRATION RATE > 60.0 (>35); GLUCOSE, FASTING 69 MG/DL (74-106); POTASSIUM SERUM 3.9 MMOL/L (3.5-5.1); SODIUM LEVEL 145 MMOL/L (136-145)
== END ==
PROVIDERS: ATTEND Physician Assistant
DX: E11.621 Type 2 diabetes mellitus with foot ulcer (principal); L97.529 Non-pressure chronic ulcer of other part of left foot with unspecified severity

== ENCOUNTER → 2024-08-24 | Outpatient (CLI) | payer MEDICARE | LOC: M RAD 11:12 | PROVIDERS: ATTEND Surgery | DX: I70.202 Unspecified atherosclerosis of native arteries of extremities, left leg (principal); E11.621 Type 2 diabetes mellitus with foot ulcer; R68.89 Other general symptoms and signs; S91.302A Unspecified open wound, left foot, initial encounter; S81.802A Unspecified open wound, left lower leg, initial encounter; S81.002A Unspecified open wound, left knee, initial encounter; X58.XXXA Exposure to other specified factors, initial encounter; Y92.9 Unspecified place or not applicable; Y93.9 Activity, unspecified; Y99.9 Unspecified external cause status ==

== ENCOUNTER → 2024-08-28 | Outpatient (REF) | payer MEDICARE ==
[~2024-08-28] MED LIST changes: +ACET-839 PO; +ACID1TAB PO; +MIRT-10 PO; +OMEP20TA17 PO
[2024-08-28 08:56] LABS: BASO # 0.1 10^3/uL (0.0-0.2); BASO % 0.8 % (0.0-1.0); EOS # 0.3 10^3/uL (0.0-0.5); EOS % 2.9 % (0.0-3.0); HEMATOCRIT 32.6 % (42.0-52.0); HEMOGLOBIN 10.2 g/dl (13.5-17.5); LYMPH # 1.2 10^3/uL (1.5-5.0); LYMPH % 14.6 % (24.0-44.0); MEAN CORPUSCULAR HEMOGLOBIN 27.9 pg (27.0-33.0); MEAN CORPUSCULAR HGB CONC 31.3 g/dl (32.0-36.5); MEAN CORPUSCULAR VOLUME 89.1 fl (80.0-96.0); MONO # 0.5 10^3/uL (0.0-0.8); MONO % 5.4 % (2.0-8.0); NEUTROPHILS # 6.4 10^3/uL (1.5-8.5); NEUTROPHILS % 75.5 % (36.0-66.0); PLATELET COUNT, AUTOMATED 179 10^3/uL (150-450); RED BLOOD COUNT 3.66 10^6/uL (4.30-6.10); WHITE BLOOD COUNT 8.5 10^3/uL (4.0-10.0)
[2024-08-28 09:23] LABS: ALBUMIN 1.9 G/DL (3.2-5.2); ALKALINE PHOSPHATASE 152 U/L (40-129); ALT/SGPT 36 U/L (7.0-40); AST/SGOT 45 U/L (<34); BILIRUBIN,DIRECT < 0.1 MG/DL (<0.4); BILIRUBIN,TOTAL 0.2 MG/DL (0.3-1.2); BLOOD UREA NITROGEN 23 MG/DL (9-23); CALCIUM LEVEL 8.3 MG/DL (8.3-10.6); CARBON DIOXIDE LEVEL 31 MMOL/L (20-31); CHLORIDE LEVEL 104 MMOL/L (98-107); GLOMERULAR FILTRATION RATE 76.1 (>35); GLUCOSE, FASTING 99 MG/DL (74-106); SODIUM LEVEL 146 MMOL/L (136-145); TOTAL PROTEIN 6.2 G/DL (5.7-8.2)
== END ==
PROVIDERS: ATTEND Physician Assistant
DX: M06.9 Rheumatoid arthritis, unspecified (principal); E11.621 Type 2 diabetes mellitus with foot ulcer; L97.529 Non-pressure chronic ulcer of other part of left foot with unspecified severity

== ENCOUNTER → 2024-09-01 | Outpatient (REF) | payer MEDICARE | PROVIDERS: ATTEND Physician Assistant | DX: E11.621 Type 2 diabetes mellitus with foot ulcer (principal); L97.529 Non-pressure chronic ulcer of other part of left foot with unspecified severity ==

== ENCOUNTER → 2024-09-05 | Outpatient (REF) | payer MEDICARE ==
[~2024-09-05] MED LIST changes: +ASPI81CH33 PO; +ATOR40TA75 PO; +LEVO75TAB PO; +MERO1VIA3 IV
== END ==
PROVIDERS: ATTEND Physician Assistant
DX: E11.621 Type 2 diabetes mellitus with foot ulcer (principal); L97.529 Non-pressure chronic ulcer of other part of left foot with unspecified severity; Z53.8 Procedure and treatment not carried out for other reasons

== ENCOUNTER → 2024-09-06 | Outpatient (REF) ==
[~2024-09-06] MED LIST changes: -BUPR-597 PO; +BUPR-766 PO
[2024-09-06 08:37] LABS: HEMOGLOBIN 9.6 g/dl (13.5-17.5); MEAN CORPUSCULAR HEMOGLOBIN 28.8 pg (27.0-33.0); MEAN CORPUSCULAR VOLUME 90.1 fl (80.0-96.0); PLATELET COUNT, AUTOMATED 184 10^3/uL (150-450); RED BLOOD COUNT 3.33 10^6/uL (4.30-6.10); WHITE BLOOD COUNT 7.7 10^3/uL (4.0-10.0)
[2024-09-06 08:48] LABS: ERYTHROCYTE SEDIMENTATION RATE 76 mm/hr (0-20)
[2024-09-06 09:04] LABS: CALCIUM LEVEL 8.4 MG/DL (8.3-10.6); CREATININE FOR GFR 1.03 MG/DL (0.70-1.30); GLOMERULAR FILTRATION RATE 73.4 (>35); POTASSIUM SERUM 4.3 MMOL/L (3.5-5.1)
[2024-09-06 09:05] LABS: C REACTIVE PROTEIN QUANTITATIV 2.16 MG/DL (<1.0)
== END ==
PROVIDERS: ATTEND Physician Assistant
DX: E78.5 Hyperlipidemia, unspecified (principal)

== ENCOUNTER → 2024-09-11 | Outpatient (REF) ==
[2024-09-11 13:45] LABS: HEMOGLOBIN 8.8 g/dl (13.5-17.5); MEAN CORPUSCULAR HEMOGLOBIN 28.9 pg (27.0-33.0); MEAN CORPUSCULAR HGB CONC 32.6 g/dl (32.0-36.5); MEAN CORPUSCULAR VOLUME 88.5 fl (80.0-96.0); PLATELET COUNT, AUTOMATED 150 10^3/uL (150-450); RED BLOOD COUNT 3.05 10^6/uL (4.30-6.10); WHITE BLOOD COUNT 7.4 10^3/uL (4.0-10.0)
[2024-09-11 13:54] LABS: ERYTHROCYTE SEDIMENTATION RATE 62 mm/hr (0-20)
[2024-09-11 14:08] LABS: ALBUMIN 2.1 G/DL (3.2-5.2); BILIRUBIN,TOTAL 0.4 MG/DL (0.3-1.2); CALCIUM LEVEL 8.4 MG/DL (8.3-10.6); CREATININE FOR GFR 1.04 MG/DL (0.70-1.30); GLOMERULAR FILTRATION RATE 72.6 (>35); POTASSIUM SERUM 4.2 MMOL/L (3.5-5.1); TOTAL PROTEIN 5.7 G/DL (5.7-8.2)
== END ==
PROVIDERS: ATTEND Physician Assistant
DX: M06.9 Rheumatoid arthritis, unspecified (principal)

== ENCOUNTER → 2024-09-13 | Outpatient (REF) ==
[2024-09-13 09:14] LABS: HEMATOCRIT 30.7 % (42.0-52.0); HEMOGLOBIN 9.8 g/dl (13.5-17.5); MEAN CORPUSCULAR HEMOGLOBIN 29.3 pg (27.0-33.0); MEAN CORPUSCULAR HGB CONC 31.9 g/dl (32.0-36.5); MEAN CORPUSCULAR VOLUME 91.6 fl (80.0-96.0); PLATELET COUNT, AUTOMATED 165 10^3/uL (150-450); RED BLOOD COUNT 3.35 10^6/uL (4.30-6.10); WHITE BLOOD COUNT 8.6 10^3/uL (4.0-10.0)
[2024-09-13 09:24] LABS: ERYTHROCYTE SEDIMENTATION RATE 59 mm/hr (0-20)
[2024-09-13 09:39] LABS: C REACTIVE PROTEIN QUANTITATIV 0.57 MG/DL (<1.0)
[2024-09-13 09:40] LABS: CALCIUM LEVEL 8.2 MG/DL (8.3-10.6); CREATININE FOR GFR 1.15 MG/DL (0.70-1.30); GLOMERULAR FILTRATION RATE 64.3 (>35); POTASSIUM SERUM 4.3 MMOL/L (3.5-5.1)
== END ==
PROVIDERS: ATTEND Physician Assistant
DX: E78.5 Hyperlipidemia, unspecified (principal)

== ENCOUNTER → 2024-09-14 | Outpatient (CLI) | payer MEDICARE | LOC: M SOG 07:49 | PROVIDERS: ATTEND Physician Assistant | DX: S72.141D Displaced intertrochanteric fracture of right femur, subsequent encounter for closed fracture with routine healing (principal) ==

== ENCOUNTER → 2024-09-18 | Outpatient (REF) ==
[2024-09-18 09:39] LABS: BASO # 0.1 10^3/uL (0.0-0.2); BASO % 0.6 % (0.0-1.0); EOS # 0.9 10^3/uL (0.0-0.5); EOS % 9.2 % (0.0-3.0); HEMATOCRIT 31.6 % (42.0-52.0); LYMPH # 1.2 10^3/uL (1.5-5.0); LYMPH % 12.5 % (24.0-44.0); MEAN CORPUSCULAR HEMOGLOBIN 29.2 pg (27.0-33.0); MEAN CORPUSCULAR HGB CONC 31.6 g/dl (32.0-36.5); MEAN CORPUSCULAR VOLUME 92.4 fl (80.0-96.0); MONO # 0.4 10^3/uL (0.0-0.8); MONO % 4.5 % (2.0-8.0); NEUTROPHILS # 6.9 10^3/uL (1.5-8.5); NEUTROPHILS % 72.7 % (36.0-66.0); PLATELET COUNT, AUTOMATED 152 10^3/uL (150-450); RED BLOOD COUNT 3.42 10^6/uL (4.30-6.10); WHITE BLOOD COUNT 9.5 10^3/uL (4.0-10.0)
[2024-09-18 09:50] LABS: ERYTHROCYTE SEDIMENTATION RATE 96 mm/hr (0-20)
[2024-09-18 10:04] LABS: ALBUMIN 2.3 G/DL (3.2-5.2); BILIRUBIN,DIRECT 0.2 MG/DL (<0.4); BILIRUBIN,TOTAL 0.4 MG/DL (0.3-1.2); CALCIUM LEVEL 8.6 MG/DL (8.3-10.6); CREATININE FOR GFR 0.91 MG/DL (0.70-1.30); GLOMERULAR FILTRATION RATE 85.2 (>35); POTASSIUM SERUM 4.4 MMOL/L (3.5-5.1)
[2024-09-18 10:30] LABS: C REACTIVE PROTEIN QUANTITATIV 19.55 MG/DL (<1.0)
== END ==
PROVIDERS: ATTEND Physician Assistant
DX: E78.5 Hyperlipidemia, unspecified (principal); M06.9 Rheumatoid arthritis, unspecified

== ENCOUNTER → 2024-09-25 | Outpatient (REF) ==
[~2024-09-25] MED LIST changes: +ZYPR2.5T2 PO
[2024-09-25 08:19] LABS: BASO # 0.1 10^3/uL (0.0-0.2); EOS # 0.6 10^3/uL (0.0-0.5); EOS % 8.8 % (0.0-3.0); HEMATOCRIT 30.5 % (42.0-52.0); HEMOGLOBIN 9.8 g/dl (13.5-17.5); LYMPH # 1.5 10^3/uL (1.5-5.0); LYMPH % 24.5 % (24.0-44.0); MEAN CORPUSCULAR HGB CONC 32.1 g/dl (32.0-36.5); MEAN CORPUSCULAR VOLUME 90.2 fl (80.0-96.0); MONO # 0.5 10^3/uL (0.0-0.8); MONO % 7.2 % (2.0-8.0); NEUTROPHILS # 3.5 10^3/uL (1.5-8.5); PLATELET COUNT, AUTOMATED 209 10^3/uL (150-450); RED BLOOD COUNT 3.38 10^6/uL (4.30-6.10); WHITE BLOOD COUNT 6.3 10^3/uL (4.0-10.0)
[2024-09-25 08:49] LABS: ERYTHROCYTE SEDIMENTATION RATE 51 mm/hr (0-20)
[2024-09-25 08:51] LABS: C REACTIVE PROTEIN QUANTITATIV 1.07 MG/DL (<1.0); CALCIUM LEVEL 8.6 MG/DL (8.3-10.6); CREATININE FOR GFR 1.08 MG/DL (0.70-1.30); GLOMERULAR FILTRATION RATE 69.4 (>35); POTASSIUM SERUM 4.2 MMOL/L (3.5-5.1)
== END ==
PROVIDERS: ATTEND Physician Assistant
DX: M86.8X7 Other osteomyelitis, ankle and foot (principal)

== ENCOUNTER → 2024-09-27 | Outpatient (POV) | payer MEDICARE ==
[~2024-09-27] VITALS: Ht 172.7 cm; Wt 64.0 kg
[2024-09-27 09:40] VITALS: BP 118/62; O2SAT 98
== END ==
LOC: M IRPOV 08:30
PROVIDERS: ATTEND Radiology Diagnostic Radiology
DX: Z48.812 Encounter for surgical aftercare following surgery on the circulatory system (principal); Z79.01 Long term (current) use of anticoagulants; Z79.82 Long term (current) use of aspirin; Z88.0 Allergy status to penicillin; Z88.5 Allergy status to narcotic agent; Z89.422 Acquired absence of other left toe(s); M86.662 Other chronic osteomyelitis, left tibia and fibula; I70.212 Atherosclerosis of native arteries of extremities with intermittent claudication, left leg
CPT/HCPCS: 93926; G0463

== ENCOUNTER → 2024-09-27 | Outpatient (CLI) | payer MEDICARE | LOC: M RAD 08:27 | PROVIDERS: ATTEND Radiology Diagnostic Radiology | DX: M86.662 Other chronic osteomyelitis, left tibia and fibula (principal); I70.212 Atherosclerosis of native arteries of extremities with intermittent claudication, left leg ==

== ENCOUNTER → 2024-11-13 | Outpatient (REF) | payer MEDICARE ==
[2024-11-13 08:44] LABS: BASO # 0.1 10^3/uL (0.0-0.2); BASO % 0.7 % (0.0-1.0); EOS # 1.1 10^3/uL (0.0-0.5); EOS % 11.7 % (0.0-3.0); HEMATOCRIT 34.1 % (42.0-52.0); HEMOGLOBIN 10.8 g/dl (13.5-17.5); LYMPH % 22.1 % (24.0-44.0); MEAN CORPUSCULAR HEMOGLOBIN 28.4 pg (27.0-33.0); MEAN CORPUSCULAR HGB CONC 31.7 g/dl (32.0-36.5); MEAN CORPUSCULAR VOLUME 89.7 fl (80.0-96.0); MONO # 0.5 10^3/uL (0.0-0.8); MONO % 5.3 % (2.0-8.0); NEUTROPHILS # 5.4 10^3/uL (1.5-8.5); NEUTROPHILS % 59.5 % (36.0-66.0); PLATELET COUNT, AUTOMATED 151 10^3/uL (150-450)
[2024-11-13 08:49] LABS: ERYTHROCYTE SEDIMENTATION RATE 81 mm/hr (0-20)
[2024-11-13 09:11] LABS: C REACTIVE PROTEIN QUANTITATIV < 0.50 MG/DL (<1.0)
[2024-11-13 09:12] LABS: ALBUMIN 2.9 G/DL (3.2-5.2); ALKALINE PHOSPHATASE 97 U/L (40-129); ALT/SGPT 55 U/L (7.0-40); AST/SGOT 38 U/L (<34); BILIRUBIN,TOTAL 0.3 MG/DL (0.3-1.2); BLOOD UREA NITROGEN 32 MG/DL (9-23); CALCIUM LEVEL 9.8 MG/DL (8.3-10.6); CARBON DIOXIDE LEVEL 31 MMOL/L (20-31); CHLORIDE LEVEL 105 MMOL/L (98-107); CREATININE FOR GFR 1.16 MG/DL (0.70-1.30); GLOMERULAR FILTRATION RATE 63.7 (>35); GLUCOSE, FASTING 140 MG/DL (74-106); POTASSIUM SERUM 4.8 MMOL/L (3.5-5.1); SODIUM LEVEL 147 MMOL/L (136-145); TOTAL PROTEIN 7.2 G/DL (5.7-8.2)
== END ==
PROVIDERS: ATTEND Physician Assistant
DX: M06.9 Rheumatoid arthritis, unspecified (principal)

== ENCOUNTER → 2024-11-27 | Outpatient (REF) | payer MEDICARE ==
[2024-11-27 08:53] LABS: PLATELET COUNT, AUTOMATED 150 10^3/uL (150-450)
[2024-11-27 09:01] LABS: ERYTHROCYTE SEDIMENTATION RATE 61 mm/hr (0-20)
[2024-11-27 09:25] LABS: C REACTIVE PROTEIN QUANTITATIV < 0.50 MG/DL (<1.0); CALCIUM LEVEL 9.3 MG/DL (8.3-10.6); CARBON DIOXIDE LEVEL 29 MMOL/L (20-31); CHLORIDE LEVEL 100 MMOL/L (98-107); CREATININE FOR GFR 1.17 MG/DL (0.70-1.30); GLOMERULAR FILTRATION RATE 63.0 (>35); POTASSIUM SERUM 4.5 MMOL/L (3.5-5.1); SODIUM LEVEL 140 MMOL/L (136-145)
== END ==
PROVIDERS: ATTEND Physician Assistant
DX: M86.8X7 Other osteomyelitis, ankle and foot (principal)

== ENCOUNTER → 2024-12-25 | Outpatient (REF) | payer MEDICARE ==
[~2024-12-25] MED LIST changes: +SENN-225 PO; -SENO8.6T5 PO
[2024-12-25 11:08] LABS: BASO # 0.0 10^3/uL (0.0-0.2); BASO % 0.5 % (0.0-1.0); EOS # 0.4 10^3/uL (0.0-0.5); EOS % 5.2 % (0.0-3.0); LYMPH # 1.3 10^3/uL (1.5-5.0); LYMPH % 16.6 % (24.0-44.0); MONO # 0.4 10^3/uL (0.0-0.8); MONO % 5.2 % (2.0-8.0); NEUTROPHILS # 5.6 10^3/uL (1.5-8.5); NEUTROPHILS % 71.9 % (36.0-66.0); PLATELET COUNT, AUTOMATED 121 10^3/uL (150-450)
[2024-12-25 11:31] LABS: ALT/SGPT 75.0 U/L (7.0-40); AST/SGOT 45.0 U/L (<34); CALCIUM LEVEL 9.1 MG/DL (8.3-10.6); CARBON DIOXIDE LEVEL 28.0 MMOL/L (20-31); CHLORIDE LEVEL 101.0 MMOL/L (98-107); CREATININE FOR GFR 1.17 MG/DL (0.70-1.30); GLOMERULAR FILTRATION RATE 63.0 (>35); POTASSIUM SERUM 4.7 MMOL/L (3.5-5.1); SODIUM LEVEL 140.0 MMOL/L (136-145)
== END ==
PROVIDERS: ATTEND Physician Assistant
DX: M06.9 Rheumatoid arthritis, unspecified (principal)

== ENCOUNTER 2025-01-18 20:19 | Inpatient (IN) | payer MEDICARE ==
[~2025-01-18] VITALS: Ht 160 cm; Wt 64.6 kg
[2025-01-18] MEDS ORDERED: LABETALOL 100 MG/20 ML VIAL IV PRN (22:20)
[2025-01-18 22:21] LABS: BASO # 0.0 10^3/uL (0.0-0.2); BASO % 0.7 % (0.0-1.0); EOS # 0.3 10^3/uL (0.0-0.5); EOS % 4.9 % (0.0-3.0); LYMPH # 1.2 10^3/uL (1.5-5.0); LYMPH % 19.9 % (24.0-44.0); MONO # 0.4 10^3/uL (0.0-0.8); MONO % 6.7 % (2.0-8.0); NEUTROPHILS # 4.1 10^3/uL (1.5-8.5); NEUTROPHILS % 67.3 % (36.0-66.0); PLATELET COUNT, AUTOMATED 113 10^3/uL (150-450)
[2025-01-18] MEDS: FACTOR XA,INACTIVATED-ZHZO 400 MG in APPROPRIATE DILUENT 40 ML IV ONE (22:40)
[2025-01-18 22:46] LABS: CALCIUM LEVEL 9.3 MG/DL (8.3-10.6); CARBON DIOXIDE LEVEL 29.0 MMOL/L (20-31); CHLORIDE LEVEL 112.0 MMOL/L (98-107); CREATININE FOR GFR 1.44 MG/DL (0.70-1.30); GLOMERULAR FILTRATION RATE 49.1 (>35); POTASSIUM SERUM 4.5 MMOL/L (3.5-5.1); SODIUM LEVEL 152.0 MMOL/L (136-145)
[2025-01-18 22:51] LABS: INR 1.08
[2025-01-18] MEDS: FACTOR XA,INACTIVATED-ZHZO 480 MG in APPROPRIATE DILUENT 48 ML IV ONE (22:55)
[2025-01-18] MEDS: NS (Normal Saline) 0.9% 1,000 ML IV SCH (23:01)
[2025-01-19] VITALS (23 sets, daily range): BP systolic 109–180; BP diastolic 56–100; TEMP 97–98.1; O2SAT 92–99
[2025-01-19 05:41] LABS: BASO # 0.0 10^3/uL (0.0-0.2); BASO % 0.4 % (0.0-1.0); EOS # 0.4 10^3/uL (0.0-0.5); EOS % 5.5 % (0.0-3.0); LYMPH # 1.7 10^3/uL (1.5-5.0); LYMPH % 23.7 % (24.0-44.0); MONO # 0.6 10^3/uL (0.0-0.8); MONO % 8.0 % (2.0-8.0); NEUTROPHILS # 4.4 10^3/uL (1.5-8.5); NEUTROPHILS % 62.1 % (36.0-66.0); PLATELET COUNT, AUTOMATED 125 10^3/uL (150-450)
[2025-01-19 06:01] LABS: ESTIMATED AVERAGE GLUCOSE 226.0 MG/DL (60-110)
[2025-01-19 06:06] LABS: CALCIUM LEVEL 9.1 MG/DL (8.3-10.6); CARBON DIOXIDE LEVEL 30.0 MMOL/L (20-31); CHLORIDE LEVEL 112.0 MMOL/L (98-107); CHOLESTEROL LEVEL 125.0 MG/DL (<200); CHOLESTEROL RISK RATIO 2.88 (<5); CREATININE FOR GFR 1.33 MG/DL (0.70-1.30); GLOMERULAR FILTRATION RATE 54.0 (>35); LDL CHOLESTEROL 54.6 MG/DL (<100); NON-HDL-C 81.6 MG/DL; POTASSIUM SERUM 4.2 MMOL/L (3.5-5.1); SODIUM LEVEL 151.0 MMOL/L (136-145); TRIGLYCERIDES LEVEL 135.0 MG/DL (<150)
[2025-01-19] MEDS: INSULIN LISPRO (NovoLOG) PER UNIT SC SCH ×2 (07:30→20:06)
[2025-01-19] MEDS: PANTOPRAZOLE 40MG VIAL IV SCH (09:43)
[2025-01-19] MEDS: amLODIPine 10 MG TAB PO SCH (09:44)
[2025-01-19] MEDS ORDERED: ACET-907 PO (10:01)
[2025-01-19] MEDS ORDERED: MILKSUS3 PO (10:01)
[2025-01-19] MEDS ORDERED: ATOR40TA75 PO (10:01)
[2025-01-19] MEDS ORDERED: FLEEENE12 PR (10:01)
[2025-01-19] MEDS ORDERED: ASPI81CH33 PO (10:01)
[2025-01-19] MEDS ORDERED: ELIQ2.5T PO (10:01)
[2025-01-19] MEDS ORDERED: TRUL10IN SC (10:01)
[2025-01-19] MEDS ORDERED: BISA10SU4 PR (10:01)
[2025-01-19] MEDS ORDERED: DIVA1TAB48 PO (10:01)
[2025-01-19] MEDS ORDERED: REXU1TAB4 PO (10:01)
[2025-01-19] MEDS ORDERED: SITA50TAB PO (10:01)
[2025-01-19] MEDS ORDERED: DOCU100C16 PO (10:01)
[2025-01-19] MEDS ORDERED: HOME MED LIST COMPLETE! XX SCH (10:05)
[2025-01-19] MEDS ORDERED: ACETAMINOPHEN 500 MG TAB PO PRN (12:30)
[2025-01-20] VITALS (10 sets, daily range): BP systolic 106–136; BP diastolic 58–72; TEMP 97.5–98.3; O2SAT 96–99
[2025-01-20 00:40] LABS: CALCIUM LEVEL 8.8 MG/DL (8.3-10.6); CARBON DIOXIDE LEVEL 28.0 MMOL/L (20-31); CHLORIDE LEVEL 110.0 MMOL/L (98-107); CREATININE FOR GFR 1.4 MG/DL (0.70-1.30); GLOMERULAR FILTRATION RATE 50.8 (>35); POTASSIUM SERUM 4.0 MMOL/L (3.5-5.1); SODIUM LEVEL 147.0 MMOL/L (136-145)
[2025-01-20] MEDS ORDERED: DEXTROSE 50% 50 ML SYRINGE IV PRN (02:30)
[2025-01-20] MEDS ORDERED: GLUCOSE 4 GM CHEW PO PRN (02:30)
[2025-01-20] MEDS ORDERED: GLUCAGON INJ 1 MG VIAL SC PRN (02:30)
[2025-01-20] MEDS: NS (Normal Saline) 0.9% 1,000 ML IV SCH (02:53)
[2025-01-20 07:54] LABS: PLATELET COUNT, AUTOMATED 129 10^3/uL (150-450)
[2025-01-20 08:22] LABS: ALT/SGPT 37.0 U/L (7.0-40); AST/SGOT 38.0 U/L (<34); CALCIUM LEVEL 9.3 MG/DL (8.3-10.6); CARBON DIOXIDE LEVEL 27.0 MMOL/L (20-31); CHLORIDE LEVEL 109.0 MMOL/L (98-107); CREATININE FOR GFR 1.33 MG/DL (0.70-1.30); GLOMERULAR FILTRATION RATE 54.0 (>35); POTASSIUM SERUM 4.2 MMOL/L (3.5-5.1); SODIUM LEVEL 147.0 MMOL/L (136-145)
[2025-01-20] MEDS: HEPARIN SOD 5000 UNITS/ML 1 ML VIAL/SYRINGE SQ SCH (10:20)
[2025-01-20] MEDS: amLODIPine 5 MG TAB PO SCH (10:20)
[2025-01-21 04:00] VITALS: BP 127/65; TEMP 97.6; O2SAT 97
[2025-01-21 04:34] LABS: PLATELET COUNT, AUTOMATED 123 10^3/uL (150-450)
[2025-01-21 04:59] LABS: CALCIUM LEVEL 9.2 MG/DL (8.3-10.6); CARBON DIOXIDE LEVEL 28.0 MMOL/L (20-31); CHLORIDE LEVEL 109.0 MMOL/L (98-107); CREATININE FOR GFR 1.4 MG/DL (0.70-1.30); GLOMERULAR FILTRATION RATE 50.8 (>35); MAGNESIUM LEVEL 1.9 MG/DL (1.8-2.4); POTASSIUM SERUM 4.2 MMOL/L (3.5-5.1); SODIUM LEVEL 147.0 MMOL/L (136-145)
[2025-01-21 07:53] VITALS: BP 147/65; TEMP 98.6; O2SAT 97
[2025-01-21 16:01] VITALS: BP 126/61; TEMP 97.1; O2SAT 99
[2025-01-21 19:22] VITALS: BP 123/60; TEMP 97.7; O2SAT 99
[2025-01-22 04:00] VITALS: BP 133/68; TEMP 97.9; O2SAT 97
[2025-01-22 05:40] LABS: PLATELET COUNT, AUTOMATED 121 10^3/uL (150-450)
[2025-01-22 06:03] LABS: CALCIUM LEVEL 9.8 MG/DL (8.3-10.6); CARBON DIOXIDE LEVEL 30.0 MMOL/L (20-31); CHLORIDE LEVEL 106.0 MMOL/L (98-107); CREATININE FOR GFR 1.31 MG/DL (0.70-1.30); GLOMERULAR FILTRATION RATE 55.0 (>35); MAGNESIUM LEVEL 1.8 MG/DL (1.8-2.4); POTASSIUM SERUM 4.2 MMOL/L (3.5-5.1); SODIUM LEVEL 145.0 MMOL/L (136-145)
[2025-01-22 08:45] VITALS: BP 122/59; TEMP 98.3; O2SAT 98
[2025-01-22 09:18] VITALS: BP 122/59
[2025-01-22] MEDS ORDERED: AMLO1TAB24 PO (10:06)
== END 2025-01-22 12:30 | DRG 86 ==
LOC: M ED 20:19 → M ED INP 22:20 → M ICU 01-19 00:33
PROVIDERS: ADMIT Student in an Organized Health Care Education/Training Program; ATTEND Family Medicine
DX: S06.5X0A Traumatic subdural hemorrhage without loss of consciousness, initial encounter (principal); I69.351 Hemiplegia and hemiparesis following cerebral infarction affecting right dominant side; E87.0 Hyperosmolality and hypernatremia; W05.0XXA Fall from non-moving wheelchair, initial encounter; Y92.129 Unspecified place in nursing home as the place of occurrence of the external cause; Y93.9 Activity, unspecified; Y99.8 Other external cause status; E11.65 Type 2 diabetes mellitus with hyperglycemia; I12.9 Hypertensive chronic kidney disease with stage 1 through stage 4 chronic kidney disease, or unspecified chronic kidney disease; E78.5 Hyperlipidemia, unspecified; K21.9 Gastro-esophageal reflux disease without esophagitis; K22.70 Barrett's esophagus without dysplasia; F03.90 Unspecified dementia, unspecified severity, without behavioral disturbance, psychotic disturbance, mood disturbance, and anxiety; Z66 Do not resuscitate; D69.6 Thrombocytopenia, unspecified; D64.9 Anemia, unspecified; S01.01XA Laceration without foreign body of scalp, initial encounter; R41.0 Disorientation, unspecified; N18.31 Chronic kidney disease, stage 3a; E11.22 Type 2 diabetes mellitus with diabetic chronic kidney disease; Z79.899 Other long term (current) drug therapy; Z79.01 Long term (current) use of anticoagulants; Z87.442 Personal history of urinary calculi; Z88.0 Allergy status to penicillin; Z88.5 Allergy status to narcotic agent; Z89.411 Acquired absence of right great toe; Z89.421 Acquired absence of other right toe(s); Z85.46 Personal history of malignant neoplasm of prostate

== ENCOUNTER 2025-01-24 11:10 | Emergency (ER) | payer MEDICARE ==
[~2025-01-24] VITALS: Ht 177.8 cm; Wt 64.5 kg
[~2025-01-24 11:10] MED LIST changes: +ACET-907 PO; +AMLO1TAB24 PO; +BISA10SU4 PR; +DIVA1TAB48 PO; +DOCU100C16 PO; +ELIQ2.5T PO; +FLEEENE12 PR; +MILKSUS3 PO; +REXU1TAB4 PO; +SITA50TAB PO; +TRUL10IN SC
[2025-01-24 12:01] LABS: VENOUS BASE EXCESS 1.6 (-2.0-2.0); VENOUS HCO3 29.4 MMOL/L (23.0-27.0); VENOUS O2 SATURATION 62.4 % (60.0-80.0); VENOUS PARTIAL PRESSURE CO2 61.2 mmHg (38.0-50.0); VENOUS PARTIAL PRESSURE O2 35.8 mmHg (30.0-50.0); VENOUS PH 7.300 UNITS (7.330-7.430); VENOUS STANDARD HCO3 25.1 MMOL/L; VENOUS TOTAL CO2 31.3 MMOL/L (24.0-28.0)
[2025-01-24 12:07] LABS: BASO # 0.1 10^3/uL (0.0-0.2); BASO % 0.7 % (0.0-1.0); EOS # 0.5 10^3/uL (0.0-0.5); EOS % 5.3 % (0.0-3.0); LYMPH # 1.8 10^3/uL (1.5-5.0); LYMPH % 19.1 % (24.0-44.0); MONO # 0.7 10^3/uL (0.0-0.8); MONO % 7.7 % (2.0-8.0); NEUTROPHILS # 6.1 10^3/uL (1.5-8.5); NEUTROPHILS % 66.4 % (36.0-66.0); PLATELET COUNT, AUTOMATED 158 10^3/uL (150-450)
[2025-01-24 12:27] LABS: OSMOLALITY SERUM 322 MOSM/KG (280-301)
[2025-01-24 12:38] LABS: ALT/SGPT 59 U/L (7.0-40); AST/SGOT 61 U/L (<34); CALCIUM LEVEL 9.8 MG/DL (8.3-10.6); CARBON DIOXIDE LEVEL 29 MMOL/L (20-31); CHLORIDE LEVEL 107 MMOL/L (98-107); CREATININE FOR GFR 1.21 MG/DL (0.70-1.30); GLOMERULAR FILTRATION RATE 60.5 (>35); POTASSIUM SERUM 5.3 MMOL/L (3.5-5.1); SODIUM LEVEL 146 MMOL/L (136-145)
[2025-01-24] MEDS ORDERED: AQUAOIN2 TOP (12:38)
[2025-01-24] MEDS ORDERED: AMLO1TAB24 PO (12:38)
[2025-01-24] MEDS ORDERED: HOME MED LIST COMPLETE! XX SCH (12:40)
[2025-01-24] MEDS: LIDOCAINE 2% 5 ML JELLY UROJET TOP ONE (13:24)
[2025-01-24 13:42] LABS: KETONE, URINE AUTO RFX NEGATIVE (NEGATIVE); NITRITE, URINE AUTO RFX NEGATIVE (NEGATIVE); RBC, URINE AUTO RFX 45 /HPF (0-3); SQUAM EPITHELIAL CELL UR AURFX 0 /HPF (0-6)
[2025-01-24 13:45] LABS: LEUKOCYTE ESTERASE UR AUTO RFX 2+ (NEGATIVE)
[2025-01-24 13:46] LABS: WBC, URINE AUTO RFX 16 /HPF (0-3)
[2025-01-24] MEDS: cefTRIAXone SOD 1 GM in DEXTROSE 5% (D5W) ADV/MINI-BAG 50 ML IV ONE (14:32)
[2025-01-24 15:48] VITALS: BP 124/71; TEMP 98.2
[2025-01-24 15:49] VITALS: O2SAT 99
== END 2025-01-24 15:57 | disposition short-term general hospital (02) ==
LOC: M ED 11:10 → EDBD 11:10 → M ED 15:57
DX: S06.5X0A Traumatic subdural hemorrhage without loss of consciousness, initial encounter (principal); Y92.9 Unspecified place or not applicable; Y93.9 Activity, unspecified; Y99.9 Unspecified external cause status; W19.XXXA Unspecified fall, initial encounter; N39.0 Urinary tract infection, site not specified; I10 Essential (primary) hypertension; E78.5 Hyperlipidemia, unspecified; K21.9 Gastro-esophageal reflux disease without esophagitis; Z88.0 Allergy status to penicillin; Z88.5 Allergy status to narcotic agent; Z79.1 Long term (current) use of non-steroidal anti-inflammatories (NSAID); Z79.899 Other long term (current) drug therapy
CPT/HCPCS: 36415; 51701; 70450; 71045; 80048; 80076; 81001; 82140; 82803; 83605; 83930; 83935; 84145; 84443; 85025; 87040; 87077; 87086; 87154; 87186; 87486; 87581; 87633; 87798; 93005; 93041; 94760; 99285; J0696

== ENCOUNTER → 2025-01-26 | Outpatient (REF) ==
[~2025-01-26] MED LIST changes: +AQUAOIN2 TOP
== END ==
PROVIDERS: ATTEND Physician Assistant
DX: M06.9 Rheumatoid arthritis, unspecified (principal); Z53.8 Procedure and treatment not carried out for other reasons

== ENCOUNTER → 2025-02-07 | Outpatient (REF) ==
[2025-02-07 13:29] LABS: BASO # 0.1 10^3/uL (0.0-0.2); BASO % 1.2 % (0.0-1.0); EOS # 0.4 10^3/uL (0.0-0.5); EOS % 5.2 % (0.0-3.0); LYMPH # 1.4 10^3/uL (1.5-5.0); LYMPH % 19.9 % (24.0-44.0); MONO # 0.4 10^3/uL (0.0-0.8); MONO % 6.1 % (2.0-8.0); NEUTROPHILS # 4.7 10^3/uL (1.5-8.5); NEUTROPHILS % 67.0 % (36.0-66.0); PLATELET COUNT, AUTOMATED 151 10^3/uL (150-450)
[2025-02-07 13:35] LABS: ERYTHROCYTE SEDIMENTATION RATE 64 mm/hr (0-20)
[2025-02-07 14:00] LABS: C REACTIVE PROTEIN QUANTITATIV 0.52 MG/DL (<1.0)
[2025-02-07 14:01] LABS: ALT/SGPT 25 U/L (7.0-40); AST/SGOT 28 U/L (<34); CALCIUM LEVEL 9.2 MG/DL (8.3-10.6); CARBON DIOXIDE LEVEL 28 MMOL/L (20-31); CHLORIDE LEVEL 103 MMOL/L (98-107); CREATININE FOR GFR 1.40 MG/DL (0.70-1.30); GLOMERULAR FILTRATION RATE 50.8 (>35); POTASSIUM SERUM 4.3 MMOL/L (3.5-5.1); SODIUM LEVEL 140 MMOL/L (136-145)
== END ==
PROVIDERS: ATTEND Physician Assistant
DX: I10 Essential (primary) hypertension (principal)

== ENCOUNTER → 2025-02-07 | Outpatient (REF) | PROVIDERS: ATTEND Physician Assistant | DX: M06.9 Rheumatoid arthritis, unspecified (principal); Z53.8 Procedure and treatment not carried out for other reasons ==

== ENCOUNTER → 2025-02-14 | Outpatient (REF) ==
[2025-02-14 11:20] LABS: BASO # 0.1 10^3/uL (0.0-0.2); BASO % 0.9 % (0.0-1.0); EOS # 0.4 10^3/uL (0.0-0.5); EOS % 5.8 % (0.0-3.0); LYMPH # 1.1 10^3/uL (1.5-5.0); LYMPH % 17.1 % (24.0-44.0); MONO # 0.4 10^3/uL (0.0-0.8); MONO % 5.8 % (2.0-8.0); NEUTROPHILS # 4.5 10^3/uL (1.5-8.5); NEUTROPHILS % 69.8 % (36.0-66.0); PLATELET COUNT, AUTOMATED 145 10^3/uL (150-450)
[2025-02-14 11:36] LABS: ERYTHROCYTE SEDIMENTATION RATE 63 mm/hr (0-20)
[2025-02-14 12:10] LABS: ALT/SGPT 42 U/L (7.0-40); AST/SGOT 48 U/L (<34); C REACTIVE PROTEIN QUANTITATIV < 0.50 MG/DL (<1.0); CALCIUM LEVEL 8.6 MG/DL (8.3-10.6); CARBON DIOXIDE LEVEL 25 MMOL/L (20-31); CHLORIDE LEVEL 104 MMOL/L (98-107); CREATININE FOR GFR 1.10 MG/DL (0.70-1.30); GLOMERULAR FILTRATION RATE 67.4 (>35); POTASSIUM SERUM 4.1 MMOL/L (3.5-5.1); SODIUM LEVEL 137 MMOL/L (136-145)
== END ==
PROVIDERS: ATTEND Physician Assistant
DX: I10 Essential (primary) hypertension (principal)

== ENCOUNTER → 2025-02-19 | Outpatient (CLI) | payer MEDICAID, MEDICARE ==
[~2025-02-19] MED LIST changes: +ASPI-527 PO
== END ==
LOC: M PLAIMG 09:54
PROVIDERS: ATTEND Neurological Surgery
DX: D18.1 Lymphangioma, any site (principal)

== ENCOUNTER 2025-03-04 14:40 | Emergency (ER) | payer MEDICARE, MEDICAID ==
[~2025-03-04] VITALS: Ht 177.8 cm; Wt 64.5 kg
[~2025-03-04 14:40] MED LIST changes: -ASPI-527 PO
[2025-03-04] MEDS ORDERED: ASPI-527 PO (16:26)
[2025-03-04] MEDS ORDERED: HOME MED LIST COMPLETE! XX SCH (16:30)
[2025-03-04 17:00] VITALS: BP 168/100; TEMP 97.6; O2SAT 98
== END 2025-03-04 17:23 | disposition home or self-care (01) ==
LOC: M ED 14:40
DX: S61.411A Laceration without foreign body of right hand, initial encounter (principal); S00.01XA Abrasion of scalp, initial encounter; Y92.410 Unspecified street and highway as the place of occurrence of the external cause; Y93.9 Activity, unspecified; Y99.9 Unspecified external cause status; W01.0XXA Fall on same level from slipping, tripping and stumbling without subsequent striking against object, initial encounter; I12.0 Hypertensive chronic kidney disease with stage 5 chronic kidney disease or end stage renal disease; E11.9 Type 2 diabetes mellitus without complications; E78.5 Hyperlipidemia, unspecified

== ENCOUNTER → 2025-03-26 | Outpatient (REF) | payer MEDICARE, MEDICAID ==
[~2025-03-26] MED LIST changes: +ASPI-527 PO; -ROSU10TA61 PO; +ROSU10TA90 PO
== END ==
PROVIDERS: ATTEND Physician Assistant
DX: I51.7 Cardiomegaly (principal); J98.4 Other disorders of lung; R05.9 Cough, unspecified

== ENCOUNTER → 2025-03-26 | Outpatient (REF) | payer MEDICARE, MEDICAID | PROVIDERS: ATTEND Physician Assistant | DX: R05.9 Cough, unspecified (principal) ==

== ENCOUNTER → 2025-03-28 | Outpatient (REF) | payer MEDICAID, MEDICARE ==
[2025-03-28 10:56] LABS: BASO # 0.1 10^3/uL (0.0-0.2); BASO % 0.7 % (0.0-1.0); EOS # 0.4 10^3/uL (0.0-0.5); EOS % 4.5 % (0.0-3.0); LYMPH # 1.3 10^3/uL (1.5-5.0); LYMPH % 15.3 % (24.0-44.0); MONO # 0.5 10^3/uL (0.0-0.8); MONO % 6.1 % (2.0-8.0); NEUTROPHILS # 6.3 10^3/uL (1.5-8.5); NEUTROPHILS % 72.9 % (36.0-66.0); PLATELET COUNT, AUTOMATED 186 10^3/uL (150-450)
[2025-03-28 11:26] LABS: CALCIUM LEVEL 9.3 MG/DL (8.3-10.6); CARBON DIOXIDE LEVEL 27 MMOL/L (20-31); CHLORIDE LEVEL 106 MMOL/L (98-107); CREATININE FOR GFR 1.20 MG/DL (0.70-1.30); GLOMERULAR FILTRATION RATE 60.8 (>35); POTASSIUM SERUM 4.0 MMOL/L (3.5-5.1); SODIUM LEVEL 146 MMOL/L (136-145)
[2025-03-28 11:28] LABS: C REACTIVE PROTEIN QUANTITATIV < 0.50 MG/DL (<1.0)
== END ==
PROVIDERS: ATTEND Physician Assistant
DX: I10 Essential (primary) hypertension (principal)

== ENCOUNTER → 2025-03-30 | Outpatient (REF) | payer MEDICARE, MEDICAID ==
[2025-03-30 11:02] LABS: PLATELET COUNT, AUTOMATED 138 10^3/uL (150-450)
[2025-03-30 11:14] LABS: CALCIUM LEVEL 8.5 MG/DL (8.3-10.6); CARBON DIOXIDE LEVEL 24.0 MMOL/L (20-31); CHLORIDE LEVEL 108.0 MMOL/L (98-107); CREATININE FOR GFR 1.2 MG/DL (0.70-1.30); GLOMERULAR FILTRATION RATE 60.8 (>35); POTASSIUM SERUM 4.2 MMOL/L (3.5-5.1); SODIUM LEVEL 143.0 MMOL/L (136-145)
== END ==
PROVIDERS: ATTEND Physician Assistant
DX: E86.0 Dehydration (principal)

== ENCOUNTER → 2025-04-25 | Outpatient (REF) | payer MEDICARE, MEDICAID ==
[~2025-04-25] MED LIST changes: -BACTDSTA PO; +SULF-8 PO
[2025-04-25 13:21] LABS: PLATELET COUNT, AUTOMATED 167 10^3/uL (150-450)
[2025-04-25 13:49] LABS: C REACTIVE PROTEIN QUANTITATIV < 0.50 MG/DL (<1.0); CALCIUM LEVEL 9.0 MG/DL (8.3-10.6); CARBON DIOXIDE LEVEL 31 MMOL/L (20-31); CHLORIDE LEVEL 104 MMOL/L (98-107); CREATININE FOR GFR 1.34 MG/DL (0.70-1.30); GLOMERULAR FILTRATION RATE 53.2 (>35); POTASSIUM SERUM 4.3 MMOL/L (3.5-5.1); SODIUM LEVEL 142 MMOL/L (136-145)
== END ==
PROVIDERS: ATTEND Physician Assistant
DX: I10 Essential (primary) hypertension (principal); M06.9 Rheumatoid arthritis, unspecified